=== PATIENT | male | born 1945 | race Caucasian/White ===

== ENCOUNTER → 2018-08-09 12:14 | Outpatient (CLI) | payer MEDICARE, OTHER, SELFPAY ==
[2018-08-09 12:57] LABS: Add Manual Diff / Slide Review NO; Basophils Percent Auto 1.4 % (0-2); Eosinophils Percent Auto 2.7 % (2-4); Hematocrit 42.5 % (41-53); Hemoglobin 14.3 g/dL (13.5-17.5); Lymphocytes Percent Auto 22.8 % (25-40); Mean Corpuscular HGB Conc 33.6 % (30-36); Mean Corpuscular Hemoglobin 31.8 PG (26-34); Mean Corpuscular Volume 94.5 fL (80-100); Monocytes Percent Auto 13.7 % (3-14); Neutrophils Absolute Auto 3100 /uL (3000-5900); Neutrophils Percent Auto 59.4 % (50-75); Platelet Count 237 X10^3/uL (150-400); Red Cell Distribution Width 13.6 % (11.6-14.8); White Blood Cell Count 5.2 X10^3/uL (4.5-11.0)
[2018-08-09 13:08] LABS: BUN Creatinine Ratio 21.3 (6-22); Blood Urea Nitrogen 17 mg/dL (9-20); Calcium 9.2 mg/dL (8.4-10.2); Carbon Dioxide 24 mmol/L (22-32); Chloride 101 mmol/L (98-107); Estimated Glomerular Filt Rate > 60.0 mL/min (>60); Glucose 86 mg/dL (80-110); HEMOLYSIS < 15 (0-50); Potassium 4.2 mmol/L (3.4-5.1); Sodium 141 mmol/L (137-145)
== END ==
DX: K40.90 Unilateral inguinal hernia, without obstruction or gangrene, not specified as recurrent (principal)
CPT/HCPCS: 36415; 80048; 85025

== ENCOUNTER 2019-09-24 15:45 | Emergency (ER) | payer MEDICARE, OTHER, SELFPAY ==
[2019-09-24 15:59] VITALS: BP 130/83; PULSE 84; RESP 20; TEMP 36.4; O2SAT 97
--- NOTE | 2019-09-24 16:01 | DI.RAD.S_ITS ---
PROCEDURE: XR CHEST 2V INDICATIONS: cough x2 wks TECHNIQUE: 2 views of the chest were acquired. COMPARISON: [facility], , CHEST 1 VIEW, 11/09/2016, 11:23. FINDINGS: Surgical changes and devices: None. Lungs and pleura: Mild elevation of the left diaphragm is evident, which may be exaggerated by air within the bowel. No focal consolidation is appreciated. No effusion or definite pneumothorax is identified. Mediastinum: Mediastinal contours are normal. Heart size is normal. Bones and chest wall: No suspicious bony abnormalities. Soft tissues appear unremarkable. IMPRESSION: No acute cardiopulmonary process is evident. Dictated by: Joseph Calixto M.D. on 09/24/2019 at 15:29 Approved by: Joseph Calixto M.D. on 09/24/2019 at 15:29
--- NOTE | 2019-09-24 17:23 | ED.URI ---
HPI - URI/Sore Throat <MINERVA Mejia - Last Filed: 09/25/19 01:44> General Chief Complaint: Upper Respiratory Symptoms Stated Complaint: cough couple of weeks/cant get rid of it Time Seen by Provider: 09/24/19 17:23 Source: patient Mode of arrival: Ambulatory Limitations: no limitations History of Present Illness HPI Narrative: This is a 73-year-old gentleman, former smoker, who presents to ED with cough for last 10 days. Patient reports clear productive cough without short of breath, chest pain, fever or chills, nausea or vomiting. Patient does not have previous history of respiratory disease illnesses. Patient has not tried any self treatment at home. Patient states he is taking aspirin 500 mg t.i.d. for osteoarthritis. Related Data Home Medications Medication Instructions Recorded Confirmed LEUPROLIDE ACETATE (#LUPRON) 5 mg SC Q 4 MONTHS #0 09/17/11 [bladder control] #0 11/28/17 [blood thinner] #0 11/28/17 aspirin [Chen Advanced] #0 11/28/17 clopidogrel #0 11/28/17 triamcinolone acetonide #0 11/28/17 Previous Rx's Medication Instructions Recorded ibuprofen 600 mg PO Q6HP PRN #30 tab 11/09/16 indomethacin 50 mg PO TID #42 cap 11/28/17 benzonatate 200 mg PO TID PRN #14 cap 09/24/19 dextromethorphan-guaifenesin 1 tab PO BID PRN #20 tab 09/24/19 [Mucinex DM] Review of Systems <MINERVA Mejia - Last Filed: 09/25/19 01:44> Review of Systems Narrative: General: Denies fever, chills, fatigue, malaise, sweats. HEENT: Denies sinus pain, ear pain, sore throat, difficulty swallowing, dizziness. Respiratory: See HPI Cardiovascular: Denies chest pain, palpitations, orthopnea, edema. Gastrointestinal: Denies nausea, vomiting, abdominal pain, diarrhea, constipation, melena. : Denies dysuria, frequency, incontinence, hematuria, urinary retention. Musculoskeletal: Denies weakness, joint pain or bony pain. Skin: Denies rash, skin lesions, or other. Neurologic: Denies weakness, headache, numbness, change in speech, confusion, seizures, incoordination. Psychiatric: No concerning psychosocial issues. 12-point review of systems is negative except for those stated above. Patient History <MINERVA Mejia - Last Filed: 09/25/19 01:44> Medical History Popliteal aneurysm (Acute) Prostate cancer (Acute) Surgical History H/O hernia repair (Acute) Social History (Updated 09/24/19 @ 17:37 by MINERVA Mejia) Smoking Status: Former smoker Exam <MINERVA Mejia - Last Filed: 09/25/19 01:44> Narrative Exam Narrative: GEN: Alert, oriented x 3, well appearing and nourished, and in no acute distress. Head: Normal cephalic, atraumatic. No scalp or temporal tenderness, palpable mass or rash. EYES: Pupils are equal, round, and reactive to light and accommodation. Extraocular muscles are intact bilaterally. There is no subconjunctival hemorrhage, exudate and sclera non-icteric. ENT: Bilateral auditory canals and tympanic membranes clear. Hearing grossly intact. Nose without bleeding, purulent discharge or deviation. Facial sinuses nontender to palpate. Mucous membrane moist, no mucosal lesion. Throat without erythema, tonsillar hypertrophy or exudate. Uvula in midline, airway patent. Neck: Trachea in midline. No JVD, non-tender without lymphadenopathy. No masses or thyroid megaly. Supple, non-tender and no meningeal signs. CARDIAC: Normal regular rate and rhythm without murmurs, gallops, or rubs. No chest wall tenderness. No peripheral edema, cyanosis or pallor. Capillary refill is less than 2 seconds. RESPIRATORY: Lungs are clear to auscultate bilaterally. No cough, wheezes, rales, or rhonchi. No stridor, respiratory distress, increase work of breathing, or accessary muscle used. ABD: Abdomen soft, nontender and non-distended. No guarding or rebound tenderness to palpate. Bowel sounds are normal in all 4 quadrants. There is no palpable masses or organomegaly. EXT: Full painless ROM of all extremities with no loss of sensation, strength, effusion or edema. SKIN: Warm, dry, normal color for patient. No erythema, lesions or rash over visible areas. BACK: Nontender without deformity or crepitance. No flank tenderness. NEUROLOGICAL: Alert and oriented to place, time and person. Sensation and motor function intact bilaterally. No facial droops, dysphasia. PSYCHIATRIC: Good judgement and reason, without hallucinations, abnormal affect or abnormal behaviors during the examination. Patient is not suicidal. Initial Vital Signs Initial Vital Signs: Vital Signs Temperature 97.6 F 09/24/19 15:59 Pulse Rate 84 09/24/19 15:59 Respiratory Rate 20 09/24/19 15:59 Blood Pressure 130/83 09/24/19 15:59 Pulse Oximetry 97 09/24/19 15:59 <Mayra Echeverria MD - Last Filed: 09/25/19 18:42> Initial Vital Signs Initial Vital Signs: Vital Signs Temperature 97.6 F 09/24/19 15:59 Pulse Rate 84 09/24/19 15:59 Respiratory Rate 20 09/24/19 15:59 Blood Pressure 130/83 09/24/19 15:59 Pulse Oximetry 97 09/24/19 15:59 Course <MINERVA Mejia - Last Filed: 09/25/19 01:44> Orders Ordered: ED Orders 09/24/19 16:01 Chest [XR chest 2V] Stat Vital Signs Vital signs: Vital Signs - 8 hr 09/24/19 15:59 Temperature 97.6 F Pulse Rate 84 Respiratory Rate 20 Blood Pressure 130/83 Pulse Oximetry 97 <Mayra Echeverria MD - Last Filed: 09/25/19 18:42> Orders Ordered: ED Orders 09/24/19 16:01 Chest [XR chest 2V] Stat Vital Signs Vital signs: Vital Signs - 8 hr 09/24/19 15:59 Temperature 97.6 F Pulse Rate 84 Respiratory Rate 20 Blood Pressure 130/83 Pulse Oximetry 97 MDM - URI/Sore Throat <MINERVA Mejia - Last Filed: 09/25/19 01:44> Differential Diagnosis Differential diagnosis: Likely upper respiratory infection and other (Bronchitis, pneumonia) Medical Records Attestation: I reviewed the patient's medical records. Imaging Data Chest x-ray: Radiologist's impression: [address] [address] XRay Report Signed Patient: Gregory Colvin EMR#: [id number] : 4Acct:[id number] Age/Sex: 73 / MDate of Service: 09/24/19 Loc: ED Accession Number: [id number] Procedure: XR chest 2V Ordering Provider: Mayra Echeverria MD PROCEDURE: XR CHEST 2V INDICATIONS: cough x2 wks TECHNIQUE: 2 views of the chest were acquired. COMPARISON: [facility], , CHEST 1 VIEW, 11/09/2016, 11:23. FINDINGS: Surgical changes and devices: None. Lungs and pleura: Mild elevation of the left diaphragm is evident, which may be exaggerated by air within the bowel. No focal consolidation is appreciated. No effusion or definite pneumothorax is identified. Mediastinum: Mediastinal contours are normal. Heart size is normal. Bones and chest wall: No suspicious bony abnormalities. Soft tissues appear unremarkable. IMPRESSION: No acute cardiopulmonary process is evident. Dictated by: Joseph Calixto M.D. on 09/24/2019 at 15:29 Approved by: Jospeh Calixto M.D. on 09/24/2019 at 15:29 [facility] Narrative Medical decision making narrative: This is a 73 year male who presents to ED with nearly 10 day duration of clear mucus productive cough. Patient denies chest pain, dyspnea, fever, nausea or vomiting. Lung sounds are clear to auscultate without respiratory distress. Chest x-ray shows no acute findings such as focal consolidation or effusion. I discussed in detail with patient to treat symptoms with supportive care and cough may last up to 2-3 weeks. Patient discharged to home with tests alone cough per his and Mucinex DM. Patient advised to hydrate well and rest. Strict return precautions were discussed with patient and patient verbalized understanding. [facility] health Resource contact phone number has been provided for patient to arrange primary care physician. Patient agrees with the treatment plan. Discharge Plan Departure Patient Disposition: Home Clinical Impression: Upper respiratory infection Qualifiers: URI type: unspecified URI Qualified Code(s): J06.9 - Acute upper respiratory infection, unspecified Discharge Date/Time: 09/24/19 18:24 Instructions: DI for Viral Upper Respiratory Infection -- Adult Activity Restrictions/Additional Instructions: The You have been diagnosed with [upper respiratory infection. X-ray test today does not show acute findings such as pneumonia. Her lung sounds are clear in all lobes. He did not have fever.]. What to do: *Take your medications as directed. Please take Mucinex DM with congestion. Tessalon Perles as needed 3 times a day for cough. Please hydrate well and rest. *Follow up with your primary care provider in 2-3 days, call for an appointment. Let them know you were seen in the ED and that we asked you to be seen in follow up. *Return to ED if you have any new, worsening, or concerning symptoms, such as [chest pain, breathing difficulty, high fever, unable to tolerate fluids, feeling like fainting, or any acute concerns]. Prescriptions: New benzonatate 200 mg capsule 200 mg PO TID PRN (Reason: cough) Qty: 14 RF: 0 dextromethorphan-guaifenesin [Mucinex DM] 60-1,200 mg tablet extended release 12 hr 1 tab PO BID PRN (Reason: cold symptoms) Qty: 20 RF: 0 No Action LEUPROLIDE ACETATE (#LUPRON) 5 mg SC Q 4 MONTHS Qty: 0 RF: 0 ibuprofen 600 MG tablet 600 mg PO Q6HP PRNQty: 30 RF: 0 [bladder control] Qty: 0 RF: 0 [blood thinner] Qty: 0 RF: 0 clopidogrel 75 mg tablet Qty: 0 RF: 0 triamcinolone acetonide 0.025 % cream Qty: 0 RF: 0 aspirin [Chen Advanced] 500 MG tablet Qty: 0 RF: 0 indomethacin 50 MG capsule 50 mg PO TID Qty: 42 RF: 0 Referrals: [facility] [Outside]
== END 2019-09-24 18:24 | disposition home or self-care (01) ==
PROVIDERS: Emergency Provider Nurse Practitioner Family
DX: J06.9 Acute upper respiratory infection, unspecified (principal)
CPT/HCPCS: 71046; 99283

== ENCOUNTER 2019-10-01 07:45 | Emergency (ER) | payer MEDICARE, OTHER, SELFPAY ==
[2019-10-01 07:50] VITALS: BP 148/85; PULSE 65; RESP 20; TEMP 36.8; O2SAT 97; BMI 27.7
--- NOTE | 2019-10-01 08:04 | ED_ITS ---
HPI - URI/Sore Throat General Chief Complaint: Upper Respiratory Symptoms Stated Complaint: coughing,hard rattling Time Seen by Provider: 10/01/19 07:49 Source: patient Mode of arrival: Family Vehicle Limitations: no limitations History of Present Illness HPI Narrative: Patient is 73-year-old male who's had ongoing cough and upper respiratory symptoms for 2 weeks. He was seen evaluated here on 09/24/2019 he had an x-ray which was negative. Told was a viral syndrome. Given Mucinex and sent home. He thought it was maybe getting little bit better over last night he had quite a coughing spell. He denies any chest pain or shortness of breath he denies any productive cough. He has not had any body aches sore throat. He is able to walk and ambulate as he normally does without any difficulty. He says now has symptoms as well. He is worried with the [place] holiday coming up mode that he might be contagious till. MD Complaint: cough Duration: intermittent Related Data Home Medications Medication Instructions Recorded Confirmed LEUPROLIDE ACETATE (#LUPRON) 5 mg SC Q 4 MONTHS #0 09/17/11 [bladder control] #0 11/28/17 [blood thinner] #0 11/28/17 aspirin [Chen Advanced] #0 11/28/17 clopidogrel #0 11/28/17 triamcinolone acetonide #0 11/28/17 Previous Rx's Medication Instructions Recorded ibuprofen 600 mg PO Q6HP PRN #30 tab 11/09/16 indomethacin 50 mg PO TID #42 cap 11/28/17 benzonatate 200 mg PO TID PRN #14 cap 09/24/19 dextromethorphan-guaifenesin 1 tab PO BID PRN #20 tab 09/24/19 [Mucinex DM] albuterol sulfate 2 puff INHALATION Q4-6H PRN #8.5 10/01/19 gram Allergies Allergy/AdvReac Type Severity Reaction Status Date / Time No Known Drug Allergies Allergy Verified 10/01/19 08:07 Review of Systems Review of Systems Narrative: GENERAL: Denies chills, fatigue, malaise, fever, sweats, travel HEENT: Denies sinus pain, ear pain, sore throat, difficulty swallowing, neck pain RESPIRATORY: See HPI CARDIOVASCULAR: Denies chest pain, palpitations, orthopnea, edema GASTROINTESTINAL: Denies nausea, vomiting, abdominal pain, diarrhea, constipation, melena. : Denies dysuria, frequency, incontinence, hematuria, urinary retention, flank pain. MUSCULOSKELETAL: Denies weakness, joint pain, or bony pain SKIN: No rash, no erythema, no pruritus NEUROLOGIC: Denies weakness, dizziness, headache, numbness, change in speech, confusion PSYCHIATRIC: No concerning psychosocial issues. 12 point review of systems is negative except for those stated above and HPI Patient History Medical History Popliteal aneurysm (Acute) Prostate cancer (Acute) Surgical History H/O hernia repair (Acute) Social History Smoking Status: Former smoker Smoking Status: Former smoker Exam Initial Vital Signs Initial Vital Signs: Vital Signs Temperature 98.2 F 10/01/19 07:50 Pulse Rate 65 10/01/19 07:50 Respiratory Rate 20 10/01/19 07:50 Blood Pressure 148/85 H 10/01/19 07:50 Pulse Oximetry 97 10/01/19 07:50 GENERAL: Well-appearing, well-nourished and in no acute distress. HEENT: Head atraumatic,EOMI, pupils reactive, face symmetric, moist mucous membranes CARDIOVASCULAR: Regular rate and rhythm without murmurs, rubs or gallops. RESPIRATORY: Coarse breath sounds clear with coughing but no tachypnea, no wheezes speaks in full sentences no sign of respiratory distress ABDOMEN: Soft, nontender. Normoactive bowel sounds all 4 quadrants. No guarding or rebound. : No CVA tenderness EXTREMITIES: Normal range of motion, no clubbing or edema. Neurovascularly intact NEUROLOGICAL: Alert and oriented x4. SKIN: Warm, dry, no laceration, no petechiae, no rashes or lesions. Course Orders Ordered: ED Orders 10/01/19 08:05 XR chest 2V Stat Discontinued Medications Albuterol (Ventolin) 2.5 mg INH NOW ONE Stop: 10/01/19 08:06 Last Admin: 10/01/19 08:21 Dose: 2.5 mg Documented by: JESSICA Vital Signs Vital signs: Vital Signs - 8 hr 10/01/19 07:50 10/01/19 08:22 Temperature 98.2 F Pulse Rate 65 64 Respiratory Rate 20 Blood Pressure 148/85 H Pulse Oximetry 97 98 [facility] - URI/Sore Throat Imaging Data Chest x-ray: Radiologist's impression: PROCEDURE: XR CHEST 2V INDICATIONS: cough TECHNIQUE: 2 views of the chest were acquired. COMPARISON: [facility], CR, XR CHEST 2V, 09/24/2019, 15:57. FINDINGS: Surgical changes and devices: None. Lungs and pleura: Lungs are clear. No pleural effusions or pneumothorax. Mediastinum: Mediastinal contours are normal. Heart size is normal. Bones and chest wall: No suspicious bony abnormalities. Soft tissues appear unremarkable. IMPRESSION: No evidence acute pulmonary process. Dictated by: Milo Menjivar M.D. on 10/01/2019 at 8:40 MDM Narrative Medical decision making narrative: PATIENT IS FEELING BETTER AFTER NEBULIZER TREATMENT. He overall appears well he has no signs or symptoms of shortness of breath fever or any other concerning symptoms. This is likely an upper respiratory infection viral in nature. X-ray does show any pneumonia no for antibiotics. Discharge Plan Departure Patient Disposition: Home Clinical Impression: Upper respiratory infection Qualifiers: URI type: unspecified viral URI Qualified Code(s): J06.9 - Acute upper respiratory infection, unspecified Instructions: DI for Viral Upper Respiratory Infection -- Adult Activity Restrictions/Additional Instructions: *You have been diagnosed with upper respiratory infection *What to do: At this time still no indication for antibiotics. Unfortunately her symptoms can linger for a couple of weeks. Continue to rest and hydrate. Consider wearing a mask when seeing people *Continue to take medications as directed Albuterol 1-2 puffs with spacer every 4 hours if needed for coughing spells--> SENT TO [facility] [place] *Follow up with your primary care provider in 2-3 days *Return to ER if you should have increasing shortness of breath body aches fever weakness confusion chest pain or any new, worsening or concerning symptoms Prescriptions: New albuterol sulfate 90 mcg/actuation HFA aerosol inhaler 2 puff INHALATION Q4-6H PRN (Reason: shortness of breath or wheezing) Qty: 8.5 RF: 0 No Action LEUPROLIDE ACETATE (#LUPRON) 5 mg SC Q 4 MONTHS Qty: 0 RF: 0 ibuprofen 600 MG tablet 600 mg PO Q6HP PRNQty: 30 RF: 0 [bladder control] Qty: 0 RF: 0 [blood thinner] Qty: 0 RF: 0 clopidogrel 75 mg tablet Qty: 0 RF: 0 triamcinolone acetonide 0.025 % cream Qty: 0 RF: 0 aspirin [Chen Advanced] 500 MG tablet Qty: 0 RF: 0 indomethacin 50 MG capsule 50 mg PO TID Qty: 42 RF: 0 benzonatate 200 mg capsule 200 mg PO TID PRN (Reason: cough) Qty: 14 RF: 0 dextromethorphan-guaifenesin [Mucinex DM] 60-1,200 mg tablet extended release 12 hr 1 tab PO BID PRN (Reason: cold symptoms) Qty: 20 RF: 0
[2019-10-01] MEDS: ALBUTEROL 2.5 MG/3 ML NEB (ADULT) INH (08:21)
[2019-10-01 08:22] VITALS: PULSE 64; O2SAT 98
[2019-10-01 09:29] VITALS: BP 133/72; PULSE 64; RESP 18; O2SAT 98
== END 2019-10-01 09:31 | disposition home or self-care (01) ==
PROVIDERS: Emergency Provider Emergency Medicine
DX: J06.9 Acute upper respiratory infection, unspecified (principal)
CPT/HCPCS: 71046; 94640; 99282; 99283; J7613

== ENCOUNTER → 2019-12-12 15:00 | Outpatient (CLI) | payer MEDICARE, OTHER, SELFPAY ==
[2019-12-12 16:48] LABS: Add Manual Diff / Slide Review NO; Basophils Absolute Auto 100 /uL (0-100); Eosinophils Absolute Auto 100 /uL (0-450); Eosinophils Percent Auto 1.9 % (2-4); Hematocrit 39.5 % (41-53); Hemoglobin 13.2 g/dL (13.5-17.5); Lymphocytes Absolute Auto 1400 /uL (1100-4500); Lymphocytes Percent Auto 22.5 % (25-40); Mean Corpuscular HGB Conc 33.3 % (30-36); Mean Corpuscular Hemoglobin 31.5 PG (26-34); Mean Corpuscular Volume 94.5 fL (80-100); Monocytes Absolute Auto 700 /uL (0-900); Monocytes Percent Auto 10.4 % (3-14); Neutrophils Absolute Auto 4000 /uL (1500-7000); Neutrophils Percent Auto 64.2 % (50-75); Platelet Count 218 X10^3/uL (150-400); Red Blood Cell Count 4.18 X10^6/uL (4.5-5.9); Red Cell Distribution Width 14.4 % (11.6-14.8); White Blood Cell Count 6.3 X10^3/uL (4.5-11.0)
[2019-12-12 17:29] LABS: Alanine Aminotransferase 18 IU/L (<50); Albumin 4.2 g/dL (3.5-5.0); Albumin Globulin Ratio 1.3 (1.0-2.8); Alkaline Phosphatase 78 U/L (38-126); Aspartate Aminotransferase 26 IU/L (17-59); BUN Creatinine Ratio 15.3 (6-22); Bilirubin Total 0.5 mg/dL (0.2-1.3); Blood Urea Nitrogen 23 mg/dL (9-20); Calcium 9.7 mg/dL (8.4-10.2); Carbon Dioxide 24 mmol/L (22-32); Chloride 107 mmol/L (98-107); Estimated Glomerular Filt Rate 45.6 mL/min (>60); Globulin 3.2 g/dL (1.7-4.1); Glucose 79 mg/dL (80-110); HEMOLYSIS < 15 (0-50); Potassium 4.2 mmol/L (3.4-5.1); Sodium 141 mmol/L (137-145); Total Protein 7.4 g/dL (6.3-8.2)
[2019-12-12 18:00] LABS: Prostate Specific Antigen 1.81 ng/mL (0.10-4.00)
== END ==
PROVIDERS: Pediatrics; Referring Provider Physician Assistant Medical; Visit Provider Physician Assistant Medical
DX: C61 Malignant neoplasm of prostate (principal)
CPT/HCPCS: 36415; 80053; 84153; 85025

== ENCOUNTER → 2019-12-13 16:13 | Outpatient (CLI) | payer MEDICARE, OTHER, SELFPAY ==
[2019-12-13 17:24] LABS: Cholesterol 233 mg/dL (140-199); HDL Cholesterol 64 mg/dL (40-60); LDL Cholesterol Calculated 151 mg/dL (<100); Triglycerides 91 mg/dL (35-150)
== END ==
PROVIDERS: Referring Provider Nuclear Medicine Nuclear Cardiology; Visit Provider Nuclear Medicine Nuclear Cardiology
DX: E78.5 Hyperlipidemia, unspecified (principal)
CPT/HCPCS: 36415; 80061

== ENCOUNTER → 2020-02-01 11:12 | Outpatient (CLI) | payer MEDICARE, OTHER, SELFPAY ==
[2020-02-01 12:45] LABS: Cholesterol 223 mg/dL (140-199); HDL Cholesterol 56 mg/dL (40-60); LDL Cholesterol Calculated 148 mg/dL (<100); Triglycerides 95 mg/dL (35-150)
== END ==
PROVIDERS: Referring Provider Nuclear Medicine Nuclear Cardiology; Visit Provider Physician Assistant Medical
DX: E78.5 Hyperlipidemia, unspecified (principal); C61 Malignant neoplasm of prostate
CPT/HCPCS: 36415; 80061; 84153

== ENCOUNTER 2020-08-05 10:50 | Observation (INO) | payer MEDICARE, OTHER, SELFPAY ==
[2020-08-05] VITALS (21 sets, daily range): BP systolic 121–168; BP diastolic 59–90; PULSE 55–82; RESP 11–23; TEMP 36.2–36.6; O2SAT 95–100; BMI 28.9
--- NOTE | 2020-08-05 11:21 | DI.CT.S_ITS ---
PROCEDURE: CT STROKE INDICATIONS: vision change with balance problem TECHNIQUE: Noncontrast 4.5 mm thick angled axial sections acquired from the foramen magnum to the vertex, with coronal reformats. For radiation dose reduction, the following was used: automated exposure control, adjustment of mA and/or kV according to patient size. COMPARISON: None. FINDINGS: Image quality: Excellent. CSF spaces: Basal cisterns are patent. No extra-axial fluid collections. The ventricles are symmetric in size and shape. Brain: No intracranial bleeds or masses. There is cerebral volume loss for age, with resultant ventricular and sulcal prominence. There are periventricular and deep white matter chronic small vessel ischemic changes. There is intracranial internal carotid artery atherosclerosis. Skull and face: Calvarium and visualized facial bones appear intact, without suspicious lesions. Sinuses: Visualized sinuses and mastoids are clear. IMPRESSION: No contraindication to tPA administration. No sign of acute or subacute stroke found. Findings immediately called to the emergency room physician caring for the patient at 11:35 a.m. This study fulfills neurological imaging criteria for inclusion or exclusion of acute stroke therapies based on available published neurological guidelines. Dictated by: Oseas Sellers M.D. on 08/05/2020 at 11:35 Approved by: Oseas Sellers M.D. on 08/05/2020 at 11:37
--- NOTE | 2020-08-05 11:29 | ED_ITS ---
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 His complaints include flashers and visual disturbance in both eyes and instability while walking. His symptoms started while driving to the [place] and his visual change has completely resolved. However, when walking in he was still having trouble g etting around. He states he went to bed in his normal state of health, but maybe felt a bit tired. He awoke at 0500 and was fine and (as stated) symptoms started at about 0900. He takes a large amount of aspirin daily for his arthritis. He denies fever or chills. He's had no recent traumatic injury. He was activated as a code stroke and taken to . Onset (ago): minute(s) Last Observed Normal: 09:00 Location: ataxia History of same: No Severity: moderate Quality: weak Relieving factors: none Exacerbating factors: none Context: sudden onset On Anticoagulants: Yes (Aspirin (states 500 mg 4 x daily)) Associated symptoms: denies other symptoms Treatments Prior to Arrival: Aspirin Related Data Home Medications Medication Instructions Recorded Confirmed LEUPROLIDE ACETATE (#LUPRON) 5 mg SC Q 4 MONTHS #0 09/17/11 Chen Advanced 1,000 mg PO BID #0 11/28/17 08/05/20 tamsulosin 0.4 mg PO BID 08/05/20 08/05/20 Allergies Allergy/AdvReac Type Severity Reaction Status Date / Time No Known Drug Allergies Allergy Verified 10/01/19 08:07 Review of Systems Constitutional Constitutional: Denies chills, Denies fatigue, Denies fever(s), Denies frequent falls, Denies lethargy and Denies weakness Eyes Eyes: Reports change in vision, Denies eye discharge, Denies irritation and Denies loss of vision ENT Ears, Nose, Mouth, and Throat: Denies change in voice, Denies dizziness, Denies neck pain, Reports disequilibrium, Denies sore throat and Denies throat swelling Cardiovascular Cardiovascular: Denies chest pain, Denies irregular heart rhythm, Denies lightheadedness, Denies palpitations, Denies dyspnea, Denies dyspnea on exertion and Denies orthopnea Respiratory Respiratory: Denies cough, Denies dyspnea, Denies dyspnea on exertion and Denies wheezing Gastrointestinal Gastrointestinal: Denies abdominal pain, Denies change in bowel habits, Denies diarrhea, Denies nausea and Denies vomiting Musculoskeletal Musculoskeletal: Denies neck pain and Denies numbness Integumentary/Breasts Skin/Breast: Denies pruritus, Denies erythema, Denies rash and Denies wounds Neurologic Neurologic: Denies behavioral changes, Denies confusion, Denies dizziness, Denies frequent falls, Denies loss of vision, Denies numbness, Reports disequilibrium and Denies weakness Psychiatric Psychiatric: Denies anxiety, Denies behavioral changes, Denies confusion, Denies depression, Denies homicidal ideation and Denies suicidal ideation Endocrine Endocrine: Denies fatigue, Denies flushing and Denies palpitations Hematologic/Lymphatic Hematologic/Lymphatic: Denies easy bruising Allergic/Immunologic Allergic/Immunologic: Denies urticaria, Denies throat swelling and Denies wheezing Patient History Medical History Popliteal aneurysm (Acute) Prostate cancer (Acute) Surgical History H/O hernia repair (Acute) Social History Smoking Status: Former smoker Smoking Status: Former smoker alcohol intake frequency: 0-2 drinks per day Substance Use Type: does not use Exam Narrative Exam Narrative: GENERAL: [74] year old patient appears stated age. Well- nourished, well-developed patient, in mild distress. HEAD: Atraumatic. Normocephalic. EYES: Pupils equal round and reactive. Extraocular motions intact. No scleral icterus. No injection or drainage. ENT: Nose without bleeding, purulent drainage. Throat without erythema, tonsillar hypertrophy or exudate. Airway patent. NECK: Trachea midline. Non tender CARDIOVASCULAR: Regular rate and rhythm without murmurs, gallops, or rubs. RESPIRATORY: Clear to auscultation. Breath sounds equal bilaterally. No wheezes, rales, or rhonchi. GASTROINTESTINAL: Abdomen soft, non-tender, nondistended. EXTREMITIES: No edema or joint tenderness. BACK: Nontender without deformity or crepitance. No flank tenderness. NEURO: AOx3. SKIN: No rash or erythema of visible areas Initial Vital Signs Initial Vital Signs: Vital Signs Temperature 97.9 F 08/05/20 10:50 Pulse Rate 78 08/05/20 10:50 Respiratory Rate 14 08/05/20 10:50 Blood Pressure 121/71 08/05/20 10:50 Pulse Oximetry 98 08/05/20 10:50 Scores NIH Stroke Scale Level of Conciousness: Alert, keenly responsive Ask month/age: Answers both questions correctly. Open/close eyes, close hand: Performs both tasks correctly Best gaze horizontal: Normal Visual cerrato: No visual loss Facial palsy: Normal symetrical movement Left arm drift: No drift for full 10 sec Right arm drift: No drift for full 10 sec Left leg drift: No drift for full 5 sec Right leg drift: No drift for full 5 sec Limb ataxia: Absent Sensory on face/arms/legs: Normal, no sensory loss Best language: No aphasia, normal Dysarthria: Normal Extinction or inattention: No abnormality Total NIH Stroke scale score: 0 Course Orders Ordered: ED Orders 08/05/20 11:07 Basic Metabolic Panel Stat Complete Blood Count AUTO DIFF Stat Partial Thromboplastin Time Stat Prothrombin Time INR Stat Salicylate Stat Troponin & CK Cardiac Panel Stat Urine Drug Screen, Rapid Stat EKG-12 Lead Stat 08/05/20 11:21 CT Stroke Stat 08/05/20 11:24 Venous Blood Gas Stat 08/05/20 11:55 CT angio head and neck Stat 08/05/20 12:10 COVID19 -ED/INPAT/OR/L&D Stat Sodium Chloride (Normal Saline 0.9%) 1,000 mls @ 150 mls/hr IV CONT MICHELLE Last Admin: 08/05/20 11:41 Dose: 150 mls/hr Documented by: AUGUSTINA Reevaluation(s) Reevaluation #1: symptoms largely resolved at this point. Able to ambulate through the department. Resolution of symptoms without intervention raises the likelihood of TIA. Patient will require hospitalization for further evaluation including echocardiogram and a likely MRI Vital Signs Vital signs: Vital Signs - 8 hr 08/05/20 10:50 08/05/20 10:59 08/05/20 11:00 Temperature 97.9 F Pulse Rate 78 79 82 Respiratory Rate 14 16 22 Blood Pressure 121/71 142/59 H Pulse Oximetry 98 98 97 08/05/20 11:15 08/05/20 11:35 08/05/20 11:45 Temperature Pulse Rate 73 63 58 L Respiratory Rate 23 16 Blood Pressure Pulse Oximetry 99 98 99 08/05/20 12:00 08/05/20 12:15 08/05/20 12:16 Temperature Pulse Rate 59 L 81 64 Respiratory Rate 19 20 Blood Pressure 137/75 Pulse Oximetry 99 95 98 08/05/20 12:30 Temperature Pulse Rate 63 Respiratory Rate 20 Blood Pressure 135/74 Pulse Oximetry 97 MDM - Neuro Symptoms/Deficit Lab Data Result diagrams: 08/05/20 11:07 08/05/20 11:07 Labs: Lab Results 08/05/20 08/05/20 08/05/20 Range/Units 11:07 11:07 11:07 WBC 5.1 (4.5-11.0) X10^3/uL RBC 4.06 L (4.5-5.9) X10^6/uL Hgb 12.7 L (13.5-17.5) g/dL Hct 38.5 L (41-53) % MCV 94.9 (80-100) fL MCH 31.2 (26-34) PG MCHC 32.9 (30-36) % RDW 13.9 (11.6-14.8) % Plt Count 242 (150-400) X10^3/uL Neut % (Auto) 67.3 (50-75) % Lymph % (Auto) 18.7 L (25-40) % Wheeler % (Auto) 11.6 (3-14) % Eos % (Auto) 1.7 L (2-4) % Baso % (Auto) 0.7 (0-2) % Neut # (Auto) 3400 (6739-1108) /uL Lymph # (Auto) 1000 L (4252-5049) /uL Wheeler # (Auto) 600 (0-900) /uL Eos # (Auto) 100 (0-450) /uL Baso # (Auto) 0 (0-100) /uL PT 11.2 (10.1-12.7) SECONDS INR 1.0 (0.9-1.3) APTT 30 (26.4-36.2) SECONDS VBG pH (7.33-7.43) VBG pCO2 (45-50) mmHg VBG pO2 (35-45) mmHg VBG HCO3 (23-28) mmol/L VBG Total CO2 (24-29) mmol/L VBG O2 Saturation (70-75) % VBG Base Excess (0-4) mmol/L Sodium 137 (137-145) mmol/L Potassium 4.0 (3.4-5.1) mmol/L Chloride 106 (98-107) mmol/L Carbon Dioxide 26 (22-32) mmol/L BUN 22 H (9-20) mg/dL Creatinine 0.80 (0.66-1.25) mg/dL Estimated GFR > 60.0 (>60) mL/min BUN/Creatinine Ratio 27.5 H (6-22) Glucose 87 (80-110) mg/dL Calcium 8.8 (8.4-10.2) mg/dL Total Creatine Kinase 53 L (55-170) U/L CK-MB (CK-2) TNP CK-MB (CK-2) Rel Index TNP Troponin I < 0.012 (0.01-0.034) ng/mL Salicylates 1.0 (<20) mg/dL COVID-19 PCR (Negative) 08/05/20 08/05/20 Range/Units 11:24 12:10 WBC (4.5-11.0) X10^3/uL RBC (4.5-5.9) X10^6/uL Hgb (13.5-17.5) g/dL Hct (41-53) % MCV (80-100) fL MCH (26-34) PG MCHC (30-36) % RDW (11.6-14.8) % Plt Count (150-400) X10^3/uL Neut % (Auto) (50-75) % Lymph % (Auto) (25-40) % Wheeler % (Auto) (3-14) % Eos % (Auto) (2-4) % Baso % (Auto) (0-2) % Neut # (Auto) (9082-7364) /uL Lymph # (Auto) (3346-1345) /uL Wheeler # (Auto) (0-900) /uL Eos # (Auto) (0-450) /uL Baso # (Auto) (0-100) /uL PT (10.1-12.7) SECONDS INR (0.9-1.3) APTT (26.4-36.2) SECONDS VBG pH 7.48 H (7.33-7.43) VBG pCO2 32.7 L (45-50) mmHg VBG pO2 30 L (35-45) mmHg VBG HCO3 24 (23-28) mmol/L VBG Total CO2 25 (24-29) mmol/L VBG O2 Saturation 64 L (70-75) % VBG Base Excess 1.0 (0-4) mmol/L Sodium (137-145) mmol/L Potassium (3.4-5.1) mmol/L Chloride (98-107) mmol/L Carbon Dioxide (22-32) mmol/L BUN (9-20) mg/dL Creatinine (0.66-1.25) mg/dL Estimated GFR (>60) mL/min BUN/Creatinine Ratio (6-22) Glucose (80-110) mg/dL Calcium (8.4-10.2) mg/dL Total Creatine Kinase (55-170) U/L CK-MB (CK-2) CK-MB (CK-2) Rel Index Troponin I (0.01-0.034) ng/mL Salicylates (<20) mg/dL COVID-19 PCR Negative (Negative) Point of Care Testing Glucose POC 101 Urine Dip Bedside Urine Glucose Negative Bedside Urine Bilirubin - Negative Bedside Urine Ketone - Negative Urine Specific [place] 1.010 Bedside Urine Occult Blood - Negative Bedside Urine pH 6.0 Bedside Urine Protein - Negative Bedside Urine Urobilinogen - Negative Bedside Urine Nitrite - Negative Bedside Urine Leukocytes - Negative Esterase Imaging Data CT scan - head: Radiologist's Impression: [address] [address] [address] Scan Report Signed Patient: Gregory Colvin EMR#: [id number] : 4Acct:[id number] Age/Sex: 74 / MDate of Service: 08/05/20 Loc: ED Accession Number: [id number] Procedure: CT Stroke Ordering Provider: Deacon Tolentino D.O. PROCEDURE: CT STROKE INDICATIONS: vision change with balance problem TECHNIQUE: Noncontrast 4.5 mm thick angled axial sections acquired from the foramen magnum to the vertex, with coronal reformats. For radiation dose reduction, the following was used: automated exposure control, adjustment of mA and/or kV according to patient size. COMPARISON: None. FINDINGS: Image quality: Excellent. CSF spaces: Basal cisterns are patent. No extra-axial fluid collections. The ventricles are symmetric in size and shape. Brain: No intracranial bleeds or masses. There is cerebral volume loss for age, with resultant ventricular and sulcal prominence. There are periventricular and deep white matter chronic small vessel ischemic changes. There is intracranial internal carotid artery atherosclerosis. Skull and face: Calvarium and visualized facial bones appear intact, without suspicious lesions. Sinuses: Visualized sinuses and mastoids are clear. IMPRESSION: No contraindication to tPA administration. No sign of acute or subacute stroke found. Findings immediately called to the emergency room physician caring for the patient at 11:35 a.m. This study fulfills neurological imaging criteria for inclusion or exclusion of acute stroke therapies based on available published neurological guidelines. Dictated by: Oseas Sellers M.D. on 08/05/2020 at 11:35 Approved by: Oseas Sellers M.D. on 08/05/2020 at 11:37 [facility] [employer] DATE TYPE STATUS REF RANGE/AUTHOR Hx 08/05/20 11:55 Jassi Saleem 08/05/20 11:21 Oseas Sellers 10/01/19 08:05 Milo Menjivar 09/24/19 16:01 MarilyMoizJosephdavid ColvinGregory Henriquez 74, M1945 ADM [facility], [facility] ED R10 88.9kg Search Chart No Data to Display NF - Not included in interaction checking ONSET Today 12:30 Colvin,Gregory Henriquez 74 M [address] [address] [address] Scan Report Signed Patient: Gregory Colvin EMR#: [id number] : 4Acct:[id number] Age/Sex: 74 / MDate of Service: 08/05/20 Loc: ED Accession Number: [id number] Procedure: CT angio head and neck Ordering Provider: Deacon Tolentino D.O. PROCEDURE: CT ANGIO HEAD AND NECK INDICATIONS: stroke symptoms TECHNIQUE: Noncontrast images were performed earlier in the day and not repeated. After the administration of intravenous contrast, 1 mm thick sections acquired from the aortic arch through the [place] of [place]. Post-contrast 4.5 mm thick sections then re- acquired from the foramen magnum to the vertex. 3-dimensional snvkcka-jsvgvsicb-exdtreiezs (MIP) and/or volume rendering reformats were acquired of the central intracranial vasculature and neck separately. COMPARISON: [facility], CT, HEAD WITHOUT CONTRAST, 09/17/2011, 14:22. [facility], CT, CT STROKE, 08/05/2020, 11:20. FINDINGS: Image quality: Excellent. BRAIN: CSF spaces: Ventricles are normal in size and shape. Basal cisterns are patent. No extra-axial fluid collections. Brain: No midline shift. No intracranial bleeds or masses. Rodriguez-white matter interface appears intact. Skull and face: Calvarium and facial bones appear intact, without suspicious lesions. Orbits appear normal. Sinuses: Sinuses and mastoids are clear. HEAD CT ANGIOGRAPHY: Anterior circulation: Intracranial internal carotid arteries are normal in size and flow. The flow within the paired anterior cerebral arteries is normal and symmetric. The flow within the middle cerebral arteries is normal and symmetric. The anterior communicating artery is seen. No aneurysms are seen. Posterior circulation: Visualized portions of the vertebral arteries demonstrate normal caliber, and join to form a normal appearing basilar artery. Flow within the posterior cerebral arteries is normal and symmetric. No aneurysms are seen. NECK CT ANGIOGRAPHY: Carotid system: The great vessels demonstrate a conventional anatomy as they arise from the aortic arch. The origins of the common carotid arteries appear patent. The common carotid arteries demonstrate normal caliber and courses. The bifurcation regions are both widely patent. The internal carotid arteries demonstrate normal calibers and courses. Posterior circulation: The origins of the vertebral arteries both appear widely patent. The more superior extracranial portions of both vertebral arteries also demonstrate normal courses and calibers. They join to form a normal appearing basilar artery. Soft tissues: Visualized neck soft tissues demonstrate no suspicious abnormalities. Bones: No suspicious bony lesions. Visualized cervical spine appears normally aligned. Relatively prominent lower cervical spine degenerative changes are seen, including moderate disc space narrowing at C4-C5, with moderate to severe disc space narrowing at C5-C6 and C6-C7. IMPRESSION: No significant intracranial arterial abnormality is seen. Within the arteries of the neck, no hemodynamically significant stenosis can be seen. Cervical spine degenerative changes are seen, which are most prominent inferio rly. Any quantitative measurements of stenosis were performed using NASCET criteria. Dictated by: Jassi Saleem M.D. on 08/05/2020 at 10:57 Approved by: Jassi Saleem M.D. on 08/05/2020 at 11:06 ECG Data Attestation: I personally reviewed and interpreted this ECG as follows: Interpretation: NSR with rate of 73. AL 200. QRS 76. QT 396. No ectopy. Q wave in inferior leads. MDM Narrative Medical decision making narrative: patient requires hospitalization for further evaluation. He arrived in time frame which would allow for TPA but given complete resolution of symptoms he is not a candidate. Discharge Plan Departure Patient Disposition: Admitted as Observation Clinical Impression: Transient cerebral ischemia Qualifiers: Transient cerebral ischemia type: unspecified Qualified Code(s): G45.9 - Transient cerebral ischemic attack, unspecified Admit Date/Time: 08/05/20 13:07 Admit Provider: Jayashree Adames
[2020-08-05] MEDS: SODIUM CHLORIDE 0.9% 1,000 ML 150 ML IV (11:41)
--- NOTE | 2020-08-05 11:55 | DI.CT.S_ITS ---
PROCEDURE: CT ANGIO HEAD AND NECK INDICATIONS: stroke symptoms TECHNIQUE: Noncontrast images were performed earlier in the day and not repeated. After the administration of intravenous contrast, 1 mm thick sections acquired from the aortic arch through the [place] of [place]. Post-contrast 4.5 mm thick sections then re-acquired from the foramen magnum to the vertex. 3-dimensional ylktzwb-qtqkqsmyv-lgrxkotciu (MIP) and/or volume rendering reformats were acquired of the central intracranial vasculature and neck separately. COMPARISON: [facility], CT, HEAD WITHOUT CONTRAST, 09/17/2011, 14:22. [facility], CT, CT STROKE, 08/05/2020, 11:20. FINDINGS: Image quality: Excellent. BRAIN: CSF spaces: Ventricles are normal in size and shape. Basal cisterns are patent. No extra-axial fluid collections. Brain: No midline shift. No intracranial bleeds or masses. Rodriguez-white matter interface appears intact. Skull and face: Calvarium and facial bones appear intact, without suspicious lesions. Orbits appear normal. Sinuses: Sinuses and mastoids are clear. HEAD CT ANGIOGRAPHY: Anterior circulation: Intracranial internal carotid arteries are normal in size and flow. The flow within the paired anterior cerebral arteries is normal and symmetric. The flow within the middle cerebral arteries is normal and symmetric. The anterior communicating artery is seen. No aneurysms are seen. Posterior circulation: Visualized portions of the vertebral arteries demonstrate normal caliber, and join to form a normal appearing basilar artery. Flow within the posterior cerebral arteries is normal and symmetric. No aneurysms are seen. NECK CT ANGIOGRAPHY: Carotid system: The great vessels demonstrate a conventional anatomy as they arise from the aortic arch. The origins of the common carotid arteries appear patent. The common carotid arteries demonstrate normal caliber and courses. The bifurcation regions are both widely patent. The internal carotid arteries demonstrate normal calibers and courses. Posterior circulation: The origins of the vertebral arteries both appear widely patent. The more superior extracranial portions of both vertebral arteries also demonstrate normal courses and calibers. They join to form a normal appearing basilar artery. Soft tissues: Visualized neck soft tissues demonstrate no suspicious abnormalities. Bones: No suspicious bony lesions. Visualized cervical spine appears normally aligned. Relatively prominent lower cervical spine degenerative changes are seen, including moderate disc space narrowing at C4-C5, with moderate to severe disc space narrowing at C5-C6 and C6-C7. IMPRESSION: No significant intracranial arterial abnormality is seen. Within the arteries of the neck, no hemodynamically significant stenosis can be seen. Cervical spine degenerative changes are seen, which are most prominent inferiorly. Any quantitative measurements of stenosis were performed using NASCET criteria. Dictated by: Jassi Saleem M.D. on 08/05/2020 at 10:57 Approved by: Jassi Saleem M.D. on 08/05/2020 at 11:06
[2020-08-05 12:10] LABS: HCO3 VBG 24 mmol/L (23-28); Oxygen Saturation VBG 64 % (70-75); PCO2 VBG 32.7 mmHg (45-50); PO2 VBG 30 mmHg (35-45); Total CO2 VBG 25 mmol/L (24-29); pH VBG 7.48 (7.33-7.43)
[2020-08-05 12:11] LABS: Add Manual Diff / Slide Review NO; Basophils Absolute Auto 0 /uL (0-100); Basophils Percent Auto 0.7 % (0-2); Eosinophils Absolute Auto 100 /uL (0-450); Eosinophils Percent Auto 1.7 % (2-4); Hematocrit 38.5 % (41-53); Hemoglobin 12.7 g/dL (13.5-17.5); Lymphocytes Absolute Auto 1000 /uL (1100-4500); Lymphocytes Percent Auto 18.7 % (25-40); Mean Corpuscular HGB Conc 32.9 % (30-36); Mean Corpuscular Hemoglobin 31.2 PG (26-34); Mean Corpuscular Volume 94.9 fL (80-100); Monocytes Absolute Auto 600 /uL (0-900); Monocytes Percent Auto 11.6 % (3-14); Neutrophils Absolute Auto 3400 /uL (1500-7000); Neutrophils Percent Auto 67.3 % (50-75); Platelet Count 242 X10^3/uL (150-400); Red Blood Cell Count 4.06 X10^6/uL (4.5-5.9); Red Cell Distribution Width 13.9 % (11.6-14.8); White Blood Cell Count 5.1 X10^3/uL (4.5-11.0)
[2020-08-05 12:17] LABS: Prothrombin Time 11.2 SECONDS (10.1-12.7)
[2020-08-05 12:20] LABS: PTT Partial Thromboplastin Tim 30 SECONDS (26.4-36.2)
[2020-08-05 12:21] LABS: BUN Creatinine Ratio 27.5 (6-22); Blood Urea Nitrogen 22 mg/dL (9-20); Calcium 8.8 mg/dL (8.4-10.2); Carbon Dioxide 26 mmol/L (22-32); Chloride 106 mmol/L (98-107); Creatine Kinase 53 U/L (55-170); Estimated Glomerular Filt Rate > 60.0 mL/min (>60); Glucose 87 mg/dL (80-110); HEMOLYSIS < 15 (0-50); Sodium 137 mmol/L (137-145)
[2020-08-05 12:33] LABS: Troponin I < 0.012 ng/mL (0.01-0.034)
--- NOTE | 2020-08-05 12:54 | PC.NURSE ---
patient tolerated well. Denies dizziness. States he feels normal
[2020-08-05 12:59] LABS: COVID19 -Nasal RAPID Negative (Negative)
--- NOTE | 2020-08-05 14:25 | PC.NURSE ---
States that he is supposed to be on another blood thinner and a medication for high cholesterol but I don't take them
[2020-08-05 14:34] LABS: UR Morphine/Opiate cutoff 300 Negative (Negative); Ur Creatinine Normal (Normal); Ur Specific Gravity Normal (Normal); Urine Amphetamines Negative (Negative); Urine Barbiturates Negative (Negative); Urine Benzodiazepines Negative (Negative); Urine Cocaine Negative (Negative); Urine MDMA Negative (Negative); Urine Methadone Negative (Negative); Urine Methamphetamines Negative (Negative); Urine Oxycodone Negative (Negative); Urine Phencyclidine Negative (Negative); Urine Tetrahydrocannabinol Negative (Negative); Urine Tricyclic Antidepressant Negative (Negative); Urine pH Normal (Normal)
--- NOTE | 2020-08-05 14:53 | PC.NURSE ---
Day shift note: 1450: Received patient from ED to room 221. Awake, alert, and pleasantly cooperative. Ambulated from chair to bed with steady gait independently. No c/o visual disturbance, headache, or off balance. VSS and afebrile on arrival. Oriented to room, environment, and plan of care. Call light within reach.
--- NOTE | 2020-08-05 16:02 | DI.MRI.S_ITS ---
PROCEDURE: MR STROKE Pre- and post-contrast brain MRI, non-contrast brain MR angiogram, pre- and postcontrast neck MR angiogram INDICATIONS: TIA TECHNIQUE: Brain: Noncontrast axial T1 spin echo, axial T2 fast spin echo, sagittal and axial FLAIR, coronal T2 fast spin echo, axial gradient echo, axial diffusion and ADC through the brain. After the administration of contrast, axial 3D VIBE of the cranial vasculature and brain. Brain MRA: Non-contrast 3-D time of flight MR angiogram, with multiple ditdupw-slotqlxrd-bfliqwdxra (MIP) reformats performed. Neck MRA: Axial and sagittal TruFISP through the neck. Coronal dynamic MR angiogram during administration of contrast in the arterial and venous phases, with 3-dimenstional zcrvloc-hdgpjqhwc-xadievxkoj (MIP) reformats constructed from subtraction images. COMPARISON: [facility], CT, CT STROKE, 08/05/2020, 11:20. [facility], CT, CT ANGIO HEAD AND NECK, 08/05/2020, 11:23. [facility], MR, STROKE PROTOCOL, 09/17/2011, 16:22. FINDINGS: Image quality: Excellent. BRAIN: CSF spaces: Ventricles are normal in size and shape. Basal cisterns are patent. No extra-axial fluid collections. Brain: No intracranial bleeds or mass effects. Rodriguez-white matter interface is normal. Diffusion weighted images show no acute ischemic insults. Age-appropriate volume loss and minimal small vessel ischemic change. Brainstem appears normal. Normal intravascular flow voids are present. No abnormal intracranial enhancement. Skull and face: Calvarial marrow signal is normal. Orbits appear normal. Sinuses: Sinuses and mastoids are clear. BRAIN MR ANGIOGRAM: Anterior circulation: Intracranial internal carotid arteries are normal in size and enhancement. The flow within the paired anterior cerebral arteries is normal and symmetric. The flow within the middle cerebral arteries is normal and symmetric. The anterior communicating artery is seen. No stenoses, occlusions, or aneurysms. Posterior circulation: The visualized portions of the vertebral arteries demonstrate normal caliber, and join to form a normal appearing basilar artery. The flow within the posterior cerebral arteries is normal and symmetric. No stenoses, occlusions, or aneurysms. NECK MR ANGIOGRAM: Carotids: Great vessels demonstrate a conventional anatomy as they arise from the aortic arch. The origins of the common carotid arteries appear patent. The calibers and courses of both common carotid arteries are normal. The bifurcation regions appear normal bilaterally. The internal carotid arteries demonstrate normal course and caliber. Posterior circulation: The origins of the vertebral arteries appear patent. More superior portions of both vertebral arteries demonstrate normal course and caliber, and join to form a normal appearing basilar artery. Miscellaneous: Subclavian arteries appear patent. Pre-contrast images through the neck show no soft tissue abnormalities. IMPRESSION: BRAIN MRI: 1. Age-appropriate volume loss and minimal small vessel ischemic change. 2. No evidence of acute stroke, hemorrhage, or mass. BRAIN MR ANGIOGRAM: No evidence of stenosis, occlusion, or aneurysm. Unremarkable. NECK MR ANGIOGRAM: Unremarkable. Widely patent internal carotid arteries. Dictated by: Milo Menjivar M.D. on 08/05/2020 at 18:33 Approved by: Milo Menjivar M.D. on 08/05/2020 at 18:40
[2020-08-05 16:26] LABS: Cholesterol 218 mg/dL (140-199); HDL Cholesterol 58 mg/dL (40-60); LDL Cholesterol Calculated 125 mg/dL (<100); Triglycerides 175 mg/dL (35-150)
[2020-08-05 16:28] LABS: Hemoglobin A1C% w Est Avg Glu 5.3 % (4.0-6.0)
[2020-08-05] MEDS: SODIUM CHLORIDE 0.9% 1,000 ML 100 ML IV (16:54)
--- NOTE | 2020-08-05 17:24 | PT-IP ANOTE ---
Checked on pt but he was mid dinner and asked to wait until later. Check back in AM with pt.
[2020-08-05] MEDS: LORazepam 2 MG/ML INJ 1 MG IV (17:40)
--- NOTE | 2020-08-05 18:00 | PM.HP.1 ---
History of Present Illness History of Present Illness Date Patient Seen: 08/05/20 Chief complaint: Vision problems Narrative: Gregory Colvin is a 74-year-old male with a past medical history significant for BPH, prostate cancer status post proton therapy, and popliteal aneurysm status post venous grafting who presented to the ED for vision changes. The patient reports he was driving to work and when he reached the security post who went to enter the security code on the newman pad was moving. He reports his head felt heavy in the front and back. He also reports dizziness and feeling off balance when he transferred from his vehicle to his medical office secretary is vehicle to be taken to the ED. He reports the symptoms lasted approximately 30 minutes. He has no previous history of CVA. He does reports a chemically induced UT due to ?asphyxiation? from inhaling diesel stove oil in a closed cabin overnight while in a remote area in [place] which was likely carbon monoxide poisoning. He was then later evaluated for coronary artery disease including cardiac stress test and echocardiogram which were reportedly normal by a knife blade polisher named Dr. Gaviria at [facility]. The patient currently has no complaints and denies headache, vision changes, lightheadedness or dizziness, chest pain, shortness of breath, cough, abdominal pain, nausea, vomiting, fever, chills, dysuria, diarrhea or constipation. The patient is admitted observation for CVA rule out. ED course: Vital signs: Temperature 97.9? F, BP 121/71, HR 78, RR 14, SpO2 98% on room air. CT brain without contrast did not demonstrate any acute intracranial abnormalities and CTA head and neck did not demonstrate any acute intracranial process or hemodynamically significant stenosis. NIH score 0. Electrolytes within normal limits. EKG demonstrated sinus rhythm without acute ischemic changes such as ST elevation or depression. Troponin negative. Patient takes high doses of aspirin 1000 mg twice daily therefore VBG was done to assess for salicylate toxicity which was normal and salicylate level was 1.0. COVID-19 negative. Patient History Medical History BPH (benign prostatic hyperplasia) (Acute) Popliteal aneurysm (Acute) Prostate cancer (Acute) Surgical History H/O cataract removal with insertion of prosthetic lens (Acute) H/O hernia repair (Acute) History of appendectomy (Acute) S/P aneurysm repair (Acute) Family & Social History Family History Mother Uterine cancer Father CVA (cerebral vascular accident) Brother Heart attack Social History: household members spouse Prior Living Arrangements RV Safety & Behavioral: Feels Safe in Current Yes Environment Been Physically Hurt or No Threatened By a Person Suicidal Ideation Description None Tobacco & Substance use: Smoking Status Former smoker, 0.5 ppd x 1 years alcohol intake frequency 1-2 drinks per day Substance Use Type Does not use Meds Home Medications and Allergies Home Medications Medication Instructions Recorded Confirmed Type LEUPROLIDE ACETATE (#LUPRON) 5 mg SC USEASDIRECTD #0 09/17/11 08/05/20 History Chen Advanced 1,000 mg PO BID #0 11/28/17 08/05/20 History tamsulosin 0.4 mg PO BID 08/05/20 08/05/20 History Allergies Allergy/AdvReac Type Severity Reaction Status Date / Time No Known Drug Allergies Allergy Verified 10/01/19 08:07 Review of Systems Review of Systems Narrative: A 10 system comprehensive review of systems was conducted with the patient and found to be negative except as above in the History of Present Illness. Exam Vital Signs (past 8 hours): - 08/05/20 10:50 08/05/20 10:59 08/05/20 11:00 Temperature 97.9 F Pulse Rate 78 79 82 Respiratory Rate 14 16 22 Blood Pressure 121/71 142/59 H Pulse Oximetry 98 98 97 08/05/20 11:15 08/05/20 11:35 08/05/20 11:45 Temperature Pulse Rate 73 63 58 L Respiratory Rate 23 16 Blood Pressure Pulse Oximetry 99 98 99 08/05/20 12:00 08/05/20 12:15 08/05/20 12:16 Temperature Pulse Rate 59 L 81 64 Respiratory Rate 19 20 Blood Pressure 137/75 Pulse Oximetry 99 95 98 08/05/20 12:30 08/05/20 12:45 08/05/20 12:52 Temperature Pulse Rate 63 63 60 Respiratory Rate 20 16 11 L Blood Pressure 135/74 168/83 H Pulse Oximetry 97 99 99 08/05/20 13:00 08/05/20 13:01 08/05/20 13:15 Temperature Pulse Rate 60 59 L 57 L Respiratory Rate 16 13 21 Blood Pressure 156/80 H Pulse Oximetry 99 100 98 08/05/20 13:30 08/05/20 13:45 08/05/20 14:50 Temperature 97.2 F L Pulse Rate 61 68 60 Respiratory Rate 23 23 16 Blood Pressure 148/90 H 156/87 H Pulse Oximetry 99 99 99 08/05/20 15:36 Temperature 97.7 F Pulse Rate 55 L Respiratory Rate 16 Blood Pressure 141/84 H Pulse Oximetry 100 Oxygen Delivery Method Room Air Narrative Exam Narrative: General: Older male sitting in bed and in no acute distress, well-developed, well-nourished, appropriately interactive. HEENT: Normocephalic, atraumatic. External ears without defect. Pupils equal, round, and reactive to light and accommodation. Anicteric sclerae, moist conjunctivae, and no lid lag. Oropharynx free of erythema and cobble stoning with moist mucosa. Neck: Supple with full range of motion. No jugular venous distension. No bruits. No lymphadenopathy or thyromegaly. Cardiovascular: Regular rate and rhythm without murmurs, rubs, or gallops appreciated. Pulmonary: Clear to auscultation bilaterally without crackles, wheezes, or rhonchi. Normal respiratory effort with no use of accessory muscles. Abdomen: Soft, bowel sounds present, nontender, nondistended. No hepatosplenomegaly or masses appreciated. Extremities: No clubbing, cyanosis, or edema. Skin: Normal temperature, turgor, and texture; no rash, ulcers, or subcutaneous nodules appreciated. Neurological: Cranial nerves grossly intact. No slurred speech or facial droop. Normal muscle strength, tone, and bulk. Reflexes, coordination, and sensory function within normal limits. No known gait impairment. Psychiatric: Normal mood and affect. Alert and oriented to person, place, and time. Objective Labs Result Diagrams: 08/05/20 11:07 08/05/20 11:07 Labs: Laboratory Results - last 24 hr 08/05/20 08/05/20 08/05/20 11:07 11:07 11:07 WBC 5.1 RBC 4.06 L Hgb 12.7 L Hct 38.5 L MCV 94.9 MCH 31.2 MCHC 32.9 RDW 13.9 Plt Count 242 Neut % (Auto) 67.3 Lymph % (Auto) 18.7 L [place] % (Auto) 11.6 Eos % (Auto) 1.7 L Baso % (Auto) 0.7 Neut # (Auto) 3400 Lymph # (Auto) 1000 L [place] # (Auto) 600 Eos # (Auto) 100 Baso # (Auto) 0 PT 11.2 INR 1.0 APTT 30 VBG pH VBG pCO2 VBG pO2 VBG HCO3 VBG Total CO2 VBG O2 Saturation VBG Base Excess Sodium 137 Potassium 4.0 Chloride 106 Carbon Dioxide 26 BUN 22 H Creatinine 0.80 Estimated GFR > 60.0 BUN/Creatinine Ratio 27.5 H Glucose 87 Hemoglobin A1c Calcium 8.8 Total Creatine Kinase 53 L CK-MB (CK-2) TNP CK-MB (CK-2) Rel Index TNP Troponin I < 0.012 Triglycerides Cholesterol LDL Cholesterol, Calc HDL Cholesterol Salicylates 1.0 U Opiates 300ng/mL cut Ur Oxycodone Screen Urine Methadone Screen Ur Barbiturates Screen U Tricyclic Antidepress Ur Phencyclidine Scrn Ur Amphetamines Screen U Methamphetamines Scrn Ur MDMA Scrn (Ecstasy) U Benzodiazepines Scrn Urine Cocaine Screen U Marijuana (THC) Screen COVID-19 PCR 08/05/20 08/05/20 08/05/20 11:07 11:07 11:24 WBC RBC Hgb Hct MCV MCH MCHC RDW Plt Count Neut % (Auto) Lymph % (Auto) [place] % (Auto) Eos % (Auto) Baso % (Auto) Neut # (Auto) Lymph # (Auto) [place] # (Auto) Eos # (Auto) Baso # (Auto) PT INR APTT VBG pH 7.48 H VBG pCO2 32.7 L VBG pO2 30 L VBG HCO3 24 VBG Total CO2 25 VBG O2 Saturation 64 L VBG Base Excess 1.0 Sodium Potassium Chloride Carbon Dioxide BUN Creatinine Estimated GFR BUN/Creatinine Ratio Glucose Hemoglobin A1c 5.3 Calcium Total Creatine Kinase CK-MB (CK-2) CK-MB (CK-2) Rel Index Troponin I Triglycerides 175 H Cholesterol 218 H LDL Cholesterol, Calc 125 H HDL Cholesterol 58 Salicylates U Opiates 300ng/mL cut Ur Oxycodone Screen Urine Methadone Screen Ur Barbiturates Screen U Tricyclic Antidepress Ur Phencyclidine Scrn Ur Amphetamines Screen U Methamphetamines Scrn Ur MDMA Scrn (Ecstasy) U Benzodiazepines Scrn Urine Cocaine Screen U Marijuana (THC) Screen COVID-19 PCR 08/05/20 08/05/20 12:10 12:34 WBC RBC Hgb Hct MCV MCH MCHC RDW Plt Count Neut % (Auto) Lymph % (Auto) [place] % (Auto) Eos % (Auto) Baso % (Auto) Neut # (Auto) Lymph # (Auto) [place] # (Auto) Eos # (Auto) Baso # (Auto) PT INR APTT VBG pH VBG pCO2 VBG pO2 VBG HCO3 VBG Total CO2 VBG O2 Saturation VBG Base Excess Sodium Potassium Chloride Carbon Dioxide BUN Creatinine Estimated GFR BUN/Creatinine Ratio Glucose Hemoglobin A1c Calcium Total Creatine Kinase CK-MB (CK-2) CK-MB (CK-2) Rel Index Troponin I Triglycerides Cholesterol LDL Cholesterol, Calc HDL Cholesterol Salicylates U Opiates 300ng/mL cut Negative Ur Oxycodone Screen Negative Urine Methadone Screen Negative Ur Barbiturates Screen Negative U Tricyclic Antidepress Negative Ur Phencyclidine Scrn Negative Ur Amphetamines Screen Negative U Methamphetamines Scrn Negative Ur MDMA Scrn (Ecstasy) Negative U Benzodiazepines Scrn Negative Urine Cocaine Screen Negative U Marijuana (THC) Screen Negative COVID-19 PCR Negative Assessment & Plan Assessment & Plan narrative: Gregory Colvin is a 74-year-old male with a past medical history significant for BPH, prostate cancer status post proton therapy, and popliteal aneurysm status post venous grafting who presented to the ED for vision changes. 1. Acute TIA, present on admission. Resolved. -Patient presented with vision changes with associated heaviness and front and back of head, imbalance, and dizziness. -Cardiovascular risk factors include: Former smoker and family history. -Initial NIH 0. Continue to monitor neurological status frequently. -CT brain without contrast did not demonstrate any acute intracranial abnormalities. -CTA head and neck did not demonstrate any acute intracranial abnormalities or significant hemodynamic stenosis in head and neck arteries. -Ordered MR stroke protocol, pending. -EKG demonstrated normal sinus rhythm with first-degree AV block. Continue to monitor closely on telemetry. -Allow for permissive hypertension x 24 hours. Ordered labetalol 10 mg IV every 4 hours as needed for SBP > 220 mmHg or DBP >110 mmHg and HR > 60 bpm or Hydralazine 10 mg every 6 hours for SBP > 220 mmHg or DBP >110 mmHg. -Risk stratify with fasting lipid panel and hemoglobin A1c, pending. -Continue aspirin 81 mg daily (counseled patient on excessive aspirin intake and discouraged use due to risk of aspirin overdose) and added atorvastatin 40 mg daily at bedtime for stroke prophylaxis. -Ordered physical and occupational therapy evaluation and treatment, pending. 2. BPH with history of prostate cancer status post proton therapy, chronic, present on admission. Stable. -Patient is status post proton therapy and receives yearly Lupron injection if PSA is elevated. -Continue home tamsulosin 0.4 mg twice daily. Code status: Full code, surrogate decision maker is designated as patient's spouse Domenica Colvin VTE prophylaxis: Enoxaparin, SCDs Patient is admitted under observation status with expected length of stay less than 2 midnights due to severity of presenting symptoms, risk of adverse event, and complexity of treatment plan. Quality VTE Deep Vein Thrombosis/Pulmonary Embolism Present on Admission: No
[2020-08-05 19:35] LABS: Thyroid Stimulating Hormone 1.83 uIU/mL (0.47-4.68)
[2020-08-05] MEDS: ATORVASTATIN 20 MG TABLET 40 MG PO (20:14)
[2020-08-05] MEDS: TAMSULOSIN 0.4 MG CAPSULE PO (20:14)
--- NOTE | 2020-08-05 20:57 | PC.NURSE ---
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 Tele placed, patient bradycardic high 40's-50's at times, now SR, rate 60's. VS stable. Dr Adames in to see patient earlier, java tech here to pickle cutter patient as they had an opening, Dr Adames ordered me to give him Lorazepam 1 mg IV prior to MRI. Patient back from MRI, has been mostly sleeping since then. Wakes easily to voice, speech slightly slurred but it appears to be residual from the lorazepam, pupils equal & reactive, speaking in full sentences, reports his vision is clear. Took his HS meds with sip of water. SBA to BR, voided 200 ml clear ana maria urine. Back to bed. Gait steady, instructed to call if he has needs/concerns or needs to get OOB. Fall precautions in place, alarm active for safety.
[2020-08-06 01:44] VITALS: O2SAT 98
[2020-08-06 04:28] VITALS: BP 158/92; PULSE 59; RESP 16; TEMP 36.2; O2SAT 98
[2020-08-06] MEDS: SODIUM CHLORIDE 0.9% 1,000 ML 100 ML IV (04:42)
[2020-08-06 07:00] VITALS: O2SAT 98
[2020-08-06 08:00] VITALS: BP 151/101; PULSE 72; RESP 15; TEMP 36.4; O2SAT 100
[2020-08-06 08:42] LABS: Salicylate < 1.0 mg/dL (<20)
--- NOTE | 2020-08-06 09:42 | OT.IP.EVAL ---
Past Medical History (Last Reviewed 08/05/20 @ 18:20 by Jayashree Adames DO) BPH (benign prostatic hyperplasia) (Acute) Popliteal aneurysm (Acute) Prostate cancer (Acute) Surgical History (Last Reviewed 08/05/20 @ 18:20 by Jayashree Adames DO) H/O cataract removal with insertion of prosthetic lens (Acute) H/O hernia repair (Acute) History of appendectomy (Acute) S/P aneurysm repair (Acute) Occupational Therapy Inpatient Evaluation/Re-Eval M1 PT/OT-IP Prior Functional Status Start: 08/06/20 16:34 Freq: NEEDED Status: Active Protocol: Document 08/06/20 08:50 [facility] (Rec: 08/06/20 16:57 [facility] [id number]) Medical Review Prior Functional Status Medical History Reviewed Yes Communication Independent Mobility and Gait Independent with no device. Activities of Daily Living and IADL's Completely independent for all Adl , IADl and works for [employer]. Social History Household Members spouse Living Arrangements RV Number of Floors (Floors) One Floor Number of Stairs To Enter/Railing? 3 steps with right hand rail going up. Home Environment Standard Height Toilet,Walk in Shower Home Equipment Hand Held Shower,Grab Bars In Shower M2 OT-IP Current Condition Start: 08/06/20 16:34 Freq: Status: Active Protocol: Document 08/06/20 08:50 [facility] (Rec: 08/06/20 16:39 [facility] [id number]) Occupational Therapy Current Condition Current Condition Evaluation Date 08/06/20 Treatment Diagnosis Acute TIA Diagnosis Onset Date 08/05/20 M3 OT- IP Subjective and Pain Start: 08/06/20 16:34 Freq: Status: Active Protocol: Document 08/06/20 08:50 [facility] (Rec: 08/06/20 16:39 [facility] [id number]) OT- Subjective Occupational Therapy Visit Type Type Initial Evaluation Visit Start Time 08:50 Visit Stop Time 09:42 Total Visit Minutes 52 Occupational Therapy Visit Comments Patient Comments Pt agreeable to do OT eval. Patient/Caregiver Goals TO go home. OT Pain Assessment Pain When Pain Assessed At Rest Pain Present Pain Present Denied Pain M4 OT- IP ADL's Start: 08/06/20 16:34 Freq: Status: Active Protocol: Document 08/06/20 08:50 [facility] (Rec: 08/06/20 16:39 [facility] [id number]) OT [id number] Comments OT Self-Feeding Comments Not at meal time. OT ADL-Grooming General Evaluation Grooming Ability Independent OT ADL-Oral Care General Eval Oral Care Ability Independent OT ADL-Dressing General Eval Lower Body Dressing Ability Standby Assistance OT ADL-Toileting General Evaluation Toileting Ability Standby Assistance OT ADL-Bathing Comments OT Bathing Comments not performed M5 OT- IP IADL's Start: 08/06/20 16:34 Freq: Status: Active Protocol: Document 08/06/20 08:50 [facility] (Rec: 08/06/20 16:39 [facility] [id number]) OT-Instrumental Activities of Daily Living Home Safety Awareness Awareness of Need for Assistance at Home Good Awareness Ability to Problem Solve Emergency Able to Problem Solve Situations Medication Management Medication Management Comments Pt having decreased STM, suggested for pt to have his provide supervision. Money Management Money Management Comments Pt having decreased STM, suggested for pt to have his provide supervision. M6 OT- IP Functional Cognition Start: 08/06/20 16:34 Freq: Status: Active Protocol: Document 08/06/20 08:50 [facility] (Rec: 08/06/20 16:57 [facility] [id number]) Cognitive Factors Limiting Selfcare Function Cognitive Ability Level of Alertness Alert Patient Orientation Name,Age,Birthday,Month,Date, Year,Day of Week,Place, Situation Attention Span Ability Capable of Focused Attention, Capable of Sustained Attention Ability to Follow Commands Able to Follow Multi-Step Commands Memory Description Short Term Impaired Safety Awareness No Deficits Noted Problem Solving Ability No deficits Noted Cognitive Tests SLUMS Pt scored 25/30 which implies mild cognitive deficits. Pt able to recall 3/5 words after time passed and able to answer 3/4 questions after paragraph read. Cognitive Comments Cognitive Assessment Comments Pt scored 111seconds on [employer] Part [employer] which implies mild to moderate deficits for visual attention, task switching, speed of processing , mental flexibility, and for executive thinking. Pt scored 50% for his age group. Pt needing increased time for math calculations and not able to figure out reading a chart to determine how he did for 9 hole peg test- Pt needing CORNELIUS to help figure it out. Suggested maybe best to hold off in going to work until thinking more clearly. OT- Vision and Hearing OT- Hearing Assessment OT- Hearing Assessment WFL OT- Vision Assessment Visual Acuity Glasses For Reading Vision Assessment Comments Decreased peripheral vision on the left. Pt's left eyelid tends to droop lower down which may also be affecting his vision. 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 M7 OT- IP Mobility and Balance Start: 08/06/20 16:34 Freq: Status: Active Protocol: Document 08/06/20 08:50 [facility] (Rec: 08/06/20 16:57 [id number] OT-Transfer Assessment Sit to and From Stand Sit to and from Stand Independent Transfers Transfer Ability Independent Technique Transfer Destination Bed,Chair,Toilet Transfer Technique Stand Step Pivot Devices Transfer Assistive Devices None Comments Mobility Comments Pt able to climb up onto the bench in front of the window and up to the window still to help simulate uneven surfaces. Pt needing to hold to the wall for his balance. OT- Gait Assessment Comments Gait Ability Comments Pt independent in the room. OT- Balance Assessment Sitting Balance and Reactions Static Sitting Balance Ability Normal Dynamic Sitting Balance Ability Normal Standing Balance and Reactions Static Standing Balance Ability Normal Dynamic Standing Balance Ability Good M8 OT- IP Objective Assessments Start: 08/06/20 16:34 Freq: Status: Active Protocol: Document 08/06/20 08:50 [facility] (Rec: 08/06/20 16:57 [facility] [id number]) OT Gross Range of Motion Upper Extremity Range of Motion Assessment Within Functional Limits OT Strength Upper Extremity Strength Assessment Within Functional Limits OT- Coordination Assessment Upper Extremity Finger to Nose Test Within Functional Limits Comments Coordination Comments Mild decreased coordination for left hand for in hand manipulation. Pt states has noticed that he tends to drop objects at work once in awhile . 9 hole peg right hand 23 seconds and left hand 25.5 seconds. OT-Muscle Tone Assessment Muscle Tone WNL Yes OT Sensation Assessment Comments Summary Comments Intact for sensation. Edema Edema Absent M9 OT- IP Assessment and Plan Start: 08/06/20 16:34 Freq: Status: Active Protocol: Document 08/06/20 08:50 [facility] (Rec: 08/06/20 16:57 [id number] OT Summary Assessment and Plan Potential Rehabilitation Potential Excellent Analytic Complexity at Evaluation Low Summary OT Impairments Balance,Coordination, Functional Cognition, Functional Mobility Assessment Summary Pt low complexity and here due to TIA and present with decreased FMS with left hand, left peripheral vision- however may be affected by his droopy left eye lid, pt having difficulty with higher level executive function. Pt looking to go home when medically stable. Suggested to pt to have his supervise him to make sure thinking better before returning to work and driving . Goals Bathing Goal Independent Shower Transfer Goal Independent Patient/Caregiver Education Goal Caregiver Independent Assisting Patient Days to Meet Goals 1 Frequency of Treatment Frequency Of Treatment Once a Day Treatment Plan OT Treatment Plan ADL Training,Functional Cognition Training,Functional Mobility,Patient/Family Education,Discharge Planning Other Treatment Recommendations and Next Shower if still here. FMS Treatment Focus activities. Discharge Recommendations OT Discharge Recommendations Home with Assistance Home Equipment Needs may benefit from a shower chair Transportation Needs at Discharge Private Vehicle
[2020-08-06] MEDS: ASPIRIN EC 81 MG TABLET PO (09:55)
[2020-08-06 09:56] VITALS: BP 151/101; PULSE 72
[2020-08-06] MEDS: ENOXAPARIN 40 MG/0.4 ML SYRINGE SUBCUT (09:56)
[2020-08-06] MEDS: LOSARTAN 50 MG TABLET PO (09:56)
[2020-08-06] MEDS: TAMSULOSIN 0.4 MG CAPSULE PO (09:56)
--- NOTE | 2020-08-06 10:35 | CM.DANOTE ---
DCP: Case received, EMR reviewed and met with patient. Introduced self and role. Was able to obtain information from patient regarding his baseline activity status prior to hospitalization. DCP assessment completed with information currently available. Patient is a 74 year old male who admitted yesterday afternoon to the care of the hospitalist team. PCP: Dr. Gutierrez. P[facility] Patient came to the [facility] via private vehicle secondary to some visual disturbances. Patient holds diagnosis of TIA. Met with patient, and also, during team rounds. Plan is for discharge home today. Dr. Adames will be going over his medications today before discharge. Patient is alert and oriented, independent at baseline. He has already worked with P.T. Patient's primary MD is in the [place]. Proved patient with phone number of [facility], for they are accepting new patients at this time. P: Patient is to be discharged home today. Cira Lira RN/Circulation Tender
--- NOTE | 2020-08-06 11:55 | PT-IP ANOTE ---
PT order received. Saw pt at 1120am and pt was coming out of his bathroom and completing self care in front of self care. Discussed with pt regarding his current mobility level. Pt reports he has no concern at this point d/t no weakness/ balance deficits/ sensation loss/ motor control loss. Agreed to d/c PT order.
[2020-08-06 12:00] VITALS: BP 150/98; PULSE 73; RESP 15; TEMP 36.6; O2SAT 100
--- NOTE | 2020-08-06 12:36 | PM.DS.1 ---
History of Present Illness History of Present Illness Date Patient Seen: 08/05/20 Chief complaint: Vision problems Narrative: Written by myself Dr. Adames: Gregory Colvin is a 74-year-old male with a past medical history significant for BPH, prostate cancer status post proton therapy, and popliteal aneurysm status post venous grafting who presented to the ED for vision changes. The patient reports he was driving to work and when he reached the security post who went to enter the security code on the newman pad was moving. He reports his head felt heavy in the front and back. He also reports dizziness and feeling off balance when he transferred from his vehicle to his company secretary is vehicle to be taken to the ED. He reports the symptoms lasted approximately 30 minutes. He has no previous history of CVA. He does reports a chemically induced IN due to ?asphyxiation? from inhaling diesel stove oil in a closed cabin overnight while in a remote area in [place] which was likely carbon monoxide poisoning. He was then later evaluated for coronary artery disease including cardiac stress test and echocardiogram which were reportedly normal by a dietary services director named Dr. Gvairia at [facility]. The patient currently has no complaints and denies headache, vision changes, lightheadedness or dizziness, chest pain, shortness of breath, cough, abdominal pain, nausea, vomiting, fever, chills, dysuria, diarrhea or constipation. The patient is admitted observation for CVA rule out. ED course: Vital signs: Temperature 97.9? F, BP 121/71, HR 78, RR 14, SpO2 98% on room air. CT brain without contrast did not demonstrate any acute intracranial abnormalities and CTA head and neck did not demonstrate any acute intracranial process or hemodynamically significant stenosis. NIH score 0. Electrolytes within normal limits. EKG demonstrated sinus rhythm without acute ischemic changes such as ST elevation or depression. Troponin negative. Patient takes high doses of aspirin 1000 mg twice daily therefore VBG was done to assess for salicylate toxicity which was normal and salicylate level was 1.0. COVID-19 negative. Discharge Providers Provider Date of admission: 08/05/20 13:07 Discharge Date: 08/06/20 Consults: 08/05/20 16:02 Consult to Discharge Planning Routine Comment: Consult to Occupational Therapy Evaluate & Treat Comment: Physician Instructions: Evaluate and treat Consult to Physical Therapy Evaluate & Treat Comment: Physician Instructions: Evaluate and Treat Discharge provider: Jayashree Adames DO Summary Hospital Course Discharge Diagnosis: 1. Acute TIA, present on admission. Resolved. 2. Elevated blood pressure without previous diagnosis of hypertension, present on admission. Stable. 3. Hyperlipidemia, chronic, present on admission. Stable. 4. History of obstructive sleep apnea not on CPAP, chronic, present on admission. Stable. 5. BPH with LUTS and history of prostate cancer status post proton therapy, chronic, present on admission. Presumed stable. Hospital Course: Gregory Colvin is a 74-year-old male with a past medical history significant for BPH, prostate cancer status post proton therapy, and popliteal aneurysm status post venous grafting who presented to the ED for vision changes. 1. Acute TIA, present on admission. Resolved. -Patient presented with vision changes with associated heaviness and front and back of head, imbalance, and dizziness with symptoms resolving in the ED. -Cardiovascular risk factors include: Former smoker, family history, and hyperlipidemia. -Initial NIH 0. Continued to monitor neurological status frequently. -CT brain without contrast did not demonstrate any acute intracranial abnormalities. -CTA head and neck did not demonstrate any acute intracranial abnormalities or significant hemodynamic stenosis in head and neck arteries. -MR stroke protocol demonstrated age-appropriate volume loss and minimal small vessel ischemic change. No evidence of acute stroke, hemorrhage, or mass. No evidence of stenosis, occlusion, or aneurysm in head or neck arteries. -EKG demonstrated normal sinus rhythm with first-degree AV block. Continued to monitor closely on telemetry. Patient remained in sinus rhythm sinus bradycardia throughout entire hospitalization without significant ectopy. -Allowed for permissive hypertension x 24 hours. Started losartan 50 mg daily for mildly elevated high blood pressure with average SBP 140-150s mmHg. Ordered labetalol 10 mg IV every 4 hours as needed for SBP > 220 mmHg or DBP >110 mmHg and HR > 60 bpm or Hydralazine 10 mg every 6 hours for SBP > 220 mmHg or DBP >110 mmHg. -Risk stratified with hemoglobin A1c which was normal at 5.3% and fasting lipid panel which demonstrated poor lipid control with: Total cholesterol 218, triglycerides 175, LDL 125 (goal < 100) and HDL 58. -Continued aspirin 81 mg daily (counseled patient on excessive aspirin intake and discouraged use due to risk of aspirin overdose, kidney disease and GI complications) and added atorvastatin 40 mg daily at bedtime for stroke prophylaxis. -Recommended referral to Ophthalmology to assess vision per PCP. 2. Elevated blood pressure without previous diagnosis of hypertension, present on admission. Stable. -Allowed for permissive hypertension x 24 hours. Ordered labetalol 10 mg IV every 4 hours as needed for SBP > 220 mmHg or DBP >110 mmHg and HR > 60 bpm or Hydralazine 10 mg every 6 hours for SBP > 220 mmHg or DBP >110 mmHg. -Started losartan 50 mg daily for mildly elevated high blood pressure with average SBP 140-150s mmHg after 24 hours. Recommended heart healthy low sodium diet and lifestyle modification including diet and exercise. 3. Hyperlipidemia, chronic, present on admission. Stable. -Patient reports intolerance to statin in the past but does not remember side effect. -Started and continued atorvastatin 40 mg daily at bedtime to treat hyperlipidemia and prevent stroke, as well as, aspirin 81 mg daily. -Discussed side effect of myopathy due to statin therapy. Instructed patient to monitor closely for widespread myalgias, discontinue statin use if this occurs and have a CPK level checked per PCP. 4. History of obstructive sleep apnea not on CPAP, chronic, present on admission. Stable. -Patient reports history of sleep apnea and trial of CPAP which he did not tolerate. -Recommended repeat sleep study and repeat trial of CPAP now that new appliances are available as this may be more tolerable per PCP. 5. BPH with LUTS and history of prostate cancer status post proton therapy, chronic, present on admission. Presumed stable. -Patient is status post proton therapy and receives yearly Lupron injection if PSA is elevated. Patient complains of frequent urination that has been affecting his quality of life. -Continue home tamsulosin 0.4 mg twice daily. -Continue outpatient follow-up with Urology. Patient would like to obtain a local urologist and referred him to Dr. Barbosa at [facility]. Exam Vital Signs (past 8 hours): - 08/06/20 07:00 08/06/20 08:00 08/06/20 09:56 Temperature 97.6 F Pulse Rate 72 72 Respiratory Rate 15 Blood Pressure 151/101 H 151/101 H Pulse Oximetry 98 100 08/06/20 12:00 Temperature 98 F Pulse Rate 73 Respiratory Rate 15 Blood Pressure 150/98 H Pulse Oximetry 100 Oxygen Delivery Method Room Air Oxygen Flow Rate 0 Narrative Exam Narrative: General: Older male sitting in bed and in no acute distress, well-developed, well-nourished, appropriately interactive. HEENT: Normocephalic, atraumatic. External ears without defect. Pupils equal, round, and reactive to light and accommodation. Anicteric sclerae, moist conjunctivae, and no lid lag. Oropharynx free of erythema and cobble stoning with moist mucosa. Neck: Supple with full range of motion. No jugular venous distension. No bruits. No lymphadenopathy or thyromegaly. Cardiovascular: Regular rate and rhythm without murmurs, rubs, or gallops appreciated. Pulmonary: Clear to auscultation bilaterally without crackles, wheezes, or rhonchi. Normal respiratory effort with no use of accessory muscles. Abdomen: Soft, bowel sounds present, nontender, nondistended. No hepatosplenomegaly or masses appreciated. Extremities: No clubbing, cyanosis, or edema. Skin: Normal temperature, turgor, and texture; no rash, ulcers, or subcutaneous nodules appreciated. Neurological: Cranial nerves grossly intact. No slurred speech or facial droop. Normal muscle strength, tone, and bulk. Reflexes, coordination, and sensory function within normal limits. No known gait impairment. Psychiatric: Normal mood and affect. Alert and oriented to person, place, and time. Objective Labs Result Diagrams: 08/05/20 11:07 08/05/20 11:07 Labs: Laboratory Results - last 24 hr 08/05/20 08/05/20 08/05/20 11:07 11:07 11:07 Hemoglobin A1c 5.3 Triglycerides 175 H Cholesterol 218 H LDL Cholesterol, Calc 125 H HDL Cholesterol 58 TSH 1.83 Salicylates U Opiates 300ng/mL cut Ur Oxycodone Screen Urine Methadone Screen Ur Barbiturates Screen U Tricyclic Antidepress Ur Phencyclidine Scrn Ur Amphetamines Screen U Methamphetamines Scrn Ur MDMA Scrn (Ecstasy) U Benzodiazepines Scrn Urine Cocaine Screen U Marijuana (THC) Screen COVID-19 PCR 08/05/20 08/05/20 08/06/20 12:10 12:34 08:21 Hemoglobin A1c Triglycerides Cholesterol LDL Cholesterol, Calc HDL Cholesterol TSH Salicylates < 1.0 U Opiates 300ng/mL cut Negative Ur Oxycodone Screen Negative Urine Methadone Screen Negative Ur Barbiturates Screen Negative U Tricyclic Antidepress Negative Ur Phencyclidine Scrn Negative Ur Amphetamines Screen Negative U Methamphetamines Scrn Negative Ur MDMA Scrn (Ecstasy) Negative U Benzodiazepines Scrn Negative Urine Cocaine Screen Negative U Marijuana (THC) Screen Negative COVID-19 PCR Negative Discharge Plan Discharge Plan Patient Disposition: Home Nursing Discharge Comment: You are being discharged home. You did not have a stroke. You possibly had a TIA (transient ischemic attack or mini-stroke) versus a vision issue. Highly recommend you have your eyes examined by an opthamologist to assure that this is not an eye issue. Your cholesterol was elevated and you have been prescribed atorvastatin 40 mg daily at bedtime. Please stop this medication if you begin having full body muscle aches (called myopathy) and have a blood test to make sure that your muscles are not being damaged. Continue taking aspirin ONLY 81 mg daily in addition to atorvastatin to prevent heart attack and stroke. Higher doses of aspirin or other NSAIDs such as ibuprofen, naproxen, etc. are likely to cause complications such is GI bleeding, GI ulcerations, perforation of your GI tract, kidney injury or disease, and aspirin toxicity. You have been prescribed losartan 50 mg daily to treat high blood pressure. Please monitor your blood pressure in the log (2 measurements in the morning and 2 measurements in the evening by 10 minutes apart) using correct blood pressure measurement technique (sitting in a chair with your back supported, feet planted flat on the floor, blood pressure cuff at the level of your heart, with your arm resting on a hard surface) and take this log to all your doctor's appointments. Highly recommend repeat sleep study to assess for obstructive sleep apnea and treatment if present (many of the new appliances are more comfortable and better tolerated). Please continue to follow-up with urologist or you may consider establishing care with a local urologist Dr. Barbosa at [facility]. Please establish care with a primary care physician in the community to continue your medical treatment and preventative care. Discharge orders & Medications Prescriptions: New losartan 50 mg Tablet 50 mg PO DAILY Qty: 30 RF: 0 atorvastatin [Lipitor] 20 mg Tablet 40 mg PO BEDTIME Qty: 30 RF: 0 aspirin 81 mg Tablet,Delayed Release (Dr/Ec) 81 mg PO DAILY Qty: 30 RF: 0 Continued LEUPROLIDE ACETATE (#LUPRON) 5 mg SC USEASDIRECTD Qty: 0 RF: 0 tamsulosin 0.4 mg capsule 0.4 mg PO BID RF: 0 Discontinued Chen Advanced 500 MG tablet 1,000 mg PO BID Qty: 0 RF: 0 Diet/Activity/Treatments Diet: Low-fat, Low-sodium and Low-cholesterol Activity: Activity as tolerated Visit Report/Discharge Packet Instructions: The Mediterranean Diet and Good Health, The DASH Diet, DI for Transient Ischemic Attack, Atorvastatin, DI for Visual Field Disturbances, Mediterranean Diet May Reduce the Risk of Stroke in People with High Risk o Visit Report Forms: Patient Portal/API, Stroke Signs & Symptoms Discharge Data Attending Provider: Jayashree Adames Admit Date/Time: 08/05/20 13:07 Discharges patient from system. Discharge Date/Time: 08/06/20 13:59 Quality VTE Deep Vein Thrombosis/Pulmonary Embolism Present on Admission: No
--- NOTE | 2020-08-06 13:52 | PC.NURSE ---
Patient educated about Mediterranean and DASH diet, new medications, TIA, falls, s/s of stroke. Patient verbalized understanding of discharge teaching. Patient left facility w/ family via private vehicle, and wheeled to car via [employer]. Patient to follow up and find primary care doctor in town.
== END 2020-08-06 13:59 | disposition home or self-care (01) ==
LOC: ED 11:06 → AC 13:08
PROVIDERS: Admitting Provider Internal Medicine; Emergency Provider Emergency Medicine; Referring Provider Emergency Medicine; Visit Provider Internal Medicine
DX: G45.9 Transient cerebral ischemic attack, unspecified (principal); R29.818 Other symptoms and signs involving the nervous system; Z85.46 Personal history of malignant neoplasm of prostate; R03.0 Elevated blood-pressure reading, without diagnosis of hypertension; E78.5 Hyperlipidemia, unspecified; G47.33 Obstructive sleep apnea (adult) (pediatric); N40.1 Benign prostatic hyperplasia with lower urinary tract symptoms; Z11.59 Encounter for screening for other viral diseases
CPT/HCPCS: 36415; 70450; 70496; 70498; 70548; 70553; 80048; 80061; 80305; 80329; 81003; 82550; 82805; 82962; 83036; 84443; 84484; 85025; 85610; 85730; 87635; 93005; 93010; 96361; 96372; 96374; 97165; 97530; 99285; G0378; A9579; G0480; J1650; J2060; Q9967

== ENCOUNTER → 2020-10-16 14:37 | Outpatient (CLI) | payer MEDICARE, OTHER, SELFPAY ==
[2020-08-05 16:11] VITALS: BMI 28.9
[2020-10-16 16:42] LABS: Prostate Specific Antigen 2.56 ng/mL (0.10-4.00)
== END ==
PROVIDERS: Referring Provider Physician Assistant Medical; Visit Provider Physician Assistant Medical
DX: Z85.46 Personal history of malignant neoplasm of prostate (principal)
CPT/HCPCS: 36415; 84153

== ENCOUNTER → 2021-02-27 07:41 | Outpatient (CLI) | payer MEDICARE, OTHER, SELFPAY ==
[2020-12-18 09:38] VITALS: BMI 28.9
[2021-02-27 08:34] LABS: Cholesterol 171 mg/dL (140-199); HDL Cholesterol 63 mg/dL (40-60); LDL Cholesterol Calculated 94 mg/dL (<100); Triglycerides 70 mg/dL (35-150)
[2021-03-05 12:42] LABS: Percent Free Testosterone 1.64 % (1.50-4.20); Testosterone Free 0.11 ng/dL (5.00-21.00); Testosterone Total 6.8 ng/dL (264.0-916.0)
== END ==
PROVIDERS: Specialist; Referring Provider Nuclear Medicine Nuclear Cardiology; Visit Provider Nuclear Medicine Nuclear Cardiology
DX: C61 Malignant neoplasm of prostate (principal); E78.49 Other hyperlipidemia; Z86.73 Personal history of transient ischemic attack (TIA), and cerebral infarction without residual deficits; N40.0 Benign prostatic hyperplasia without lower urinary tract symptoms
CPT/HCPCS: 36415; 80061; 84153; 84402; 84403

== ENCOUNTER 2021-03-16 15:56 | Emergency (ER) | payer MEDICARE, OTHER, SELFPAY ==
[2020-12-18 09:38] VITALS: BMI 28.9
[2021-03-16 16:02] VITALS: BP 209/120; PULSE 99; RESP 18; TEMP 36.1; O2SAT 98; BMI 28.0
--- NOTE | 2021-03-16 17:26 | PC.NURSE ---
returned 960ml clear yellow urine. Patient verbalized relief within seconds of placing catheter. achored to left thigh.
[2021-03-16 17:38] LABS: Bacteria Urine None Seen; RBC Urine None Seen (0-5/HPF); WBC Urine None Seen (0-5/HPF)
[2021-03-16 18:03] LABS: Appearance Urine UA CLEAR; Bilirubin Urine UA NEGATIVE (NEGATIVE); Color Urine UA YELLOW; Glucose Urine UA NEGATIVE (Negative); Ketones Urine UA NEGATIVE (NEGATIVE); Leukocyte Esterase Urine UA NEGATIVE (NEGATIVE); Nitrite Urine UA NEGATIVE (Negative); Occult Blood Urine UA TRACE-LYSED (Negative); Protein Urine UA NEGATIVE (Negative); Urobilinogen Urine UA 0.2 E.U./dL (0.2)
--- NOTE | 2021-03-16 18:07 | ED_ITS ---
HPI - Male Genitourinary <JENELLE Goode - Last Filed: 03/16/21 18:50> General Chief complaint: Urogenital-Male Stated complaint: Can't Urinate Time Seen by Provider: 03/16/21 16:12 Source: patient Mode of arrival: Family Vehicle Limitations: no limitations History of Present Illness HPI Narrative: The patient is a 75-year-old male former smoker with history of prostate CA who presents with his for chief complaint of inability to urinate. This started for 5 hours ago. They were driving on the way from [facility] and had to stop many times so he could attempt to urinate, but was always on successful. He complains of bladder pressure. He states he has not had this issue in a while, but things have been getting worse so he has an appointment with Dr. Barbosa in a few days. Denies any fevers muscle aches or chills. Does complain of some pain upon urination, but he is not sure if it is because it is so hard to try to urinate. Does not have a primary care provider in the area. Related Data Home Medications Medication Instructions Recorded Confirmed LEUPROLIDE ACETATE (#LUPRON) 5 mg SC USEASDIRECTD #0 09/17/11 03/17/21 tamsulosin 0.4 mg PO BID 08/05/20 03/17/21 Previous Rx's Medication Instructions Recorded aspirin 81 mg PO DAILY #30 tab 08/06/20 atorvastatin [Lipitor] 40 mg PO BEDTIME #30 tab 08/06/20 losartan 50 mg PO DAILY #30 tab 08/06/20 benzonatate 100 mg capsule 100 mg PO TID PRN 7 Days #21 cap 03/17/21 Allergies Allergy/AdvReac Type Severity Reaction Status Date / Time No Known Drug Allergies Allergy Verified 03/17/21 09:53 Review of Systems <JENELLE Goode - Last Filed: 03/16/21 18:50> Review of Systems Narrative: GENERAL: Denies chills, fatigue, malaise, fever, sweats. HEENT: Denies sinus pain, ear pain, sore throat, difficulty swallowing, dizziness. RESPIRATORY: Denies dyspnea, cough, wheezing, hemoptysis, sputum. CARDIOVASCULAR: Denies chest pain, palpitations, orthopnea, edema, GASTROINTESTINAL: Denies nausea, vomiting, abdominal pain, diarrhea, constipation, melena. : See HPI MUSCULOSKELETAL: denies weakness, joint pain, or bony pain SKIN: Denies rash, skin lesions, or other NEUROLOGIC: Denies weakness, headache, numbness, change in speech, confusion, seizures, incoordination. PSYCHIATRIC: No concerning psychosocial issues. 12 point review of systems is negative except for those stated above Patient History <JENELLE Goode - Last Filed: 03/16/21 18:50> Medical History BPH (benign prostatic hyperplasia) Lower urinary tract symptoms (LUTS) Popliteal aneurysm Prostate cancer Prostate cancer Surgical History H/O cataract removal with insertion of prosthetic lens H/O hernia repair History of appendectomy S/P aneurysm repair Family History Mother Uterine cancer Father CVA (cerebral vascular accident) Brother Heart attack Social History marital status: number of children: 1 household members: spouse Smoking Status: Former smoker Tobacco: How many years used: 6 alcohol intake: current caffeine: Yes Smoking Status: Former smoker alcohol intake frequency: 0-2 drinks per day Substance Use Type: does not use Exam <JENELLE Goode - Last Filed: 03/16/21 18:50> Narrative Exam Narrative: GENERAL: This is a well-nourished, well-developed patient, in appears uncomfortable HEAD: Atraumatic. Normocephalic. No temporal or scalp tenderness. EYES: Pupils equal round and reactive. Extraocular motions intact. No scleral icterus. No injection or drainage. ENT: Nose without bleeding, purulent drainage or septal hematoma. Wearing a mask. Airway patent. NECK: Trachea midline. No JVD or lymphadenopathy. Supple, nontender, no meningeal signs. CARDIOVASCULAR: Regular rate and rhythm RESPIRATORY: Clear to auscultation. Breath sounds equal bilaterally. No wheezes, rales, or rhonchi. No cough. No increased respiratory effort. No accessory muscle use. GASTROINTESTINAL: Abdomen soft, non-tender, nondistended. No hepato- splenomegaly, or palpable masses. No guarding. Tam catheter draining clear yellow urine. NEURO: AOx3. SKIN: No rash or erythema on visible skin Initial Vital Signs Initial Vital Signs: Vital Signs Temperature 96.9 F L 03/16/21 16:02 Pulse Rate 99 H 03/16/21 16:02 Respiratory Rate 18 03/16/21 16:02 Blood Pressure 209/120 H 03/16/21 16:02 Pulse Oximetry 98 03/16/21 16:02 <Maryuri Dutta DO - Last Filed: 03/20/21 07:45> Initial Vital Signs Initial Vital Signs: Vital Signs Temperature 96.9 F L 03/16/21 16:02 Pulse Rate 99 H 03/16/21 16:02 Respiratory Rate 18 03/16/21 16:02 Blood Pressure 209/120 H 03/16/21 16:02 Pulse Oximetry 98 03/16/21 16:02 Scores <JENELLE Goode - Last Filed: 03/16/21 18:50> GCS Sarah coma scale eye opening: Spontaneous Duarte coma scale verbal response: Orientated Sarah coma scale motor response: Obey commands Duarte coma scale total score: 15 Course <JENELLE Goode - Last Filed: 03/16/21 18:50> Orders Ordered: ED Orders 03/16/21 17:10 Urinalysis and Microscopic Stat Vital Signs Vital signs: Vital Signs - 8 hr 03/16/21 16:02 Temperature 96.9 F L Pulse Rate 99 H Respiratory Rate 18 Blood Pressure 209/120 H Pulse Oximetry 98 <Maryuri Dutta DO - Last Filed: 03/20/21 07:45> Orders Ordered: ED Orders 03/16/21 17:10 Urinalysis and Microscopic Stat Vital Signs Vital signs: Vital Signs - 8 hr 03/16/21 16:02 Temperature 96.9 F L Pulse Rate 99 H Respiratory Rate 18 Blood Pressure 209/120 H Pulse Oximetry 98 MDM - Male Genitourinary <JENELLE Goode - Last Filed: 03/16/21 18:50> Lab Data Attestation: I reviewed the patient's lab results. Labs: Lab Results 03/16/21 Range/Units 17:10 Urine Color Yellow Urine Appearance Clear Urine pH 6.0 (4.5-8.0) Ur Specific Polaris 1.010 (1.000-1.035) Urine Protein Negative (Negative) Urine Glucose (UA) Negative (Negative) g/dL Urine Ketones Negative (NEGATIVE) Urine Occult Blood Trace-lysed (Negative) Urine Nitrate Negative (Negative) Urine Bilirubin Negative (NEGATIVE) Urine Urobilinogen 0.2 (0.2) E.U./dL Ur Leukocyte Esterase Negative (NEGATIVE) Urine RBC None seen (0-5/HPF) Urine WBC None seen (0-5/HPF) Urine Bacteria None seen (None) Ur Culture Indicated? Cult not indicated MDM Narrative Medical decision making narrative: The patient is a 75-year-old Male presents with a chief complaint of urinary retention. His initial bladder scan showed about 700 cc, so Tam catheter was inserted and the patient felt much improved. Urine shows no signs of infection. Discussed at length keeping the Tam catheter clean, keeping it in place until he follows up with either a primary care provider or Dr. Barbosa in a few days. Discussed coming back to the ER for acute concerns. Patient have no questions or concerns upon discharge states understanding return precautions as well as follow-up care. <Maryuri Dutta, DO - Last Filed: 03/20/21 07:45> Lab Data Labs: Lab Results 03/16/21 Range/Units 17:10 Urine Color Yellow Urine Appearance Clear Urine pH 6.0 (4.5-8.0) Ur Specific Polaris 1.010 (1.000-1.035) Urine Protein Negative (Negative) Urine Glucose (UA) Negative (Negative) g/dL Urine Ketones Negative (NEGATIVE) Urine Occult Blood Trace-lysed (Negative) Urine Nitrate Negative (Negative) Urine Bilirubin Negative (NEGATIVE) Urine Urobilinogen 0.2 (0.2) E.U./dL Ur Leukocyte Esterase Negative (NEGATIVE) Urine RBC None seen (0-5/HPF) Urine WBC None seen (0-5/HPF) Urine Bacteria None seen (None) Ur Culture Indicated? Cult not indicated Discharge Plan Departure Patient Disposition: Home Clinical Impression: Acute retention of urine Instructions: How to Care for Your Tam Catheter -- Male, DI for High Blood Pressure, DI for Urinary Retention in Men Activity Restrictions/Additional Instructions: Thank you for trusting us with your care today. We inserted a Tam catheter to help drain your bladder. Please keep this clean. I have included a packet on how to take care of it. Please come back to the emergency department for any acute concerns such as Tam catheter not working, pain with fever etcetera Please follow-up with primary care provider. I have given you contact information the [facility] special education resource room teacher, who can help you identify a PCP accepting new patients. Please follow-up with your urologist as planned. We also noticed that your blood pressure is elevated. Please follow-up with primary care provider regarding this for a recheck. Please come back to the emergency department for any acute concerns such as concern of heart attack stroke Prescriptions: No Action benzonatate [Tessalon Perles] 100 mg capsule 100 mg PO TID PRN (Reason: cough) 7 Days Qty: 21 RF: 0 LEUPROLIDE ACETATE (#LUPRON) 5 mg SC USEASDIRECTD Qty: 0 RF: 0 tamsulosin 0.4 mg capsule 0.4 mg PO BID RF: 0 losartan 50 mg Tablet 50 mg PO DAILY Qty: 30 RF: 0 atorvastatin [Lipitor] 20 mg Tablet 40 mg PO BEDTIME Qty: 30 RF: 0 aspirin 81 mg Tablet,Delayed Release (Dr/Ec) 81 mg PO DAILY Qty: 30 RF: 0 Referrals: [facility] [Outside] Consuelo Barbosa MD [Physician] - Miscellaneous,MD Lissette [Primary Care Provider] - <Maryuri Dutta DO - Last Filed: 03/20/21 07:45> [facility] Attestation: I was immediately available in the department for consultation. Documentation has been reviewed. I agree with assessment and plan.
[2021-03-16 18:15] LABS: Culture Indicated Urine Cult Not Indicated
[2021-03-16 18:49] VITALS: BP 202/95; PULSE 72; RESP 16; O2SAT 97
--- NOTE | 2021-03-16 18:53 | PC.NURSE ---
Patient verbalized understanding of catheter care teaching. Switched to a leg bag. 900ml total output from catheter.
== END 2021-03-16 18:56 | disposition home or self-care (01) ==
PROVIDERS: Emergency Provider Nurse Practitioner Family
DX: R33.8 Other retention of urine (principal)
CPT/HCPCS: 51798; 81001; 99283

== ENCOUNTER → 2021-03-17 09:55 | Outpatient (CLI) | payer MEDICARE, OTHER, SELFPAY ==
[2020-12-18 09:38] VITALS: BMI 28.9
[2021-03-17 10:27] LABS: COVID19 -Nasal RAPID Negative (Negative)
== END ==
PROVIDERS: Visit Provider Student in an Organized Health Care Education/Training Program
DX: Z20.822 Contact with and (suspected) exposure to COVID-19 (principal)
CPT/HCPCS: 87635

== ENCOUNTER → 2021-03-20 12:20 | Outpatient (CLI) | payer MEDICARE, OTHER, SELFPAY ==
[2020-12-18 09:38] VITALS: BMI 28.9
== END ==
PROVIDERS: Referring Provider Specialist; Visit Provider Specialist
DX: C61 Malignant neoplasm of prostate; M85.851 Other specified disorders of bone density and structure, right thigh
CPT/HCPCS: 77080

== ENCOUNTER 2021-03-20 15:13 | Emergency (ER) | payer MEDICARE, OTHER, SELFPAY ==
[2020-12-18 09:38] VITALS: BMI 28.9
[2021-03-20 15:20] VITALS: BP 153/76; PULSE 78; RESP 12; TEMP 36.8; O2SAT 99
--- NOTE | 2021-03-20 15:20 | ED.MALEGU ---
HPI - Male Genitourinary General Stated complaint: TORE OUT CATH BLEEDING Time Seen by Provider: 03/20/21 15:18 Source: patient Mode of arrival: Ambulatory Limitations: no limitations History of Present Illness HPI Narrative: 75-year-old male former smoker with history of hyperlipidemia, hypertension, enlarged prostate and urinary retention presents with a chief complaint of a Arita catheter problem. He states he bumped his leg and broke the plastic clip on the attachment device for his Arita and it talked a bit on the catheter and he has got a small amount of dried blood around the catheter. There is very minimal pink tinge to the urine. He is having no pain is not dizzy, weak or lightheaded and only wants to replace the plastic clip. He does not take a blood thinner has no fever chills and is otherwise well MD Complaint: other Onset (ago): minute(s) Duration: constant Location: penis Severity: mild Quality: aching Relieving factors: none Associated symptoms: Reports denies other symptoms Related Data Home Medications Medication Instructions Recorded Confirmed LEUPROLIDE ACETATE (#LUPRON) 5 mg SC USEASDIRECTD #0 09/17/11 03/17/21 tamsulosin 0.4 mg PO BID 08/05/20 03/17/21 Previous Rx's Medication Instructions Recorded aspirin 81 mg PO DAILY #30 tab 08/06/20 atorvastatin [Lipitor] 40 mg PO BEDTIME #30 tab 08/06/20 losartan 50 mg PO DAILY #30 tab 08/06/20 benzonatate 100 mg capsule 100 mg PO TID PRN 7 Days #21 cap 03/17/21 Allergies Allergy/AdvReac Type Severity Reaction Status Date / Time No Known Drug Allergies Allergy Verified 03/17/21 09:53 Review of Systems Constitutional Constitutional: Denies body ache(s), Denies chills and Denies fever(s) Cardiovascular Cardiovascular: Denies chest pain, Denies syncope, Denies dyspnea and Denies dyspnea on exertion Respiratory Respiratory: Denies dyspnea and Denies dyspnea on exertion Gastrointestinal Gastrointestinal: Denies abdominal pain and Denies vomiting Genitourinary Comments: see HPI Neurologic Neurologic: Denies syncope and Denies sensory deficit Patient History Medical History BPH (benign prostatic hyperplasia) Lower urinary tract symptoms (LUTS) Popliteal aneurysm Prostate cancer Prostate cancer Surgical History H/O cataract removal with insertion of prosthetic lens H/O hernia repair History of appendectomy S/P aneurysm repair Family History Mother Uterine cancer Father CVA (cerebral vascular accident) Brother Heart attack Social History marital status: number of children: 1 household members: spouse Smoking Status: Former smoker Tobacco: How many years used: 6 alcohol intake: current caffeine: Yes Smoking Status: Former smoker alcohol intake frequency: 0-2 drinks per day Substance Use Type: does not use Exam Narrative Exam Narrative: GEN: AOx3 and in mild distress EYES: Pupils are equal, round, and reactive to light and accommodation. Extraoccular muscles are intact bilaterally. There is no subconjunctival hemorrhage or exudate. CHEST: Lungs are clear to auscultation bilaterally and free of wheezes, rales, or rhonchi. Heart rate is regular rhythm, there are no murmurs, clicks, rubs, or gallops. There is no chest wall tenderness. ABD: Abdomen is soft and nontender. There is no guarding or rebound. Bowel sounds are normal in all 4 quadrants. There is no mass or organomegaly. : small amount of dried blood at external meatus, no pain, pinkish tinge to urine in bag, no gross blood. Plastic clip for attachment device on thigh has cracked, easily replaced by nursing EXT: Full painless ROM of all extremities with no loss of sensation or strength. SKIN: Warm, pink, and dry. No erythema or rash Discharge Plan Departure Patient Disposition: Home Clinical Impression: Problem with Arita catheter Qualifiers: Encounter type: initial encounter Qualified Code(s): T83.9XXA - Unspecified complication of genitourinary prosthetic device, implant and graft, initial encounter Instructions: How to Care for Your Arita Catheter -- Male Activity Restrictions/Additional Instructions: *You have been diagnosed with [arita catheter problem ] *What to do: *Please continue to take your regular medications as directed. [ ] New medication prescriptions sent to your pharmacy: [ ] [ ] New medication written as a paper prescription [x ] No new medications given *Please follow up with your primary care provider in 2-3 days, call for an appointment. Let them know you were seen in the Emergency Department and that we ask that you be seen in follow up. We will electronically transmit a record of today's note if your PCP is in our system *If you do not have a primary care provider please contact the [facility] Resource line at [phone]. They will ask some questions about your medical history and help get you set up with a doctor in the community. *Return to Emergency Department if you should have any new, worsening or concerning symptoms, such as [fever greater than 101 F, shaking chills, worsening pain, persistent vomiting, increased bleeding around the tube or in the bag or other bothersome symptoms] Prescriptions: No Action benzonatate [Tessalon Perles] 100 mg capsule 100 mg PO TID PRN (Reason: cough) 7 Days Qty: 21 RF: 0 LEUPROLIDE ACETATE (#LUPRON) 5 mg SC USEASDIRECTD Qty: 0 RF: 0 tamsulosin 0.4 mg capsule 0.4 mg PO BID RF: 0 losartan 50 mg Tablet 50 mg PO DAILY Qty: 30 RF: 0 atorvastatin [Lipitor] 20 mg Tablet 40 mg PO BEDTIME Qty: 30 RF: 0 aspirin 81 mg Tablet,Delayed Release (Dr/Ec) 81 mg PO DAILY Qty: 30 RF: 0 Referrals: Miscellaneous,Doctor, [Non-Staff] -
--- NOTE | 2021-03-20 15:23 | PC.NURSE ---
New device to secure arita to leg applied to patient.
== END 2021-03-20 15:24 | disposition home or self-care (01) ==
LOC: ED 15:21
PROVIDERS: Emergency Provider Emergency Medicine
DX: T83.028A Displacement of other urinary catheter, initial encounter (principal); C61 Malignant neoplasm of prostate; M85.851 Other specified disorders of bone density and structure, right thigh
CPT/HCPCS: 77080; 99281

== ENCOUNTER 2021-03-22 09:51 | Emergency (ER) | payer MEDICARE, OTHER, SELFPAY ==
[2020-12-18 09:38] VITALS: BMI 28.9
[2021-03-22 09:52] VITALS: BP 151/77; PULSE 89; RESP 14; TEMP 36.6; O2SAT 99
--- NOTE | 2021-03-22 10:16 | ED.MALEGU ---
HPI - Male Genitourinary General Chief complaint: Urogenital-Male Stated complaint: Catheter issues Time Seen by Provider: 03/22/21 09:52 Source: patient Mode of arrival: Ambulatory Limitations: no limitations History of Present Illness HPI Narrative: 75-year-old male former smoker with history of hyperlipidemia, hypertension, enlarged prostate and urinary retention returns with a chief complaint of a Arita catheter problem. He was seen a few days ago after he had bumped his catheter and disrupted some of the external hardware and developed a small amount of bleeding at the external meatus. He is not dizzy nor weak or lightheaded. He denies any chest pain or shortness of breath. He denies any abdominal pain, fever or chills. He states that his leg bag a sliding down his leg, the catheter is frequently kinking often he occasionally has a small amount of blood in with his urine but no passage of clots. MD Complaint: other Onset (ago): day(s) Duration: constant Location: penis Severity: mild Relieving factors: none Exacerbating factors: none Associated symptoms: Reports denies other symptoms Related Data Home Medications Medication Instructions Recorded Confirmed tamsulosin 0.4 mg PO BID 08/05/20 03/22/21 aspirin 500 mg PO BID 03/22/21 03/22/21 leuprolide (3 month) [Lupron Depot 11.25 mg IM [id number] 03/22/21 03/22/21 (3 month)] Previous Rx's Medication Instructions Recorded atorvastatin [Lipitor] 40 mg PO BEDTIME #30 tab 08/06/20 losartan 50 mg PO DAILY #30 tab 08/06/20 benzonatate 100 mg capsule 100 mg PO TID PRN 7 Days #21 cap 03/17/21 Allergies Allergy/AdvReac Type Severity Reaction Status Date / Time No Known Drug Allergies Allergy Verified 03/17/21 09:53 Review of Systems Constitutional Constitutional: Denies chills, Denies fatigue, Denies fever(s), Denies frequent falls, Denies lethargy and Denies weakness Eyes Eyes: Denies change in vision, Denies eye discharge, Denies irritation and Denies loss of vision ENT Ears, Nose, Mouth, and Throat: Denies change in voice, Denies dizziness, Denies neck pain, Denies sore throat and Denies throat swelling Cardiovascular Cardiovascular: Denies chest pain, Denies irregular heart rhythm, Denies lightheadedness, Denies palpitations, Denies dyspnea, Denies dyspnea on exertion and Denies orthopnea Respiratory Respiratory: Denies cough, Denies dyspnea, Denies dyspnea on exertion and Denies wheezing Gastrointestinal Gastrointestinal: Denies abdominal pain, Denies change in bowel habits, Denies diarrhea, Denies nausea and Denies vomiting Musculoskeletal Musculoskeletal: Denies neck pain and Denies numbness Integumentary/Breasts Skin/Breast: Denies pruritus, Denies erythema, Denies rash and Denies wounds Neurologic Neurologic: Denies behavioral changes, Denies confusion, Denies dizziness, Denies frequent falls, Denies loss of vision, Denies numbness and Denies weakness Psychiatric Psychiatric: Denies anxiety, Denies behavioral changes, Denies confusion, Denies depression, Denies homicidal ideation and Denies suicidal ideation Endocrine Endocrine: Denies fatigue, Denies flushing and Denies palpitations Hematologic/Lymphatic Hematologic/Lymphatic: Denies easy bruising Allergic/Immunologic Allergic/Immunologic: Denies urticaria, Denies throat swelling and Denies wheezing Patient History Medical History BPH (benign prostatic hyperplasia) Lower urinary tract symptoms (LUTS) Popliteal aneurysm Prostate cancer Prostate cancer Surgical History H/O cataract removal with insertion of prosthetic lens H/O hernia repair History of appendectomy S/P aneurysm repair Family History Mother Uterine cancer Father CVA (cerebral vascular accident) Brother Heart attack Social History marital status: number of children: 1 household members: spouse Smoking Status: Former smoker Tobacco: How many years used: 6 alcohol intake: current caffeine: Yes Smoking Status: Former smoker alcohol intake frequency: 0-2 drinks per day Substance Use Type: does not use Exam Narrative Exam Narrative: GEN: AOx3 and in mild distress EYES: Pupils are equal, round, and reactive to light and accommodation. Extraoccular muscles are intact bilaterally. There is no subconjunctival hemorrhage or exudate. CHEST: Lungs are clear to auscultation bilaterally and free of wheezes, rales, or rhonchi. Heart rate is regular rhythm, there are no murmurs, clicks, rubs, or gallops. There is no chest wall tenderness. ABD: Abdomen is soft and nontender. There is no guarding or rebound. Bowel sounds are normal in all 4 quadrants. There is no mass or organomegaly. : No active bleeding noted. No external trauma EXT: Full painless ROM of all extremities with no loss of sensation or strength. SKIN: Warm, pink, and dry. No erythema or rash Initial Vital Signs Initial Vital Signs: Vital Signs Temperature 97.8 F 03/22/21 09:52 Pulse Rate 89 03/22/21 09:52 Respiratory Rate 14 03/22/21 09:52 Blood Pressure 151/77 H 03/22/21 09:52 Pulse Oximetry 99 03/22/21 09:52 Course Course Course Narrative: Nursing has replaced the catheter without difficulty, urine sent to the lab. Orders Ordered: ED Orders 03/22/21 10:10 Urinalysis and Microscopic Stat Urine Culture Stat Vital Signs Vital signs: Vital Signs - 8 hr 03/22/21 09:52 03/22/21 10:46 Temperature 97.8 F Pulse Rate 89 70 Respiratory Rate 14 14 Blood Pressure 151/77 H 131/78 Pulse Oximetry 99 99 MDM - Male Genitourinary Lab Data Labs: Lab Results 03/22/21 Range/Units 10:10 Urine Color Red Urine Appearance Cloudy Urine pH 5.0 (4.5-8.0) Ur Specific [place] 1.025 (1.000-1.035) Urine Protein 2+ H (Negative) Urine Glucose (UA) Negative (Negative) g/dL Urine Ketones Trace H (NEGATIVE) Urine Occult Blood 3+ H (Negative) Urine Nitrate Negative (Negative) Urine Bilirubin Negative (NEGATIVE) Urine Urobilinogen 0.2 (0.2) E.U./dL Ur Leukocyte Esterase 1+ H (NEGATIVE) Urine RBC >100/hpf H (0-5/HPF) Urine WBC 5-10/hpf H (0-5/HPF) Urine Bacteria None seen (None) Ur Culture Indicated? Specimen cultured MDM Narrative Medical decision making narrative: Quick arita swap. Patient otherwise well and free of complaint. No suprapubic pain, fever, chills nor nausea or vomiting. 5-10 wbc's noted in the presence of 100 RBCs on urinalysis and this will be cultured. We will hold off on antibiotics until the results of the culture. This information has been relayed to the patient and he understands and agrees with the plan. Discharge Plan Departure Patient Disposition: Home Clinical Impression: Problem with Arita catheter Qualifiers: Encounter type: initial encounter Qualified Code(s): T83.9XXA - Unspecified complication of genitourinary prosthetic device, implant and graft, initial encounter Instructions: How to Care for Your Arita Catheter -- Male Activity Restrictions/Additional Instructions: *You have been diagnosed with [Arita catheter problem. There is no obvious urine infection and you do not have symptoms of urinary infection. The urine will be cultured and if it shows bacteria and antibiotic is indicated we will call you in a few days.] *What to do: *Please continue to take your regular medications as directed. [ ] New medication prescriptions sent to your pharmacy: [ ] [ ] New medication written as a paper prescription [ x] No new medications given *Please follow up with your primary care provider in 2-3 days, call for an appointment. Let them know you were seen in the Emergency Department and that we ask that you be seen in follow up. We will electronically transmit a record of today's note if your PCP is in our system *If you do not have a primary care provider please contact the [facility] Resource line at [phone]. They will ask some questions about your medical history and help get you set up with a doctor in the community. *Return to Emergency Department if you should have any new, worsening or concerning symptoms, such as [fever greater than 101 F, shaking chills, worsening pain, persistent vomiting or other bothersome symptoms] Prescriptions: No Action benzonatate [Tessalon Perles] 100 mg capsule 100 mg PO TID PRN (Reason: cough) 7 Days Qty: 21 RF: 0 tamsulosin 0.4 mg capsule 0.4 mg PO BID RF: 0 losartan 50 mg Tablet 50 mg PO DAILY Qty: 30 RF: 0 atorvastatin [Lipitor] 20 mg Tablet 40 mg PO BEDTIME Qty: 30 RF: 0 Lupron Depot (3 month) 11.25 mg Syringe Kit 11.25 mg IM [id number] RF: 0 aspirin 500 mg Tablet 500 mg PO BID RF: 0
[2021-03-22 10:18] LABS: Bacteria Urine None Seen
[2021-03-22 10:20] LABS: Appearance Urine UA CLOUDY; Bilirubin Urine UA NEGATIVE (NEGATIVE); Color Urine UA RED; Glucose Urine UA NEGATIVE (Negative); Ketones Urine UA TRACE (NEGATIVE); Leukocyte Esterase Urine UA 1+ (NEGATIVE); Nitrite Urine UA NEGATIVE (Negative); Occult Blood Urine UA 3+ (Negative); Protein Urine UA 2+ (Negative); Specific Gravity Urine UA 1.025 (1.000-1.035); Urobilinogen Urine UA 0.2 E.U./dL (0.2)
[2021-03-22 10:26] LABS: Culture Indicated Urine Specimen Cultured; RBC Urine >100/HPF (0-5/HPF); WBC Urine 5-10/HPF (0-5/HPF)
--- NOTE | 2021-03-22 10:45 | PC.NURSE ---
extensive education regarding catheter care w/ return demonstration and verbalization of education. Denies questions / concerns.
[2021-03-22 10:46] VITALS: BP 131/78; PULSE 70; RESP 14; O2SAT 99
== END 2021-03-22 11:02 | disposition home or self-care (01) ==
PROVIDERS: Emergency Provider Emergency Medicine
DX: T83.9XXA Unspecified complication of genitourinary prosthetic device, implant and graft, initial encounter (principal)
CPT/HCPCS: 51702; 81001; 87086; 99283

== ENCOUNTER → 2021-03-24 13:26 | Outpatient (CLI) | payer MEDICARE, OTHER, SELFPAY ==
[2020-12-18 09:38] VITALS: BMI 28.9
[2021-03-24 15:32] LABS: Calcium 9.6 mg/dL (8.4-10.2)
[2021-03-24 16:03] LABS: Prostate Specific Antigen 3.61 ng/mL (0.10-4.00)
[2021-03-24 16:06] LABS: Testosterone 13.3 ng/dL (71.8-623)
[2021-03-24 16:43] LABS: Vitamin D 25 Hydroxy (D3) 27.5 ng/mL (30.0-100.0)
== END ==
PROVIDERS: Referring Provider Specialist; Visit Provider Specialist
DX: C61 Malignant neoplasm of prostate (principal); R33.8 Other retention of urine; R39.9 Unspecified symptoms and signs involving the genitourinary system; M85.80 Other specified disorders of bone density and structure, unspecified site
CPT/HCPCS: 36415; 51701; 52000; 82306; 82310; 84153; 84403; 87086; 99215

== ENCOUNTER 2021-03-28 13:07 | Emergency (ER) | payer MEDICARE, OTHER, SELFPAY ==
[2020-12-18 09:38] VITALS: BMI 28.9
[2021-03-28 13:15] VITALS: BP 121/66; PULSE 65; RESP 18; TEMP 36.9; O2SAT 98
[2021-03-28 13:16] VITALS: BP 121/66; PULSE 71; TEMP 36.9; O2SAT 98
[2021-03-28 13:42] VITALS: PULSE 65; O2SAT 97
--- NOTE | 2021-03-28 13:47 | ED.MALEGU ---
HPI - Male Genitourinary General Chief complaint: Urogenital-Male Stated complaint: Catheter coming out Time Seen by Provider: 03/28/21 13:19 Source: patient Mode of arrival: Family Vehicle Limitations: no limitations History of Present Illness HPI Narrative: 75-year-old gentleman with a history of BPH. He is scheduled for TUR on the . He had acute urinary retention and Tam catheter placed approximately 3 days ago. This morning he noticed some intermittent blocking, sensation of bladder distention and urine leaking around the catheter and occasional blood clot. He he reports no fevers, abdominal pain, constipation or other acute issues. He comes in for help with Tam catheter. Related Data Home Medications Medication Instructions Recorded Confirmed tamsulosin 0.4 mg PO BID 08/05/20 03/26/21 aspirin 500 mg PO BID 03/22/21 03/26/21 leuprolide (3 month) [Lupron Depot 11.25 mg IM [id number] 03/22/21 03/26/21 (3 month)] Previous Rx's Medication Instructions Recorded atorvastatin [Lipitor] 40 mg PO BEDTIME #30 tab 08/06/20 losartan 50 mg PO DAILY #30 tab 08/06/20 Allergies Allergy/AdvReac Type Severity Reaction Status Date / Time No Known Drug Allergies Allergy Verified 03/28/21 13:28 Review of Systems Review of Systems Narrative: Pertinent positive and negative findings as per HPI Remainder of review of systems is otherwise unremarkable for Constitutional: Fevers, chills, weakness ENT: No sore throat, neck pain, ear pain CV: Chest pain, palpitations, Respiratory: Cough, wheeze, dyspnea GI: Nausea, vomiting, diarrhea, Patient History Medical History BPH (benign prostatic hyperplasia) HLD (hyperlipidemia) HTN (hypertension) Osteopenia Popliteal aneurysm Prostate cancer Surgical History H/O cataract removal with insertion of prosthetic lens H/O hernia repair History of appendectomy Hx of cystoscopy (03/24/21) S/P aneurysm repair Family History Mother Uterine cancer Father CVA (cerebral vascular accident) Brother Heart attack Social History marital status: number of children: 1 household members: spouse Smoking Status: Former smoker Tobacco: How many years used: 6 alcohol intake: current caffeine: Yes Smoking Status: Former smoker alcohol intake frequency: 0-2 drinks per day Substance Use Type: does not use Exam Narrative Exam Narrative: General: Alert appropriate in no acute distress Respiratory: Able to speak in full sentences, no obvious respiratory distress Skin: No obvious rashes, warm and dry Neurologic: Grossly intact no obvious asymmetries or abnormalities Psych: appropriate insight and affect, cooperative Initial Vital Signs Initial Vital Signs: Vital Signs Temperature 98.5 F 03/28/21 13:15 Pulse Rate 65 03/28/21 13:15 Respiratory Rate 18 03/28/21 13:15 Blood Pressure 121/66 03/28/21 13:15 Pulse Oximetry 98 03/28/21 13:15 Course Vital Signs Vital signs: Vital Signs - 8 hr 03/28/21 13:15 03/28/21 13:16 03/28/21 13:42 Temperature 98.5 F 98.5 F Pulse Rate 65 71 65 Respiratory Rate 18 Blood Pressure 121/66 121/66 Pulse Oximetry 98 98 97 03/28/21 14:00 03/28/21 14:12 Temperature Pulse Rate 66 63 Respiratory Rate Blood Pressure 135/74 Pulse Oximetry 97 99 MDM - Male Genitourinary MDM Narrative Medical decision making narrative: 75-year-old gentleman presents with catheter problem. I was not draining his bladder was feeling he was leaking around the catheter. With irrigation the initial catheter remained blocked. This was removed 2nd catheter was placed without difficulty. With aggressive irrigation through that catheter some small clots were appreciated with essentially clear urine. Second catheter is draining nicely. No evidence of other complications at this time. Patient is safe for home discharge Discharge Plan Departure Patient Disposition: Home Clinical Impression: Problem with Tam catheter Qualifiers: Encounter type: initial encounter Qualified Code(s): T83.9XXA - Unspecified complication of genitourinary prosthetic device, implant and graft, initial encounter Instructions: How to Care for Your Tam Catheter -- Male Activity Restrictions/Additional Instructions: Thank you for coming in today I suspect that you had a small blood clot or to that was blocking your catheter. Initial irrigation was not helpful in ensuring good catheter flow. Her catheter was replaced. With bedside ultrasound the Tam balloon was obviously in your bladder. With additional irrigation there some small clots that returned and the catheter at this point is flowing nicely Good luck with your surgery on Tuesday Prescriptions: No Action tamsulosin 0.4 mg capsule 0.4 mg PO BID RF: 0 losartan 50 mg Tablet 50 mg PO DAILY Qty: 30 RF: 0 atorvastatin [Lipitor] 20 mg Tablet 40 mg PO BEDTIME Qty: 30 RF: 0 Lupron Depot (3 month) 11.25 mg Syringe Kit 11.25 mg IM [id number] RF: 0 aspirin 500 mg Tablet 500 mg PO BID RF: 0
[2021-03-28 14:00] VITALS: PULSE 66; O2SAT 97
[2021-03-28 14:12] VITALS: BP 135/74; PULSE 63; O2SAT 99
== END 2021-03-28 14:41 | disposition home or self-care (01) ==
PROVIDERS: Emergency Provider Emergency Medicine
DX: T83.9XXA Unspecified complication of genitourinary prosthetic device, implant and graft, initial encounter (principal)
CPT/HCPCS: 51702; 99283

== ENCOUNTER 2021-03-30 10:12 | Day surgery (SDC) | payer MEDICARE, OTHER, SELFPAY ==
[2020-12-18 09:38] VITALS: BMI 28.9
[2021-03-26 10:26] VITALS: BMI 26.6
[2021-03-30] VITALS (12 sets, daily range): BP systolic 118–186; BP diastolic 67–90; PULSE 50–76; RESP 12–18; TEMP 36.1–37.1; O2SAT 97–100; BMI 26.6
--- NOTE | 2021-03-30 | PATH_ITS ---
[facility] Accession Number: [id number] . 01 Material submitted: . prostate - PROSTATE CHIPS . 01 Clinical history: . PT HISTORY OF PROSTATE CANCER AND ANDROGEN DEPRIVATION THERAPY . 02 Diagnosis: Prostate Chips, Transuretheral Resection of the Prostate (Weight 4 grams): Prostatic adenocarcinoma. Please see Surgical Pathology Cancer Case Summary. . SURGICAL PATHOLOGY CANCER CASE SUMMARY . Procedure: Transurethral resection of the prostate. Histologic type: Acinar adenocarcinoma. Histologic grade: Grade group 5 (Ed Score 4 + 5 = 9). Percentage of pattern 4 in Hamlin score: Approximately 95%. Percentage of pattern 5 in Ed score: Approximately 5%. . 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 . Tumor quantitation: Estimated percentage of prostate tissue involved by tumor: Approximately 50%. Number of positive chips: 42. Total number of chips: 88. Periprostatic fat invasion: Not identified. Seminal vesicle invasion: Not identified. Lymphovascular invasion: Not identified. Perineural invasion: Present. Additional pathologic findings: None identified. Treatment effect: Not identified. V 04/03/2021 1346 Local . 02 Comment: As part of routine supplier quality, this case was also reviewed by Dr. Dan, who agrees with the interpretation. . Results discussed with Dr. Barbosa's faculty administrator, Aparna, on 04-03-21 at approximately 1:50 p.m. . 02 Electronically signed: . Elizabeth Jaime MD, Pathologist NPI- [id number] . 01 Gross description: . The specimen is received in formalin labeled prostate chips and consists of multiple irvin-pink, partially cauterized fragments of soft tissue weighing 4 grams and measuring 6.0 x 3.5 x 2.0 cm in aggregate. The specimen is entirely submitted in cassettes A1-A5. Please note that a 0.8 cm in length x 0.2 cm in diameter prostate seed is identified within the container. ([id number]) /[facility] 03/31/2021 1745 Local . 02 Microscopic: . Immunohistochemical stains were performed to further evaluate the cells of interest. The control stain showed appropriate reactivity. . RESULTS: Block A1, A2, A3, A4 and A5: P63/HMCK: Both negative in regions of interest (grade 5) and positive in regions of interest (intraductal carcinoma, included in grade 4 estimate). . The absence of high molecular weight cytokeratin + p63 at the foci of interest supports the presence of Hamlin pattern 5 at these foci. . The presence of high molecular weight cytokeratin + p63 in foci of interest support the presence of intraductal carcinoma in these regions. . * This test was developed and its performance characteristics determined by [facility]. It has not been cleared or approved by the U.S. Food and Drug Administration. The FDA has determined that such clearance or approval is not necessary. This test is used for clinical purposes. It should not be regarded as investigational or for research. . 02 Pathologist provided ICD-10: R33.9, Z85.46, C61 . 02 CPT . 276229, [id number] Performed at: 01 [facility] [address] [place] [address], [place], [place] [id number] MD Harsha Rubio MD Phone: [phone] Performed at: 02 [facility] [address] [place] [id number] MD Aliyah Dan MD Phone: [phone]
[2021-03-30 10:43] LABS: COVID19 -Nasal RAPID Negative (Negative)
--- NOTE | 2021-03-30 11:20 | PM.PREOP ---
Pre-operative Note Interval Note History & Physical reviewed/Exam performed by Physician: Yes Changes to H&P: No
[2021-03-30] MEDS: LACTATED RINGERS 1,000 ML 84 ML IV (11:22)
[2021-03-30] MEDS: GENTAMICIN 160 MG in SODIUM CHLORIDE 0.9% 100 ML 104 ML IV (11:28)
[2021-03-30] MEDS: AMPICILLIN/SULBACTAM 3 GM 3 GM in SODIUM CHLORIDE 0.9% 100 ML IV (12:39)
--- NOTE | 2021-03-30 13:04 | SUR.OPER ---
Lithotomy on padded OR bed, head on pillow, arms secured on padded arm boards at <90 degrees abduction. Legs secured in padded yellow fins stirrups.
--- NOTE | 2021-03-30 13:04 | SUR.OPER ---
Pt arrived to the OR with an indwelling catheter. It was removed after he was asleep and before the prep. The urine was clear and yellow and there was approximately 250mL in the bag.
[2021-03-30] MEDS: BELLADONNA/OPIUM SUPPOSITORIES 1 EACH PR (13:11)
--- NOTE | 2021-03-30 13:44 | P.OP_ITS ---
Operative Date/Time/Diagnoses Date of procedure: 03/30/21 Time of procedure: 13:44 Pre-op diagnosis: 1. Urinary retention 2. History of prostate cancer Post-op diagnosis: same Procedure & Clinicians Procedure: 1. Transurethral resection of prostate 2. Clot evacuation Same procedure as scheduled: Yes Indications: 1. Urinary retention. 2. History of prostate cancer. 3. Organizing clot at base of bladder. Surgeon: Consuelo Barbosa Anesthesia Type: General Operative Notes Findings: 1. Urethra-normal caliber without annular stricture lesion. 2. External sphincter-coapted with minimal radiation effect. 3. Prostate-3.5 cm length with moderate lateral lobe hyperplasia and high median bar. 4. Bladder-2+ trabeculation. Normal ureteral orifices bilaterally. A moderate amount of organized clot line dependently in the bladder floor. Moderate catheter tip cystitis at the superior posterior bladder wall at the midline. Closure Type: not applicable Specimen(s): other (Prostate chips) Applied: catheter (# [address] [place] [address] hematuria catheter.) Estimated Blood Loss (mL): 5 Blood products transfused: none Procedure in detail: The patient was positioned supine and was administered general anesthesia. He was then repositioned semilithotomy and the lower abdomen, groin, genitalia prepped and draped in sterile fashion. The 25 [place] resectoscope was then passed lower urinary tract under direct visualization with the findings as described above. Resectoscope was then fitted with the working element and resection loop. Several pieces of organizing clot mine dependently in the floor the bladder within engaged with the loop in removed manually. Next, resection the prostate was undertaken by 1st making incisions at the 1 and 11:00 a.m. positions anteriorly to the capsule. The intervening tissue was then resected. Next, the left lateral, followed by the right lateral lobes were resected from the bladder neck to verumontanum. Finally the elevated median bar and median lobe were then taken down, again from the bladder neck to the willis umontanum. At no point was resection taken more distal the verumontanum and nor deeper than the surgical capsule. Hemostasis was attained with electrocautery. All chips and clots were then evacuated either manually or with the Ellick evacuator. The bladder was left partially filled and the resectoscope was then removed. A [address] [place] hematuria Tam catheter was then inserted, the balloon was inflated to 30 cc, and was then irrigated to check for patency. It was then attached to normal saline inflow and gravity outflow. The patient was then repositioned in supine, was awakened, transferred to a gurney for transport to recovery. Complications: none Post-operative Condition: stable Disposition: PACU Plan for aftercare: Admit acute care as outpatient with a bed.
[2021-03-30] MEDS: LACTATED RINGERS 1,000 ML 125 ML IV ×2 (14:46→21:38)
--- NOTE | 2021-03-30 14:53 | PC.NURSE ---
Rec'd pt to rm 225 from PACU at 1423. Pt is AO x4. Oriented to room/routine/fall risk, use of call light. Instructed pt to wait for assistance before getting OOB. Cont bladder irrigation functioning appropriately, 3 way arita draining to gravity. Bed alarm on. Call light in reach. Admission assessment complete.
--- NOTE | 2021-03-30 17:52 | PC.NURSE ---
Addendum entered by Sarah Walker R.N. 03/30/21 21:53: Pt resting @ intervals, denies any discomfort when asked. IVF continue as per orders. CBI & arita intact/patent. Stable post op course. Call light w/in reach, bed alarm on for pt safety. Continue w/plan of care. Original Note: Pt awake, denies any discomfort. Lungs clear, SpO2 98% RA IS to 3000 CBI infusing as per orders, Arita cath patent clear, yellow urine. IVF of LR @ 125cc/hr infusing into the left hand via pump w/o incidence. Call light w/in reach, pt calls appropriately for need.
[2021-03-30] MEDS: guaiFENesin ER 600 MG TAB PO (21:38)
[2021-03-31] VITALS: BP 111/64; PULSE 49; RESP 16; TEMP 36.6; O2SAT 97
[2021-03-31 06:00] VITALS: BP 126/70; PULSE 43; RESP 16; TEMP 36.3; O2SAT 100
--- NOTE | 2021-03-31 06:55 | PC.NURSE ---
0635 Arita discontinued, per MD ordered. Tolerated procedure, but noted small amount of blood after arita catheter was DC'd. After 10 mins. when arita was out pt. was dribbling some small amount of clear urine x2. Denies any pain, Dr. Barbosa also notified earlier that pt. HR was sb 49 & 44. Pt. denies any dizziness & CP. Will continue POC & monitor.
--- NOTE | 2021-03-31 08:56 | PC.NURSE ---
Addendum entered by Kevin Vincent R.N. 03/31/21 14:06: Spoke with MD at 1030. Reported UOP. Reported second PVR of 52. MD states he will d/c pt to home and recommend f/u and activity restrictions as written. Provided pt with dc packet and provided verbal education as well as the written material. Pt verbalizes understanding. Pt dressed himself and gathered all belongings. Pt escorted to POV by RN and was ambulatory with steady gait. Original Note: Pt had indwelling catheter removed on NOC shift. ~0800 pt able to void per urinal 175 ML plus small amount unmeasured due to dribbling. PVR shows 132 ML. Pt c/o intermittent urgency and slight burning at onset of urination. Encouraged PO fluids and education provided regarding urinary pattern/sensation post catheter removal. Pt verbalizes understanding. Denies overt pain and reports sensation as brief/tolerable. Pt is up walking around in the room tending to ADLs independently. Gait is steady. Denies any dizziness/lightheadedness or symptoms r/t bradycardia which is noted on assessment.
[2021-03-31 09:13] VITALS: BP 128/69; PULSE 38; RESP 17; TEMP 36.1; O2SAT 98
[2021-03-31 09:15] VITALS: PULSE 83; RESP 16; O2SAT 95
--- NOTE | 2021-03-31 10:22 | PM.DS.1 ---
History of Present Illness History of Present Illness Date Patient Seen: 03/31/21 Time Patient Seen: 10:22 Chief complaint: OPB Narrative: The patient is postop day 1. Status post uncomplicated TURP under general anesthetic 03/30/2021 for urinary retention. Three-way Tam catheter was discontinued earlier this morning and since then the patient is voided over 300 cc without difficulty. PVR was approximately 50 cc. He is experiencing no significant postoperative pain. He is able to ambulate without difficulty. He is tolerating general diet. Discharge Providers Provider Discharge Date: 03/31/21 Discharge provider: Consuelo Barbosa MD Summary Hospital Course Discharge Diagnosis: Urinary retention Hospital Course: Patient was admitted on the morning of 03/30/2021 and underwent uncomplicated transurethral resection of the prostate. Postoperative course was then unremarkable. On the morning of 03/31/2021, the Tam catheter was removed and he subsequently had successful voiding trial. He is discharged with no new prescriptions. He is instructed to avoid use of aspirin other than 81 mg aspirin for 4 weeks. He is instructed to and no longer need tamsulosin. Post TURP activity, hygiene, and lifting restrictions/instructions explained. Pathology report is pending at discharge. Status at Discharge Cognitive/behavioral status at discharge: oriented Functional status at discharge: independent ambulation Overall status at discharge: patient is back to baseline Exam Vital Signs (past 8 hours): - 03/31/21 06:00 03/31/21 09:13 03/31/21 09:15 Temperature 97.3 F L 97.0 F L Pulse Rate 43 L 38 L 83 Respiratory Rate 16 17 16 Blood Pressure 126/70 128/69 Pulse Oximetry 100 98 95 Oxygen Delivery Method Room Air Oxygen Flow Rate 0 Objective Labs Labs: Laboratory Results - last 24 hr 03/30/21 10:22 SARS-CoV-2 (PCR) Negative PFSH Medical History BPH (benign prostatic hyperplasia) HLD (hyperlipidemia) HTN (hypertension) Osteopenia Popliteal aneurysm Prostate cancer Surgical History H/O cataract removal with insertion of prosthetic lens H/O hernia repair History of appendectomy Hx of cystoscopy (03/24/21) S/P aneurysm repair Family History Mother Uterine cancer Father CVA (cerebral vascular accident) Brother Heart attack Social History marital status: number of children: 1 household members: spouse Smoking Status: Former smoker Tobacco: How many years used: 6 alcohol intake: current caffeine: Yes Discharge Plan Discharge Plan Patient Disposition: Home Provider Discharge Comment: Contact the urology clinic to schedule follow-up appointment in 6-8 weeks with PSA and PVR. Discharge orders & Medications Discharge Orders: Discharge (Order); Ordered 03/31/21 Ordered By: Consuelo Barbosa Prescriptions: Continued losartan 50 mg Tablet 50 mg PO DAILY Qty: 30 RF: 0 atorvastatin [Lipitor] 20 mg Tablet 40 mg PO BEDTIME Qty: 30 RF: 0 Lupron Depot (3 month) 11.25 mg Syringe Kit 11.25 mg IM [id number] RF: 0 Discontinued tamsulosin 0.4 mg capsule 0.4 mg PO BID RF: 0 aspirin 500 mg Tablet 500 mg PO BID RF: 0 Diet/Activity/Treatments Diet: Diet as Tolerated Activity: No strenuous activity or lifting greater than 15 lb x 4 weeks. Other treatments: No use of aspirin for 4 weeks. Skin/Wound/Dressing Care Report to your healthcare provider any signs of infection, such as:: chills, fever and increased pain Visit Report/Discharge Packet Instructions: DI for Transurethral Resection of the Prostate Stand Alone Forms: Surgery Discharge Discharge Data Attending Provider: Consuelo Barbosa
--- NOTE | 2021-03-31 11:16 | CM.DANOTE ---
Discharge Planning/Care Management DCP: assessment: case received, EMR reviewed, d/c order noted. Met with pt and introduced self and role. Pt confirms he is feeling good and ready for d/c home today. He is arranging for his to pick him up shortly. Home today CM Discharge Assessment Start: 03/31/21 11:15 Freq: Status: Active Protocol: Document 03/31/21 11:16 ITV (Rec: 03/31/21 11:16 ITV [id number]) Discharge Planning Assessment Advance Directives? Yes Advance Directives on File No History Provided By Patient,Medical Record Household Members spouse Discharge Plan Home Transportation Arrangement Spouse Referrals Initiated None needed Document 03/31/21 11:16 ITV (Rec: 03/31/21 11:16 ITV [id number]) Discharge Planning Assessment Advance Directives? Yes Advance Directives on File No History Provided By Patient,Medical Record Household Members spouse Discharge Plan Home Transportation Arrangement Spouse Referrals Initiated None needed Document 03/31/21 11:16 ITV (Rec: 03/31/21 11:16 ITV [id number]) Discharge Planning Assessment Advance Directives? Yes Advance Directives on File No History Provided By Patient,Medical Record Household Members spouse Discharge Plan Home Transportation Arrangement Spouse Referrals Initiated None needed Pre-Anesthesia Assessment Start: 03/26/21 10:26 Freq: Status: Active Protocol: Document 03/26/21 10:26 CAB (Rec: 03/26/21 10:35 CAB [id number]) Pre-Anesthesia Assessment Patient Information Reviewed Via Chart Review Comment COVID screen not identified Primary Care Provider Unknown Seen Specialist in Last 12 Months Yes Specialist Seen Emergency,Urologist Primary Language [place] Preferred Language [place] Network Analyst Required No Height 175.26 cm Weight 81.647 kg Body Mass Index (BMI) 26.6 Barriers to Learning None Anesthesia Review Requested No Artist'S Representative No alcohol intake current alcohol intake frequency 0-2 drinks per day Smoking Status Former smoker how long ago did patient quit smoking 1977 Substance Use Type does not use History of Falling (Recent or History of No ) Patient is completely paralyzed or No completely immobile Mental Status Oriented to own ability Hx Sleep Apnea No Currently Taking a Beta Vania No Anti-Coagulant Therapy Pt taking ASA 500mg BID Hx Pacemaker/ICD No Pacemaker Rep Required? No Bladder Pattern Retention Urinary Catheter Present Yes Hx Urinary Self Catheterization No Diabetes No Marital Status Lives With spouse Patient Discharge Plan Description Return Home Do You Have Any Spiritual Beliefs That No May Affect Your HC Choices? Do You Have Any Cultural Practices That No May Affect Your HC Choices? Emergency Contact Name Domenica Colvin Emergency Contact Advance Directives? Yes Advance Directives on File No Power of Powerhouse Mechanic Supervisor Yes Power of Powerhouse Mechanic Supervisor Name Kali Colvin Power of Powerhouse Mechanic Supervisor
== END 2021-03-31 11:30 | disposition home or self-care (01) ==
LOC: OR 12:38 → AC 12:39
PROVIDERS: Referring Provider Specialist; Visit Provider Specialist
PROC: 0VT08ZZ Resection of Prostate, Via Natural or Artificial Opening Endoscopic (ICD-10-PCS; CPT 52601; principal; 2021-03-30 12:45)
DX: C61 Malignant neoplasm of prostate (principal); R33.9 Retention of urine, unspecified; N40.0 Benign prostatic hyperplasia without lower urinary tract symptoms; Z85.46 Personal history of malignant neoplasm of prostate; I10 Essential (primary) hypertension; Z20.822 Contact with and (suspected) exposure to COVID-19; R33.8 Other retention of urine
CPT/HCPCS: 52601; 51798; 82962; 87635; 94762; 99283; J0295; J1100; J2405; J2704; J3010

== ENCOUNTER 2021-03-31 23:43 | Emergency (ER) | payer MEDICARE, OTHER, SELFPAY ==
[2021-03-31 15:24] VITALS: BMI 26.6
[2021-03-31 23:48] VITALS: BP 190/99; PULSE 82; RESP 22; TEMP 36.4; O2SAT 95
--- NOTE | 2021-04-01 00:11 | ED_ITS ---
HPI - Male Genitourinary General Chief complaint: Urogenital-Male Stated complaint: can't urinate Time Seen by Provider: 03/31/21 23:44 Source: patient Mode of arrival: Ambulatory Limitations: no limitations History of Present Illness HPI Narrative: 75-year-old male presents with the inability to urinate over the course of the day. He states he was just in the urology office and they had removed a Tam catheter any had no difficulty earlier. He now has increasing suprapubic pain and cramping. The pain is worse with motion and improves with rest. He denies any radiation of the pain nor other symptoms such as dizziness, weakness or lightheadedness. Onset (ago): hour(s) Duration: constant Location: abdomen Severity: moderate Quality: aching and stabbing Associated symptoms: Reports denies other symptoms Related Data Home Medications Medication Instructions Recorded Confirmed Lupron Depot (3 month) 11.25 mg IM [id number] 03/22/21 03/30/21 Previous Rx's Medication Instructions Recorded atorvastatin [Lipitor] 40 mg PO BEDTIME #30 tab 08/06/20 losartan 50 mg PO DAILY #30 tab 08/06/20 Allergies Allergy/AdvReac Type Severity Reaction Status Date / Time No Known Drug Allergies Allergy Verified 03/30/21 11:04 Review of Systems Constitutional Constitutional: Denies chills, Denies fatigue, Denies fever(s), Denies frequent falls, Denies lethargy and Denies weakness Eyes Eyes: Denies change in vision, Denies eye discharge, Denies irritation and Denies loss of vision ENT Ears, Nose, Mouth, and Throat: Denies change in voice, Denies dizziness, Denies neck pain, Denies sore throat and Denies throat swelling Cardiovascular Cardiovascular: Denies chest pain, Denies irregular heart rhythm, Denies lightheadedness, Denies palpitations, Denies dyspnea, Denies dyspnea on exertion and Denies orthopnea Respiratory Respiratory: Denies cough, Denies dyspnea, Denies dyspnea on exertion and Denies wheezing Gastrointestinal Gastrointestinal: Reports abdominal pain, Denies change in bowel habits, Denies diarrhea, Denies nausea and Denies vomiting Musculoskeletal Musculoskeletal: Denies neck pain and Denies numbness Integumentary/Breasts Skin/Breast: Denies pruritus, Denies erythema, Denies rash and Denies wounds Neurologic Neurologic: Denies behavioral changes, Denies confusion, Denies dizziness, Denies frequent falls, Denies loss of vision, Denies numbness and Denies weakness Psychiatric Psychiatric: Denies anxiety, Denies behavioral changes, Denies confusion, Denies depression, Denies homicidal ideation and Denies suicidal ideation Endocrine Endocrine: Denies fatigue, Denies flushing and Denies palpitations Hematologic/Lymphatic Hematologic/Lymphatic: Denies easy bruising Allergic/Immunologic Allergic/Immunologic: Denies urticaria, Denies throat swelling and Denies wheezing Patient History Medical History BPH (benign prostatic hyperplasia) HLD (hyperlipidemia) HTN (hypertension) Osteopenia Popliteal aneurysm Prostate cancer Surgical History H/O cataract removal with insertion of prosthetic lens H/O hernia repair History of appendectomy Hx of cystoscopy (03/24/21) S/P aneurysm repair Family History Mother Uterine cancer Father CVA (cerebral vascular accident) Brother Heart attack Social History marital status: number of children: 1 household members: spouse Smoking Status: Former smoker Tobacco: How many years used: 6 alcohol intake: current caffeine: Yes Smoking Status: Former smoker alcohol intake frequency: 0-2 drinks per day Substance Use Type: does not use Exam Narrative Exam Narrative: GEN: AOx3 and in mild distress EYES: Pupils are equal, round, and reactive to light and accommodation. Extraoccular muscles are intact bilaterally. There is no subconjunctival hemorrhage or exudate. CHEST: Lungs are clear to auscultation bilaterally and free of wheezes, rales, or rhonchi. Heart rate is regular rhythm, there are no murmurs, clicks, rubs, or gallops. There is no chest wall tenderness. ABD: Abdomen is Tender in the suprapubic region and full on palpation, bowel sounds present There is no guarding or rebound. Bowel sounds are normal in all 4 quadrants. There is no mass or organomegaly. EXT: Full painless ROM of all extremities with no loss of sensation or strength. SKIN: Warm, pink, and dry. No erythema or rash Initial Vital Signs Initial Vital Signs: Vital Signs Temperature 97.5 F L 03/31/21 23:48 Pulse Rate 82 03/31/21 23:48 Respiratory Rate 22 03/31/21 23:48 Blood Pressure 190/99 H 03/31/21 23:48 Pulse Oximetry 95 03/31/21 23:48 Course Course Course Narrative: nursing has placed a Tam catheter, urine draining and patient has near complet Vital Signs Vital signs: Vital Signs - 8 hr 03/31/21 23:48 Temperature 97.5 F L Pulse Rate 82 Respiratory Rate 22 Blood Pressure 190/99 H Pulse Oximetry 95 Discharge Plan Departure Patient Disposition: Home Clinical Impression: Acute urinary retention Instructions: DI for Urinary Retention in Men Activity Restrictions/Additional Instructions: *You have been diagnosed with [acute urinary retention] *What to do: *Please continue to take your regular medications as directed. [ ] New medication prescriptions sent to your pharmacy: [ ] [ ] New medication written as a paper prescription [x ] No new medications given *Please follow up with your urologist in 2-3 days, call for an appointment. Let them know you were seen in the Emergency Department and that we ask that you be seen in follow up. We will electronically transmit a record of today's note *If you do not have a primary care provider please contact the [facility] Resource line at [phone]. They will ask some questions about your medical history and help get you set up with a doctor in the community. *Return to Emergency Department if you should have any new, worsening or concerning symptoms, such as [fever greater than 101 F, shaking chills, worsening pain, persistent vomiting or other bothersome symptoms] Prescriptions: No Action losartan 50 mg Tablet 50 mg PO DAILY Qty: 30 RF: 0 atorvastatin [Lipitor] 20 mg Tablet 40 mg PO BEDTIME Qty: 30 RF: 0 Lupron Depot (3 month) 11.25 mg Syringe Kit 11.25 mg IM [id number] RF: 0 Referrals: Consuelo Barbosa MD [Physician] -
--- NOTE | 2021-04-01 00:58 | PC.NURSE ---
0020 18g coude tip arita catheter placed per MD order, 600ml clear orange urine return
== END 2021-04-01 01:13 | disposition home or self-care (01) ==
PROVIDERS: Emergency Provider Emergency Medicine
DX: R33.8 Other retention of urine (principal)
CPT/HCPCS: 51798; 99282; 99283

== ENCOUNTER → 2021-04-15 09:52 | Outpatient (CLI) | payer MEDICARE, OTHER, SELFPAY ==
[2021-04-08 11:24] VITALS: BMI 26.6
[2021-04-15 11:41] LABS: Prostate Specific Antigen 2.65 ng/mL (0.10-4.00)
[2021-04-15 11:43] LABS: Testosterone 11.5 ng/dL (71.8-623)
== END ==
PROVIDERS: Referring Provider Specialist; Visit Provider Specialist
DX: R39.9 Unspecified symptoms and signs involving the genitourinary system (principal); C61 Malignant neoplasm of prostate
CPT/HCPCS: 36415; 84153; 84403

== ENCOUNTER → 2021-05-08 11:51 | Outpatient (CLI) | payer MEDICARE, OTHER, SELFPAY ==
[2021-04-21 10:19] VITALS: BMI 26.6
[2021-05-08 12:59] LABS: BUN Creatinine Ratio 23.2 (6-22); Blood Urea Nitrogen 19 mg/dL (9-20); Calcium 8.9 mg/dL (8.4-10.2); Carbon Dioxide 21 mmol/L (22-32); Chloride 110 mmol/L (98-107); Estimated Glomerular Filt Rate > 60.0 mL/min (>60); Glucose 101 mg/dL (80-110); HEMOLYSIS < 15 (0-50); Sodium 138 mmol/L (137-145)
== END ==
PROVIDERS: Referring Provider Specialist; Visit Provider Specialist
DX: Z01.812 Encounter for preprocedural laboratory examination (principal)
CPT/HCPCS: 36415; 80048

== ENCOUNTER → 2021-05-11 12:25 | Outpatient (CLI) | payer MEDICARE, OTHER, SELFPAY ==
[2021-04-21 10:19] VITALS: BMI 26.6
--- NOTE | 2021-05-11 12:27 | DI.NM.S_ITS ---
PROCEDURE: RI BONE SCAN WHOLE BODY RADIOPHARMACEUTICAL: 20.3 mCi Tc-99m MDP IV. INDICATIONS: Prostate CA evaluate possible mets TECHNIQUE: Delayed whole-body scintigrams were obtained approximately 3-4 hours after intravenous injection of radiotracer. Anterior and posterior views were acquired from vertex to feet. Additional left and right oblique views of the skull, cervical spine and pelvis were obtained. COMPARISON: [facility], MR, MR STROKE, 08/05/2020, 17:56. [facility], [place], BONE SCAN WHOLE BODY, 01/28/2017, 13:24. [facility], CT, CT CHEST ABD PEL W CON, 05/11/2021, 13:40. FINDINGS: There is a focal uptake in the right temporal bone, new since the last exam, suspicious for metastasis. No lesions are identified in sternum, clavicles, scapulae, ribs, bony pelvis, and visualized shafts of the long bones. There is low level increased uptake in cervical, thoracic and lumbar spine with distribution indistinguishable from degenerative disc and facet disease; early metastasis to spine could be obscured by degenerative changes. There are foci of increased periarticular activity involving shoulders, sternoclavicular joints, right elbow, wrists, hips, SI joints, knees and feet, compatible with degenerative/arthritic changes. IMPRESSION: 1. There is a focal uptake involving the right temporal bone highly suspicious for metastasis. This finding is new since the last bone scan. Dictated by: Divine Quinonez M.D. on 05/11/2021 at 17:43 Approved by: Divine Quinonez M.D. on 05/11/2021 at 18:09
--- NOTE | 2021-05-11 14:06 | DI.CT.S_ITS ---
PROCEDURE: CT CHEST ABD PEL W CON INDICATIONS: Prostate CA TECHNIQUE: After the administration of oral and intravenous contrast, axial sections acquired from the supraclavicular neck to the pubic symphysis. Coronal and sagittal reformats were performed. For radiation dose reduction, the following was used: automated exposure control, adjustment of mA and/or kV according to patient size. COMPARISON: [place], [place], [place] BONE SCAN WHOLE BODY, 05/11/2021, 16:05. FINDINGS: Image quality: Excellent. CHEST: Lungs and pleura: No acute air space opacities. No pleural effusions or pneumothorax. Central and peripheral airways are patent and normal in caliber. Mediastinum: Heart size is normal. No pericardial effusion. No mediastinal adenopathy by size criteria. The aorta has atherosclerosis with no aneurysmal dilatation. Esophagus is normal in caliber. No hiatal hernia. Chest wall: No axillary or supraclavicular adenopathy by size criteria. Thyroid gland is normal . ABDOMEN: Solid organs: Liver: The liver has no mass or intrahepatic biliary ductal dilatation. The portal vein and hepatic veins are patent. Biliary: The gallbladder has no gallstones, pericholecystic fluid, gallbladder wall thickening, or surrounding inflammatory change. Pancreas: The pancreas has no mass or ductal dilatation. There is no surrounding inflammation. Spleen: Normal size. There are no masses. Adrenals: No hypertrophy or nodules. Kidneys: No obstructive calculus or hydronephrosis. No solid mass. Both kidneys have simple cysts. Bowel: The distal esophagus and stomach are normal. The small bowel has a normal caliber and appearance. The terminal ileum is normal. The large bowel has increased stool throughout consistent with constipation.. No free fluid or air. Nodes and vessels: No retroperitoneal or mesenteric adenopathy by size criteria. The aorta has atherosclerosis with no aneurysmal dilatation. Abdominal wall: There is a fat containing left inguinal hernia. PELVIS: Genitourinary: The bladder has no wall thickening or mass. The bladder is decompressed. There are surgical clips consistent with prior prostatectomy. Several round nodular densities in the prostatectomy bed are seen which could be recurrence of disease versus residual seminal vesicle. No definite wall thickening or focal mass of the bladder, however visualization is limited due to lack of distention. Abdominal wall: Fat containing left inguinal hernia. BONES: There is degenerative disc disease at L3-4, L4-5, and L5-S1. No vertebral body compression fractures. IMPRESSION: 1. No evidence of metastatic disease to the chest, abdomen, or pelvis. 2. No evidence of osseous metastatic disease. 3. Several round nodular densities in the prostatectomy better seen which could be recurrence of disease versus residual seminal vesicles. Comparison to prior CT is suggested. No prior CT imaging is available for comparison currently. Dictated by: Tl Cade M.D. on 05/11/2021 at 16:30 Approved by: Tl Cade M.D. on 05/11/2021 at 21:58
== END ==
PROVIDERS: Referring Provider Specialist; Visit Provider Specialist
DX: C61 Malignant neoplasm of prostate (principal); R33.9 Retention of urine, unspecified; R39.9 Unspecified symptoms and signs involving the genitourinary system; M89.9 Disorder of bone, unspecified
CPT/HCPCS: 71260; 74177; 78306; A9503

== ENCOUNTER → 2021-05-27 16:42 | Outpatient (CLI) | payer MEDICARE, OTHER, SELFPAY ==
[2021-04-21 10:19] VITALS: BMI 26.6
== END ==
PROVIDERS: Visit Provider Specialist
DX: R33.9 Retention of urine, unspecified (principal); R39.9 Unspecified symptoms and signs involving the genitourinary system
CPT/HCPCS: 87077; 87086; 87186

== ENCOUNTER → 2021-06-15 10:18 | Outpatient (CLI) | payer MEDICARE, OTHER, SELFPAY ==
[2021-04-21 10:19] VITALS: BMI 26.6
[2021-06-15 11:49] LABS: COVID19 -Nasal RAPID Negative (Negative)
== END ==
PROVIDERS: Visit Provider Nurse Practitioner Family
DX: R05 Cough (principal); R09.81 Nasal congestion; R53.83 Other fatigue; Z20.822 Contact with and (suspected) exposure to COVID-19
CPT/HCPCS: 87635

== ENCOUNTER → 2021-09-01 13:39 | Outpatient (CLI) | payer MEDICARE, OTHER, SELFPAY ==
[2021-04-21 10:19] VITALS: BMI 26.6
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
== END ==
PROVIDERS: Referring Provider Internal Medicine; Visit Provider Internal Medicine
DX: M54.9 Dorsalgia, unspecified; M47.812 Spondylosis without myelopathy or radiculopathy, cervical region
CPT/HCPCS: 72040; 72072

== ENCOUNTER → 2021-09-17 10:08 | Outpatient (CLI) | payer MEDICARE, OTHER, SELFPAY ==
[2021-04-21 10:19] VITALS: BMI 26.6
[2021-09-17 10:56] LABS: Add Manual Diff / Slide Review NO; Basophils Absolute Auto 0 /uL (0-100); Eosinophils Absolute Auto 100 /uL (0-450); Eosinophils Percent Auto 3.4 % (2-4); Hemoglobin 12.5 g/dL (13.5-17.5); Lymphocytes Absolute Auto 1100 /uL (1100-4500); Lymphocytes Percent Auto 29.9 % (25-40); Mean Corpuscular HGB Conc 32.8 % (30-36); Mean Corpuscular Volume 91.5 fL (80-100); Monocytes Absolute Auto 500 /uL (0-900); Monocytes Percent Auto 12.7 % (3-14); Neutrophils Absolute Auto 2000 /uL (1500-7000); Platelet Count 316 X10^3/uL (150-400); Red Blood Cell Count 4.16 X10^6/uL (4.5-5.9); Red Cell Distribution Width 15.1 % (11.6-14.8); White Blood Cell Count 3.7 X10^3/uL (4.5-11.0)
[2021-09-17 11:06] LABS: Alanine Aminotransferase 25 IU/L (<50); Albumin 3.9 g/dL (3.5-5.0); Albumin Globulin Ratio 1.3 (1.0-2.8); Alkaline Phosphatase 78 U/L (38-126); Aspartate Aminotransferase 33 IU/L (17-59); BUN Creatinine Ratio 24.1 (6-22); Bilirubin Total 0.5 mg/dL (0.2-1.3); Blood Urea Nitrogen 19 mg/dL (9-20); Calcium 9.1 mg/dL (8.4-10.2); Carbon Dioxide 28 mmol/L (22-32); Chloride 105 mmol/L (98-107); Cholesterol 240 mg/dL (140-199); Estimated Glomerular Filt Rate > 60.0 mL/min (>60); Globulin 3.1 g/dL (1.7-4.1); Glucose 97 mg/dL (80-110); HDL Cholesterol 54 mg/dL (40-60); HEMOLYSIS < 15 (0-50); LDL Cholesterol Calculated 162 mg/dL (<100); Potassium 4.4 mmol/L (3.4-5.1); Sodium 138 mmol/L (137-145); Triglycerides 122 mg/dL (35-150)
== END ==
PROVIDERS: PCP Physician Assistant; Referring Provider Physician Assistant; Visit Provider Physician Assistant
DX: E78.5 Hyperlipidemia, unspecified (principal)
CPT/HCPCS: 36415; 80053; 80061; 85025

== ENCOUNTER → 2021-10-13 13:23 | Outpatient (CLI) | payer MEDICARE, OTHER, SELFPAY ==
[2021-04-21 10:19] VITALS: BMI 26.6
== END ==
PROVIDERS: PCP Physician Assistant; Referring Provider Specialist; Visit Provider Specialist
DX: C61 Malignant neoplasm of prostate (principal)
CPT/HCPCS: 36415; 84153

== ENCOUNTER 2021-11-05 07:30 | Outpatient (RCR) | payer MEDICARE, OTHER, SELFPAY ==
[2021-10-20 10:44] VITALS: BMI 26.6
--- NOTE | 2021-10-23 12:00 | PT.OPPOC ---
Physical, Occupational & Speech Therapy At [facility] Current Diagnoses Stress incontinence (female) (male) (10/23/21) Retention of urine, unspecified (10/23/21) Unspecified symptoms and signs involving the genitourinary system (10/23/21) Visit Care Team Role Provider Type Carina Alas PA-C Family Provider Non-Staff Primary Care Provider Specialty: Medical Address: [address] [place] [address], [id number] Email: Consuelo Barbosa MD Attending Provider Physician Referring Provider Specialty: Urology Address: [address] [place] [address], [id number] Email: Plan Of Care PT-OP-T Assessment and Plan Start: 10/23/21 10:59 Freq: Status: Active Protocol: Document 10/23/21 10:30 AMB (Rec: 10/25/21 10:57 AMB [id number]) Physical Therapy Assessment Rehab Potential Rehabilitation Potential Good Evaluation Complexity Number of Personal Factors/Comorbidities 1-2 Number of Body Systems Impaired 1-2 Clinical Presentation at Evaluation Stable Impairments Impairments Functional Activities,Strength Goals Two Impairment Continence Short Term Goal (STG) Gregory will report a decrease of nocturia to 2 or less. STG Duration 4 weeks Animal Husbandman Goal (LTG) Gregory will report being able to use 2 Depends per 24 hours or less. LTG Duration 8 weeks One Impairment Pelvic floor strength Short Term Goal (STG) Gregory will be independent with a HEP to strengthen his pelvic floor. STG Duration 4 weeks Alf Goal (LTG) Gregory will contract his pelvic floor while moving from sit to stand to help prevent further leaking. LTG Duration 8 weeks Assessment Summary Assessment Gregory attends physical therapy with stress urinary incontinence to the point of wearing 3-4 Depends a day. Leaking worst with lifting/ moving from sit to stand/ coughing. While he was previously needing to self cath for his retention, he has been able to stop doing that, but his WENCESLAO sx continue now over 6 months post op. Upon biofeedback assessment, his strength was moderate and would benefit from progression . He will also benefit from behavioral modification and discussion of his nocturia. Physical Therapy Plan Frequency and Duration Frequency of Treatment 1x/Week Duration of Treatment 10 weeks Plan of Care Start Date 10/23/21 Plan of Care End Date 01/01/22 Therapeutic Interventions Therapeutic Interventions Home Exercise Program,Manual Therapy,Neuromuscular Re- education,Self-Care/Home Management,Therapeutic Activities,Therapeutic Exercises Modalities Biofeedback,Electric Stimulation Next Visit Focus/Plan Next Note Type Treatment Note Next Visit Plan progress HEP, sEMG as necessary Plan of Care Dates Plan of Care Start Date 10/23/21 Plan of Care End Date 01/01/22 Electronically Signed by: Harriet Flowers, PT 10/25/21 [id number] Please Sign and Return: I have reviewed this Plan of Care and certify that the skilled therapy services above are required to meet the patient?s needs. Physician Signature Date Printed Name and Credentials Clinical Instructor Signature Printed Name and Credentials
--- NOTE | 2021-10-23 12:00 | PT.OPPOC ---
Physical, Occupational & Speech Therapy At [facility] Current Diagnoses Stress incontinence (female) (male) (10/23/21) Retention of urine, unspecified (10/23/21) Unspecified symptoms and signs involving the genitourinary system (10/23/21) Visit Care Team Role Provider Type Carina Alas PA-C Family Provider Non-Staff Primary Care Provider Specialty: Medical Address: [address] [place] [address], [id number] Email: Consuelo Barbosa MD Attending Provider Physician Referring Provider Specialty: Urology Address: [address] [place] [address], [id number] Email: Plan Of Care PT-OP-T Assessment and Plan Start: 10/23/21 10:59 Freq: Status: Active Protocol: Document 10/23/21 10:30 AMB (Rec: 10/25/21 10:57 AMB [id number]) Physical Therapy Assessment Rehab Potential Rehabilitation Potential Good Evaluation Complexity Number of Personal Factors/Comorbidities 1-2 Number of Body Systems Impaired 1-2 Clinical Presentation at Evaluation Stable Impairments Impairments Functional Activities,Strength Goals Two Impairment Continence Short Term Goal (STG) Gregory will report a decrease of nocturia to 2 or less. STG Duration [address]ings Inspector Goal (LTG) Gregory will report being able to use 2 Depends per 24 hours or less. LTG Duration 8 weeks One Impairment Pelvic floor strength Short Term Goal (STG) Gregory will be independent with a HEP to strengthen his pelvic floor. STG Duration 4 weeks Fci Goal (LTG) Gregory will contract his pelvic floor while moving from sit to stand to help prevent further leaking. LTG Duration 8 weeks Assessment Summary Assessment Gregory attends physical therapy with stress urinary incontinence to the point of wearing 3-4 Depends a day. Leaking worst with lifting/ moving from sit to stand/ coughing. While he was previously needing to self cath for his retention, he has been able to stop doing that, but his WENCESLAO sx continue now over 6 months post op. Upon biofeedback assessment, his strength was moderate and would benefit from progression . He will also benefit from behavioral modification and discussion of his nocturia. Physical Therapy Plan Frequency and Duration Frequency of Treatment 1x/Week Duration of Treatment 10 weeks Plan of Care Start Date 10/23/21 Plan of Care End Date 01/01/22 Therapeutic Interventions Therapeutic Interventions Home Exercise Program,Manual Therapy,Neuromuscular Re- education,Self-Care/Home Management,Therapeutic Activities,Therapeutic Exercises Modalities Biofeedback,Electric Stimulation Next Visit Focus/Plan Next Note Type Treatment Note Next Visit Plan progress HEP, sEMG as necessary Plan of Care Dates Plan of Care Start Date 10/23/21 Plan of Care End Date 01/01/22 Electronically Signed by: Harriet Flowers, PT 10/25/21 [id number] Please Sign and Return: I have reviewed this Plan of Care and certify that the skilled therapy services above are required to meet the patient?s needs. Physician Signature Date Printed Name and Credentials Clinical Instructor Signature Printed Name and Credentials
--- NOTE | 2021-10-28 08:16 | PT.OTN ---
Current Diagnoses Stress incontinence (female) (male) (10/28/21) Retention of urine, unspecified (10/28/21) Unspecified symptoms and signs involving the genitourinary system (10/28/21) Physical Therapy Treatment Note PT-OP-A Visit Information Start: 10/23/21 10:33 Freq: Status: Active Protocol: Document 10/28/21 07:30 AMB (Rec: 10/28/21 08:15 AMB [id number]) Out-Patient Physical Therapy Visit Information Visit Information Visit Type Treatment Note Visit Start Time 07:30 Visit Stop Time 08:15 Total Visit Minutes 45 Visit Number 2 PT-OP-B Current Condition Start: 10/23/21 10:33 Freq: Status: Active Protocol: Document 10/23/21 10:34 AMB (Rec: 10/23/21 10:54 AMB [id number]) Current Condition History of Current Condition Onset Date 03/30/21 Current Complaints Stress urinary incontinence History of Current Condition Was having urinary retention, had TURP done, but having incontinence since. Goes through 3-4 Depends during the day, at night doesn't leak much but does get up multiple times per night to use the bathroom. Notices leaking with moving from sit to stand or lifting. Was catheterized with a leg back for a while after surgery, then was self cathing, but has since stopped . Reports light yellow urine, constipation. Treatment Goals Patient/Caregiver Goals reduce incontinence Prior Functional Status Baseline Function- ADL's Modified Independent Baseline Function- Mobility Modified Independent Baseline Function- Other was having to self cath previously Current Functional Impairments (Reported) Functional Limitations- ADL's Wears depends all day long Personal Factors Other Personal Factors That May Effect Prostate cancer Therapy/Recovery PT-OP-C Subjective Start: 10/23/21 10:33 Freq: Status: Active Protocol: Document 10/28/21 07:30 AMB (Rec: 10/28/21 08:15 AMB [id number]) OP-PT Subjective Patient Comments Patient Comments Get out of the car and start leaking, but if I contract when I get out of the car and then not leak. A few leaks coming into the appointment. Trying to do exercises about 3x/times, doing them in seated . PT-OP-I Pelvic Floor Start: 10/23/21 10:59 Freq: Status: Active Protocol: Document 10/23/21 11:07 AMB (Rec: 10/23/21 11:10 AMB [id number]) Pelvic Floor Assessment Urine Pelvic Floor Surgery Yes Urinary Symptoms Urge Sensation,Hesitancy, Incomplete Emptying,Pain Leakage Size Large Leakage Cause Cough,Exercise,Lifting,Sneeze Leaks Per Day constant Nocturia 4+ Pads Used In 24 Hours 4 Urine Pad Type Depends Bowel Bowel Symptoms Constipation SEMG (uV) Baseline 3.5 Quick Contraction 18 10 Second Contraction 13.5 Recruitment Pattern Fair Relaxation Good Holding Good Stability of Hold Fair SEMG Stability of Rest Good Comments Pelvic Floor Comments Gregory compensates slightly with abdominals when kristofer pelvic floor, but otherwise did well. PT-OP-Q Treatments Start: 10/23/21 10:59 Freq: Status: Active Protocol: Document 10/28/21 07:30 AMB (Rec: 10/28/21 08:15 AMB [id number]) Therapeutic Exercises Sitting Exercises 2 Sitting Exercise Name roll in roll out Resistance #3 band Reps/Minutes 2x10 1 Sitting Exercise Name quick flicks, long holds, kristofer when moving from sit to stand Reps/Minutes 10 min Self-Care/Home Management Treatment Education Other Education Feels like if he doesn't get up at night he will leak at night. Educated in training bladder, discussed PVR result is good, trying to use kegels to decrease urge at night. PT-OP-T Assessment and Plan Start: 10/23/21 10:59 Freq: Status: Active Protocol: Document 10/28/21 07:30 AMB (Rec: 10/28/21 08:15 AMB [id number]) Physical Therapy Assessment Assessment Summary Assessment Gregory is doing well with his exercises, but continues to have nocturia. Has been successful with tightening, but then does have to relax at some point and then leaks at that point. Follow up on roll in roll outs next visit. Physical Therapy Plan Next Visit Focus/Plan Next Note Type Treatment Note Next Visit Plan progress HEP, sEMG as necessary
--- NOTE | 2021-11-05 08:10 | PT.OTN ---
Current Diagnoses Stress incontinence (female) (male) (11/05/21) Retention of urine, unspecified (11/05/21) Unspecified symptoms and signs involving the genitourinary system (11/05/21) Physical Therapy Treatment Note PT-OP-A Visit Information Start: 10/23/21 10:33 Freq: Status: Active Protocol: Document 11/05/21 07:35 AMB (Rec: 11/05/21 08:03 AMB [id number]) Out-Patient Physical Therapy Visit Information Visit Information Visit Type Treatment Note Visit Start Time 07:30 Visit Stop Time 08:15 Total Visit Minutes 45 Visit Number 3 PT-OP-B Current Condition Start: 10/23/21 10:33 Freq: Status: Active Protocol: Document 10/23/21 10:34 AMB (Rec: 10/23/21 10:54 AMB [id number]) Current Condition History of Current Condition Onset Date 03/30/21 Current Complaints Stress urinary incontinence History of Current Condition Was having urinary retention, had TURP done, but having incontinence since. Goes through 3-4 Depends during the day, at night doesn't leak much but does get up multiple times per night to use the bathroom. Notices leaking with moving from sit to stand or lifting. Was catheterized with a leg back for a while after surgery, then was self cathing, but has since stopped . Reports light yellow urine, constipation. Treatment Goals Patient/Caregiver Goals reduce incontinence Prior Functional Status Baseline Function- ADL's Modified Independent Baseline Function- Mobility Modified Independent Baseline Function- Other was having to self cath previously Current Functional Impairments (Reported) Functional Limitations- ADL's Wears depends all day long Personal Factors Other Personal Factors That May Effect Prostate cancer Therapy/Recovery PT-OP-C Subjective Start: 10/23/21 10:33 Freq: Status: Active Protocol: Document 11/05/21 07:35 AMB (Rec: 11/05/21 08:03 AMB [id number]) OP-PT Subjective Patient Comments Patient Comments Pt states he is getting better . Has been concentrating on doing his exercises. Getting up once at night at about 3: 30am, but then can make it to about 7:30 . Sit to stand has been getting a bit better. Had appt at yesterday, just going to watch it for now. PT-OP-I Pelvic Floor Start: 10/23/21 10:59 Freq: Status: Active Protocol: Document 10/23/21 11:07 AMB (Rec: 10/23/21 11:10 AMB [id number]) Pelvic Floor Assessment Urine Pelvic Floor Surgery Yes Urinary Symptoms Urge Sensation,Hesitancy, Incomplete Emptying,Pain Leakage Size Large Leakage Cause Cough,Exercise,Lifting,Sneeze Leaks Per Day constant Nocturia 4+ Pads Used In 24 Hours 4 Urine Pad Type Depends Bowel Bowel Symptoms Constipation SEMG (uV) Baseline 3.5 Quick Contraction 18 10 Second Contraction 13.5 Recruitment Pattern Fair Relaxation Good Holding Good Stability of Hold Fair SEMG Stability of Rest Good Comments Pelvic Floor Comments Gregory compensates slightly with abdominals when kristofer pelvic floor, but otherwise did well. PT-OP-Q Treatments Start: 10/23/21 10:59 Freq: Status: Active Protocol: Document 11/05/21 07:35 AMB (Rec: 11/05/21 08:03 AMB [id number]) Therapeutic Exercises Sitting Exercises 2 Sitting Exercise Name roll in roll out Resistance #3 band Reps/Minutes 2x10 1 Sitting Exercise Name quick flicks, long holds, kristofer when moving from sit to stand Reps/Minutes 10 min Standing Exercises 1 Standing Exercise Name sit to stand Reps/Minutes 10 PT-OP-T Assessment and Plan Start: 10/23/21 10:59 Freq: Status: Active Protocol: Document 11/05/21 07:35 AMB (Rec: 11/05/21 08:03 AMB [id number]) Physical Therapy Assessment Goals Two Impairment Continence Short Term Goal (STG) Gregory will report a decrease of nocturia to 2 or less. STG Duration 4 weeks Long-Term Goal (LTG) Gregory will report being able to use 2 Depends per 24 hours or less. LTG Duration 8 weeks One Impairment Pelvic floor strength Short Term Goal (STG) Gregory will be independent with a HEP to strengthen his pelvic floor. STG Duration 4 weeks Long-Term Goal (LTG) Gregory will contract his pelvic floor while moving from sit to stand to help prevent further leaking. LTG Duration 8 weeks Assessment Summary Assessment Gregory tells the same stories at multiple appointments, but was able to contract pelvic floor while moving from sit to stand today. Overall his symptoms appear to be improving well. Physical Therapy Plan Next Visit Focus/Plan Next Note Type Treatment Note Next Visit Plan progress HEP, sEMG as necessary
--- NOTE | 2021-11-12 15:36 | PT-OP ANOTE ---
No show- called pt and left a voicemail, pt called back to clinic and explained he thinks he has the flu, but is going to get covid tested to make sure he doesn't have covid.
--- NOTE | 2021-12-24 15:44 | PT.OPDS ---
Current Diagnoses Stress incontinence (female) (male) (11/05/21) Retention of urine, unspecified (11/05/21) Unspecified symptoms and signs involving the genitourinary system (11/05/21) Visit Care Team Role Provider Type Carina Alas PA-C Family Provider Non-Staff Primary Care Provider Specialty: Medical Address: [address] [place] [address], [phone] Email: Consuelo Barbosa MD Attending Provider Physician Referring Provider Specialty: Urology Address: [address] [place] [address], [address] Email: Visit Number Visit Number 3 Discharge Summary PT-OP-B Current Condition Start: 10/23/21 10:33 Freq: Status: Active Protocol: Document 10/23/21 10:34 AMB (Rec: 10/23/21 10:54 AMB [id number]) Current Condition History of Current Condition Onset Date 03/30/21 Current Complaints Stress urinary incontinence History of Current Condition Was having urinary retention, had TURP done, but having incontinence since. Goes through 3-4 Depends during the day, at night doesn't leak much but does get up multiple times per night to use the bathroom. Notices leaking with moving from sit to stand or lifting. Was catheterized with a leg back for a while after surgery, then was self cathing, but has since stopped . Reports light yellow urine, constipation. Treatment Goals Patient/Caregiver Goals reduce incontinence Prior Functional Status Baseline Function- ADL's Modified Independent Baseline Function- Mobility Modified Independent Baseline Function- Other was having to self cath previously Current Functional Impairments (Reported) Functional Limitations- ADL's Wears depends all day long Personal Factors Other Personal Factors That May Effect Prostate cancer Therapy/Recovery PT-OP-C Subjective Start: 10/23/21 10:33 Freq: Status: Active Protocol: Document 11/05/21 07:35 AMB (Rec: 11/05/21 08:03 AMB [id number]) OP-PT Subjective Patient Comments Patient Comments Pt states he is getting better . Has been concentrating on doing his exercises. Getting up once at night at about 3: 30am, but then can make it to about 7:30 . Sit to stand has been getting a bit better. Had appt at yesterday, just going to watch it for now. PT-OP-I Pelvic Floor Start: 10/23/21 10:59 Freq: Status: Active Protocol: Document 10/23/21 11:07 AMB (Rec: 10/23/21 11:10 AMB [id number]) Pelvic Floor Assessment Urine Pelvic Floor Surgery Yes Urinary Symptoms Urge Sensation,Hesitancy, Incomplete Emptying,Pain Leakage Size Large Leakage Cause Cough,Exercise,Lifting,Sneeze Leaks Per Day constant Nocturia 4+ Pads Used In 24 Hours 4 Urine Pad Type Depends Bowel Bowel Symptoms Constipation SEMG (uV) Baseline 3.5 Quick Contraction 18 10 Second Contraction 13.5 Recruitment Pattern Fair Relaxation Good Holding Good Stability of Hold Fair SEMG Stability of Rest Good Comments Pelvic Floor Comments Gregory compensates slightly with abdominals when kristofer pelvic floor, but otherwise did well. PT-OP-T Assessment and Plan Start: 10/23/21 10:59 Freq: Status: Active Protocol: Document 12/24/21 15:42 AMB (Rec: 12/24/21 15:43 AMB [id number]) Physical Therapy Assessment Goals Two Impairment Continence Short Term Goal (STG) Gregory will report a decrease of nocturia to 2 or less. STG Duration 4 weeks Lock And Dam Equipment Repairer Goal (LTG) Gregory will report being able to use 2 Depends per 24 hours or less. LTG Duration 8 weeks One Impairment Pelvic floor strength Short Term Goal (STG) Gregory will be independent with a HEP to strengthen his pelvic floor. STG Duration 4 weeks Lock And Dam Equipment Repairer Goal (LTG) Gregory will contract his pelvic floor while moving from sit to stand to help prevent further leaking. LTG Duration 8 weeks Assessment Summary Assessment At Gregory's last PT appointment he was having some improvement in symptoms. He then called the clinic to say he would be traveling to [place] and canceled his remaining appointments, he has not been seen in almost 2 months and has not called back to the clinic to reschedule, he will therefore be discharged, but would be welcome to return with a new referral. Physical Therapy Plan Discharge Physical Therapy Discharge Reasons No Longer Attending PT
== END 2021-12-30 12:42 ==
LOC: PHYS 07:30
PROVIDERS: Family Provider Physician Assistant; PCP Physician Assistant; Referring Provider Specialist; Visit Provider Specialist
DX: N39.3 Stress incontinence (female) (male) (principal); R33.9 Retention of urine, unspecified; R39.9 Unspecified symptoms and signs involving the genitourinary system
CPT/HCPCS: 97110; 97161; 97535

== ENCOUNTER → 2022-01-25 08:08 | Outpatient (CLI) | payer MEDICARE, OTHER, SELFPAY ==
[2021-10-20 10:44] VITALS: BMI 26.6
[2022-01-25 09:23] LABS: Add Manual Diff / Slide Review NO; Basophils Absolute Auto 100 /uL (0-100); Basophils Percent Auto 1.2 % (0-2); Eosinophils Absolute Auto 100 /uL (0-450); Eosinophils Percent Auto 2.8 % (2-4); Hematocrit 35.3 % (41-53); Lymphocytes Absolute Auto 1200 /uL (1100-4500); Lymphocytes Percent Auto 26.6 % (25-40); Mean Corpuscular HGB Conc 33.8 % (30-36); Mean Corpuscular Hemoglobin 31.9 PG (26-34); Mean Corpuscular Volume 94.4 fL (80-100); Monocytes Absolute Auto 500 /uL (0-900); Monocytes Percent Auto 12.1 % (3-14); Neutrophils Absolute Auto 2500 /uL (1500-7000); Neutrophils Percent Auto 57.3 % (50-75); Platelet Count 277 X10^3/uL (150-400); Red Blood Cell Count 3.74 X10^6/uL (4.5-5.9); White Blood Cell Count 4.4 X10^3/uL (4.5-11.0)
[2022-01-25 09:55] LABS: Alanine Aminotransferase 9 IU/L (<50); Albumin 3.6 g/dL (3.5-5.0); Albumin Globulin Ratio 1.2 (1.0-2.8); Alkaline Phosphatase 77 U/L (38-126); Aspartate Aminotransferase 18 IU/L (17-59); BUN Creatinine Ratio 26.8 (6-22); Bilirubin Total 0.3 mg/dL (0.2-1.3); Blood Urea Nitrogen 26 mg/dL (9-20); Calcium 8.6 mg/dL (8.4-10.2); Carbon Dioxide 24 mmol/L (22-32); Chloride 112 mmol/L (98-107); Estimated Glomerular Filt Rate > 60 mL/min (>60); Globulin 2.9 g/dL (1.7-4.1); Glucose 94 mg/dL (80-110); HEMOLYSIS < 15 (0-50); Potassium 4.6 mmol/L (3.4-5.1); Sodium 140 mmol/L (137-145); Total Protein 6.5 g/dL (6.3-8.2)
[2022-01-25 10:24] LABS: Thyroid Stimulating Hormone 3.57 uIU/mL (0.47-4.68)
[2022-01-25 10:57] LABS: Folate 5.5 ng/mL (2.76-20.0); Vitamin B12 386 pg/mL (239-931)
== END ==
PROVIDERS: Family Provider Physician Assistant; PCP Physician Assistant; Referring Provider Physician Assistant; Visit Provider Physician Assistant
DX: R41.3 Other amnesia (principal)
CPT/HCPCS: 36415; 80053; 82607; 82746; 84443; 85025

== ENCOUNTER → 2022-02-02 07:35 | Outpatient (CLI) | payer MEDICARE, OTHER, SELFPAY ==
[2021-10-20 10:44] VITALS: BMI 26.6
--- NOTE | 2022-02-02 | DI.MRI.S_ITS ---
PROCEDURE: MR HEAD/BRAIN WO/W CON INDICATIONS: chronic cough/memory loss TECHNIQUE: Noncontrast axial T1 spin echo, axial T2 fast spin echo, sagittal and axial FLAIR, coronal T2 fast spin echo, axial gradient echo, axial diffusion and ADC through the brain. After the administration of contrast, axial and coronal 3D VIBE or T1 spin echo with fat saturation through the brain. COMPARISON: None. FINDINGS: Image quality: Excellent. CSF Spaces: Basal cisterns are patent. No extra-axial fluid collections. Ventricles are normal in size and shape. Brain: No midline shift. No intracranial bleeds or masses. No abnormal intracranial enhancement. The brainstem appears normal. Diffusion-weighted images demonstrate no acute infarct. Moderate atrophy and mild multifocal white matter chronic ischemic change present. Old lacunar infarcts noted in the left caudate nucleus Normal intravascular flow voids are present. Skull and face: Calvarial marrow is normal in signal. Orbits appear normal. Sinuses: Sinuses and mastoids appear clear. IMPRESSION: Moderate atrophy and multifocal white matter chronic ischemic change without acute infarct, hemorrhage or mass lesion. Old left basal ganglia lacunar infarcts Dictated by: Allen Schaffer M.D. on 02/02/2022 at 11:34 Approved by: Allen Schaffer M.D. on 02/02/2022 at 11:39
--- NOTE | 2022-02-02 | DI.CT.S_ITS ---
PROCEDURE: CT CHEST W CON INDICATIONS: chronic cough/memory loss TECHNIQUE: After the administration of intravenous contrast, 5 mm thick sections acquired from the pulmonary apices to the posterior costophrenic angles. 1 mm axial lung, 5 mm thick coronal and sagittal reformats and 7 mm axial MIP were acquired. For radiation dose reduction, the following was used: automated exposure control, adjustment of mA and/or kV according to patient size. COMPARISON: [facility], CT, CT CHEST ABD PEL W CON, 05/11/2021, 13:40. FINDINGS: Image quality: Excellent. Lungs and pleura: No acute air space opacities. No pleural effusions or pneumothorax. Central and peripheral airways are patent and normal in caliber. Mild perihilar airway thickening. Mediastinum: Heart size is normal. No pericardial effusion. Coronary atherosclerotic vascular calcifications are noted. No mediastinal or hilar adenopathy by size criteria. Thoracic aorta and central pulmonary arteries are normal in size. Esophagus is normal in caliber. No hiatal hernia. Bones and chest wall: No suspicious bony lesions. No vertebral body compression fractures. No axillary or supraclavicular adenopathy by size criteria. Thyroid gland is unremarkable . Abdomen: Redemonstration of left renal cyst. Remaining visualized upper abdominal structures appear unremarkable. Upper abdominal bowel loops are normal in caliber. Scattered atherosclerotic calcifications of the abdominal aorta and iliac vessels without aneurysmal dilatation. The inferior vena cava appears patent. IMPRESSION: 1. CT chest without acute cardiopulmonary abnormalities. 2. Mild bilateral perihilar airway thickening which may represent an infectious or inflammatory bronchitis. There is no focal airspace disease/consolidation identified. 3. Atherosclerosis. Dictated by: Jake Gannon M.D. on 02/02/2022 at 11:34 Approved by: Jake Gannon M.D. on 02/02/2022 at 11:39
== END ==
PROVIDERS: Family Provider Physician Assistant; PCP Physician Assistant; Referring Provider Physician Assistant; Visit Provider Physician Assistant
DX: R41.3 Other amnesia (principal); R05.3 Chronic cough; I70.0 Atherosclerosis of aorta
CPT/HCPCS: 70553; 71260; A9579; Q9967

== ENCOUNTER → 2022-04-15 08:29 | Outpatient (CLI) | payer MEDICARE, OTHER, SELFPAY ==
[2021-10-20 10:44] VITALS: BMI 26.6
[2022-04-15 12:42] LABS: Prostate Specific Antigen 0.326 ng/mL (0.10-4.00)
== END ==
PROVIDERS: Family Provider Physician Assistant; PCP Physician Assistant; Referring Provider Specialist; Visit Provider Specialist
DX: R97.20 Elevated prostate specific antigen [PSA] (principal)
CPT/HCPCS: 36415; 84153

== ENCOUNTER 2022-08-26 13:35 | Emergency (ER) | payer MEDICARE, OTHER, SELFPAY ==
[2021-10-20 10:44] VITALS: BMI 26.6
[2022-08-26 13:59] VITALS: BP 104/65; PULSE 67; RESP 18; TEMP 36.2; O2SAT 97; BMI 27.3
--- NOTE | 2022-08-26 14:13 | DI.RAD.S_ITS ---
PROCEDURE: XR CHEST 1V INDICATIONS: chest pain TECHNIQUE: One view of the chest was acquired. COMPARISON: [facility], CR, XR CHEST 2V, 10/01/2019, 8:09. FINDINGS: Surgical changes and devices: None. Lungs and pleura: Slight appearance of increased right basilar streaky opacities. Mediastinum: Mediastinal contours appear normal. Heart size is enlarged. Bones and chest wall: No suspicious bony lesions. Overlying soft tissues appear unremarkable. IMPRESSION: Slight appearance of increased streaky right basilar opacity suggestive of developing pneumonia. Dictated by: Dee Dee Deleon M.D. on 08/26/2022 at 14:48 Approved by: Dee Dee Deleon M.D. on 08/26/2022 at 14:48
--- NOTE | 2022-08-26 14:13 | DI.CT.S_ITS ---
PROCEDURE: CT HEAD/BRAIN WO CON INDICATIONS: biaterall leg weakness TECHNIQUE: Noncontrast 4.5 mm thick angled axial sections acquired from the foramen magnum to the vertex, with coronal and sagittal reformats. For radiation dose reduction, the following was used: automated exposure control, adjustment of mA and/or kV according to patient size. COMPARISON: [facility], MR, MR HEAD/BRAIN WO/W CON, 02/02/2022, 8:27. [facility], CT, HEAD WITHOUT CONTRAST, 09/17/2011, 14:22. FINDINGS: Image quality: Excellent. CSF spaces: Basal cisterns are patent. No extra-axial fluid collections. The ventricles are symmetric in size and shape. Brain: No intracranial bleeds or masses. There is cerebral volume loss for age, with resultant ventricular and sulcal prominence. There are periventricular and deep white matter chronic small vessel ischemic changes. There is intracranial internal carotid artery atherosclerosis. Skull and face: Calvarium and visualized facial bones appear intact, without suspicious lesions. Sinuses: Visualized sinuses and mastoids are clear. IMPRESSION: 1. No acute intracranial process. 2. Moderate atrophy and chronic microvascular ischemic changes. Dictated by: Dee Dee Deleon M.D. on 08/26/2022 at 15:10 Approved by: Dee Dee Deleon M.D. on 08/26/2022 at 15:11
[2022-08-26 14:55] LABS: Add Manual Diff / Slide Review NO; Basophils Absolute Auto 0 /uL (0-100); Basophils Percent Auto 0.8 % (0-2); Eosinophils Absolute Auto 100 /uL (0-450); Eosinophils Percent Auto 1.4 % (2-4); Hematocrit 40.6 % (41-53); Hemoglobin 13.7 g/dL (13.5-17.5); Lymphocytes Absolute Auto 1000 /uL (1100-4500); Lymphocytes Percent Auto 22.5 % (25-40); Mean Corpuscular HGB Conc 33.7 % (30-36); Mean Corpuscular Hemoglobin 30.9 PG (26-34); Mean Corpuscular Volume 91.8 fL (80-100); Monocytes Absolute Auto 500 /uL (0-900); Monocytes Percent Auto 10.9 % (3-14); Neutrophils Absolute Auto 3000 /uL (1500-7000); Neutrophils Percent Auto 64.4 % (50-75); Platelet Count 244 X10^3/uL (150-400); Red Blood Cell Count 4.42 X10^6/uL (4.5-5.9); White Blood Cell Count 4.7 X10^3/uL (4.5-11.0)
[2022-08-26 15:00] LABS: PTT Partial Thromboplastin Tim 30 SECONDS (26-36)
[2022-08-26 16:16] VITALS: BP 176/90
[2022-08-26 16:17] VITALS: PULSE 57; RESP 18; O2SAT 99
[2022-08-26 16:31] LABS: Alanine Aminotransferase 20 IU/L (<50); Albumin Globulin Ratio 1.2 (1.0-2.8); Alkaline Phosphatase 71 U/L (38-126); Aspartate Aminotransferase 24 IU/L (17-59); BUN Creatinine Ratio 20.6 (6-22); Bilirubin Total 0.3 mg/dL (0.2-1.3); Blood Urea Nitrogen 20 mg/dL (9-20); Carbon Dioxide 27 mmol/L (22-32); Chloride 105 mmol/L (98-107); Creatine Kinase 133 U/L (55-170); Estimated Glomerular Filt Rate > 60 mL/min (>60); Globulin 3.4 g/dL (1.7-4.1); Glucose 92 mg/dL (80-110); HEMOLYSIS < 15 (0-50); Lipase 117 U/L (23-300); Magnesium 2.5 mg/dL (1.6-2.3); Potassium 4.6 mmol/L (3.4-5.1); Sodium 138 mmol/L (137-145); Total Protein 7.4 g/dL (6.3-8.2)
[2022-08-26 16:42] LABS: Troponin I < 0.012 ng/mL (0.01-0.034)
[2022-08-26 16:46] LABS: CKMB % Relative Index 0.9 % (1.5-5.0); Creatine Kinase MB 1.21 ng/mL (<2.37)
[2022-08-26 16:47] VITALS: BP 149/70; PULSE 59; RESP 20; O2SAT 98
--- NOTE | 2022-08-26 16:53 | ED_ITS ---
HPI - Neuro Symptoms/Deficit General Chief Complaint: Neuro Symptoms/Deficit Stated Complaint: SOB, Balance problems Time Seen by Provider: 08/26/22 16:53 Source: patient Mode of arrival: Wheelchair Limitations: no limitations History of Present Illness HPI Narrative: This is a 68-year-old male with recently diagnosed dementia, popliteal aneurysm with repair approximately 10-12 years ago and prostate cancer who is on Lupron, and prior OH secondary to carbon monoxide and altitude exposure in 2018 and takes aspirin twice daily for leg cramping. Patient presents today with sensation of feeling generally weak and unwell, no fevers or chills or diaphoresis. Patient denies headache. Denies chest pain or pressure but felt short of breath. He denies any nausea or vomiting he is had cough that has had white productive sputum. He states the cough has been present for a little while and he has been taking Mucinex twice daily for it. Patient denies diarrhea constipation. No dysuria urgency frequency. [place] balance. He denies vertigo symptoms. He denies new weakness on 1 side versus the other but had mu scle cramps in his bilateral legs. Patient states he had his tonsils out when he was younger, he had popliteal aneurysm repair and has some residual sensation with cramping and issues in his left leg from that. He denies allergies to medications. No tobacco recently, former smoker, no alcohol or illicit. He is accompanied by his . On Anticoagulants: No Related Data Home Medications Medication Instructions Recorded Confirmed acetaminophen 650 mg 1,300 mg PO Q12H PRN 10/20/21 10/20/22 tablet,extended release (Tylenol Arthritis Pain) aspirin 81 mg chewable tablet 81 mg PO DAILY 10/20/21 10/20/22 Allergies Allergy/AdvReac Type Severity Reaction Status Date / Time No Known Drug Allergies Allergy Verified 10/20/22 08:11 Review of Systems Review of Systems ROS Unobtainable: All systems reviewed & are unremarkable except as noted in HPI and below Hematologic/Lymphatic On Anticoagulants: No Patient History Medical History (Updated 10/20/22 @ 09:04 by Consuelo Barbosa MD) BPH (benign prostatic hyperplasia) HLD (hyperlipidemia) HTN (hypertension) Osteopenia Popliteal aneurysm Prostate cancer Prostate cancer metastatic to bone WENCESLAO (stress urinary incontinence), male Urinary retention Surgical History H/O cataract removal with insertion of prosthetic lens H/O hernia repair History of appendectomy Hx of cystoscopy (03/24/21) S/P aneurysm repair Family History Mother Uterine cancer Father CVA (cerebral vascular accident) Brother Heart attack Social History marital status: number of children: 1 household members: spouse Smoking Status: Former smoker Tobacco: How many years used: 6 alcohol intake: current caffeine: Yes Smoking Status: Former smoker alcohol intake frequency: 0-2 drinks per day Substance Use Type: does not use Exam Narrative Exam Narrative: GENERAL: Alert and oriented, patient does defer questions to his but can answer the majority of the history on his own. Clear speech. HEENT: Head normocephalic, atraumatic, EOMI, pupils reactive, face symmetric, moist mucous membranes NECK: Supple, full range of motion CARDIOVASCULAR: Regular rate and rhythm without murmurs, rubs or gallops. RESPIRATORY: Breath sounds equal bilaterally, no wheezes rales or rhonchi. No tachypnea or accessory muscle use. ABDOMEN: Soft, nontender. Normoactive bowel sounds all 4 quadrants. No guarding or rebound, rigidity, no mass : No CVA tenderness EXTREMITIES: Normal range of motion, no clubbing or edema. Neurovascularly intact NEUROLOGICAL: Cranial nerves II through XII grossly intact. Moving all extremities. 5/5 muscle strength in upper and lower extremities. Patient ambulated to the bathroom without issue. SKIN: Warm, dry, no petechiae, no rashes or lesions. Initial Vital Signs Initial Vital Signs: Vital Signs Temperature 97.2 F L 08/26/22 13:59 Pulse Rate 67 08/26/22 13:59 Respiratory Rate 18 08/26/22 13:59 Blood Pressure 104/65 08/26/22 13:59 Pulse Oximetry 97 08/26/22 13:59 Oxygen Delivery Method 08/26/22 13:59 Course Orders Ordered: Discontinued Medications Aspirin (Aspirin 81 Mg Chew Tab) 324 mg PO NOW ONE Stop: 08/26/22 14:13 Last Admin: 08/26/22 14:47 Dose: Not Given Documented By: JOSE Vital Signs Vital signs: Vital Signs - 8 hr 08/26/22 13:59 08/26/22 16:16 08/26/22 16:17 Temperature 97.2 F L Pulse Rate 67 57 L Respiratory Rate 18 18 Blood Pressure 104/65 176/90 H Pulse Oximetry 97 99 Oxygen Delivery Method Room Air Room Air 08/26/22 16:47 08/26/22 16:47 08/26/22 17:00 Temperature Pulse Rate 59 L Respiratory Rate 20 Blood Pressure 149/70 H 136/64 Pulse Oximetry 98 Oxygen Delivery Method 08/26/22 17:00 08/26/22 17:30 08/26/22 17:30 Temperature Pulse Rate 52 L 61 Respiratory Rate 23 22 Blood Pressure 149/87 H Pulse Oximetry 98 Oxygen Delivery Method Room Air MDM - Neuro Symptoms/Deficit Lab Data Result diagrams: 08/26/22 14:35 08/26/22 16:06 Labs: Lab Results 08/26/22 08/26/22 08/26/22 Range/Units 14:35 14:35 16:06 WBC 4.7 (4.5-11.0) X10^3/uL RBC 4.42 L (4.5-5.9) X10^6/uL Hgb 13.7 (13.5-17.5) g/dL Hct 40.6 L (41-53) % MCV 91.8 (80-100) fL MCH 30.9 (26-34) PG MCHC 33.7 (30-36) % RDW 14.0 (11.6-14.8) % Plt Count 244 (150-400) X10^3/uL Neut % (Auto) 64.4 (50-75) % Lymph % (Auto) 22.5 L (25-40) % [place] % (Auto) 10.9 (3-14) % Eos % (Auto) 1.4 L (2-4) % Baso % (Auto) 0.8 (0-2) % Neut # (Auto) 3000 (4501-9470) /uL Lymph # (Auto) 1000 L (1784-6146) /uL [place] # (Auto) 500 (0-900) /uL Eos # (Auto) 100 (0-450) /uL Baso # (Auto) 0 (0-100) /uL PT 11.0 (10.1-12.7) SECONDS INR 1.0 (0.9-1.3) APTT 30 (26-36) SECONDS Sodium 138 (137-145) mmol/L Potassium 4.6 (3.4-5.1) mmol/L Chloride 105 (98-107) mmol/L Carbon Dioxide 27 (22-32) mmol/L BUN 20 (9-20) mg/dL Creatinine 0.97 (0.66-1.25) mg/dL Estimated GFR > 60 (>60) mL/min BUN/Creatinine Ratio 20.6 (6-22) Glucose 92 (80-110) mg/dL Calcium 9.0 (8.4-10.2) mg/dL Magnesium 2.5 H (1.6-2.3) mg/dL Total Bilirubin 0.3 (0.2-1.3) mg/dL AST 24 (17-59) IU/L ALT 20 (<50) IU/L Alkaline Phosphatase 71 (38-126) U/L Total Creatine Kinase 133 (55-170) U/L CK-MB (CK-2) 1.21 (<2.37) ng/mL CK-MB (CK-2) Rel Index 0.9 L (1.5-5.0) % Troponin I < 0.012 (0.01-0.034) ng/mL Total Protein 7.4 (6.3-8.2) g/dL Albumin 4.0 (3.5-5.0) g/dL Globulin 3.4 (1.7-4.1) g/dL Albumin/Globulin Ratio 1.2 (1.0-2.8) Lipase 117 (23-300) U/L Urine RBC (0-5/HPF) Urine WBC (0-5/HPF) Ur Squamous Epith Cells (0-5/HPF) Urine Bacteria (None) Ur Culture Indicated? SARS-CoV-2 (PCR) (Negative) 08/26/22 08/26/22 Range/Units 16:40 16:45 WBC (4.5-11.0) X10^3/uL RBC (4.5-5.9) X10^6/uL Hgb (13.5-17.5) g/dL Hct (41-53) % MCV (80-100) fL MCH (26-34) PG MCHC (30-36) % RDW (11.6-14.8) % Plt Count (150-400) X10^3/uL Neut % (Auto) (50-75) % Lymph % (Auto) (25-40) % [place] % (Auto) (3-14) % Eos % (Auto) (2-4) % Baso % (Auto) (0-2) % Neut # (Auto) (7380-1441) /uL Lymph # (Auto) (5422-6686) /uL [place] # (Auto) (0-900) /uL Eos # (Auto) (0-450) /uL Baso # (Auto) (0-100) /uL PT (10.1-12.7) SECONDS INR (0.9-1.3) APTT (26-36) SECONDS Sodium (137-145) mmol/L Potassium (3.4-5.1) mmol/L Chloride (98-107) mmol/L Carbon Dioxide (22-32) mmol/L BUN (9-20) mg/dL Creatinine (0.66-1.25) mg/dL Estimated GFR (>60) mL/min BUN/Creatinine Ratio (6-22) Glucose (80-110) mg/dL Calcium (8.4-10.2) mg/dL Magnesium (1.6-2.3) mg/dL Total Bilirubin (0.2-1.3) mg/dL AST (17-59) IU/L ALT (<50) IU/L Alkaline Phosphatase (38-126) U/L Total Creatine Kinase (55-170) U/L CK-MB (CK-2) (<2.37) ng/mL CK-MB (CK-2) Rel Index (1.5-5.0) % Troponin I (0.01-0.034) ng/mL Total Protein (6.3-8.2) g/dL Albumin (3.5-5.0) g/dL Globulin (1.7-4.1) g/dL Albumin/Globulin Ratio (1.0-2.8) Lipase (23-300) U/L Urine RBC None seen (0-5/HPF) Urine WBC 0-1/hpf (0-5/HPF) Ur Squamous Epith Cells None seen (0-5/HPF) Urine Bacteria None seen (None) Ur Culture Indicated? Cult not indicated SARS-CoV-2 (PCR) Negative (Negative) Urine Dip Bedside Urine Glucose Negative Bedside Urine Bilirubin + 1 Bedside Urine Ketone - Negative Urine Specific Tea 1.030 Bedside Urine Occult Blood - Negative Bedside Urine pH 6.0 Bedside Urine Protein +/- 15 Bedside Urine Urobilinogen - Negative Bedside Urine Nitrite - Negative Bedside Urine Leukocytes - Negative Esterase Imaging Data Chest x-ray: Radiologist's Impression: [address] [address] XRay Report Signed Patient: Gregory Colvin MR#: [id number] : 1945 Acct:[id number] Age/Sex: 76 / M Date of Service: 08/26/22 Loc: ED Accession Number: [id number] ?? Procedure: XR chest 1V Ordering Provider: Loretta Portillo D.O. PROCEDURE:? XR CHEST 1V ? INDICATIONS:? chest pain ? TECHNIQUE:? One view of the chest was acquired.? ? COMPARISON:? [facility], , XR CHEST 2V, 10/01/2019, 8:09. ? FINDINGS:? ? Surgical changes and devices:? None.? ? Lungs and pleura:? Slight appearance of increased right basilar streaky opacities. ? Mediastinum:? Mediastinal contours appear normal.? Heart size is enlarged. ? Bones and chest wall:? No suspicious bony lesions.? Overlying soft tissues appear unremarkable.? ? IMPRESSION:? Slight appearance of increased streaky right basilar opacity suggestive of developing pneumonia. ? ? Dictated by: Dee Dee Deleon M.D. on 08/26/2022 at 14:48 ? ? Approved by: Dee Dee Deleon M.D. on 08/26/2022 at 14:48?? CT scan - head: Radiologist's Impression: [address] [address] [address] Scan Report Signed Patient: Gregory Colvin MR#: [id number] : 1945 Acct:[id number] Age/Sex: 76 / M Date of Service: 08/26/22 Loc: ED Accession Number: [id number] ?? Procedure: CT head/brain wo con Ordering Provider: Loretta Portillo D.O. PROCEDURE:? CT HEAD/BRAIN WO CON ? INDICATIONS:? biaterall leg weakness ? TECHNIQUE:? Noncontrast 4.5 mm thick angled axial sections acquired from the foramen magnum to the vertex, with coronal and sagittal reformats.? For radiation dose reduction, the following was used:? automated exposure control, adjustment of mA and/or kV according to patient size.? ? COMPARISON:? [facility], MR, MR HEAD/BRAIN WO/W CON, 02/02/2022, 8:27.? [facility], CT, HEAD WITHOUT CONTRAST, 09/17/2011, 14:22. ? FINDINGS:? Image quality:? Excellent.? ? CSF spaces:? Basal cisterns are patent.? No extra-axial fluid collections.? The ventricles are symmetric in size and shape.? ? Brain:? No intracranial bleeds or masses.? There is cerebral volume loss for age, with resultant ventricular and sulcal prominence.? There are periventricular and deep white matter chronic small vessel ischemic changes.? There is intracranial internal carotid artery atherosclerosis.? ? Skull and face:? Calvarium and visualized facial bones appear intact, without suspicious lesions.? ? Sinuses:? Visualized sinuses and mastoids are clear.? ? IMPRESSION:? ? 1. No acute intracranial process. ? 2. Moderate atrophy and chronic microvascular ischemic changes. ? ? ? Dictated by: Dee Dee Deleon M.D. on 08/26/2022 at 15:10 ? ? Approved by: Dee Dee Deleon M.D. on 08/26/2022 at 15:11?? ECG Data Attestation: I personally reviewed and interpreted this ECG as follows: Prior ECG tracings: available for review Interpretation: Sinus rhythm occasional PVC rate of 64 [place] 194 QRS 88 QTC 435. Patient has prior EKG from 11/09/2016 with no acute dynamic changes. MDM Narrative Medical decision making narrative: This is 76-year-old male with complaint of shortness of breath persistent cough with clear productive sputum, shortness of breath feeling weak and off today he had cramping in both legs. Labs are overall reassuring chest x-ray shows possible pneumonia, CT head was obtained but is negative. Point of care urine is negative for infection magnesium is elevated at 2.5. Patient does not take any supplementation. Plan to treat pneumonia for possible infection. Patient had COVID swab which was negative, offered influenza swab but they prefer to return home. We did discuss that he would be in the window for Tamiflu but they would defer taking this if he was positive. Discharge Plan Departure Patient Disposition: Home Clinical Impression: Pneumonia Instructions: DI for Pneumonia -- Adult Activity Restrictions/Additional Instructions: Your imaging shows suspicion for pneumonia. We did test you for COVID today which is negative but did not test you for influenza A which we are seeing a lot of in the community. Please take antibiotics until completely gone. [facility] [place]. You may continue your home medications as prescribed. You can take Tylenol up to a 1000 mg every 6 hours as needed for pain or muscle aches. Please return for rapidly worsening symptoms, new confusion, chest pain, shortness of breath, passing out, persistent vomiting, new weakness, loss of bowel or bladder control or other new or concerning changes. Prescriptions: No Action aspirin 81 mg tablet,chewable 81 mg PO DAILY acetaminophen [Tylenol Arthritis Pain] 650 mg tablet extended release 1,300 mg PO Q12H PRN Referrals: Carina Alas PA-C [Primary Care Provider] - Visit Report Forms: Patient Portal/API
[2022-08-26 17:00] VITALS: BP 136/64; PULSE 52; RESP 23; O2SAT 98
[2022-08-26 17:30] VITALS: BP 149/87; PULSE 61; RESP 22
[2022-08-26 17:33] LABS: COVID19 -Nasal RAPID Negative (Negative)
[2022-08-26 17:36] LABS: Bacteria Urine None Seen; Culture Indicated Urine Cult Not Indicated; RBC Urine None Seen (0-5/HPF); Squamous Epithelial Cell Urine None Seen (0-5/HPF); WBC Urine 0-1/HPF (0-5/HPF)
== END 2022-08-26 18:09 | disposition home or self-care (01) ==
PROVIDERS: Emergency Provider Emergency Medicine; Family Provider Physician Assistant; PCP Physician Assistant
DX: J18.9 Pneumonia, unspecified organism (principal); R07.9 Chest pain, unspecified; R25.2 Cramp and spasm; Z20.822 Contact with and (suspected) exposure to COVID-19
CPT/HCPCS: 36415; 70450; 71045; 80053; 81003; 81015; 82550; 82553; 83690; 83735; 84484; 85025; 85610; 85730; 87635; 93005; 99284; C9803

== ENCOUNTER → 2022-09-15 07:56 | Outpatient (CLI) | payer MEDICARE, OTHER, SELFPAY ==
[2021-10-20 10:44] VITALS: BMI 26.6
--- NOTE | 2022-09-15 08:00 | DI.CT.S_ITS ---
PROCEDURE: CT CHEST ABD PEL W CON INDICATIONS: PROSTATE CANCER TECHNIQUE: After the administration of oral and intravenous contrast, axial sections acquired from the supraclavicular neck to the pubic symphysis. Coronal and sagittal reformats were performed. For radiation dose reduction, the following was used: automated exposure control, adjustment of mA and/or kV according to patient size. COMPARISON: [facility], CT, CT CHEST W CON, 02/02/2022, 7:53. [facility], CT, CT CHEST ABD PEL W CON, 05/11/2021, 13:40. FINDINGS: Image quality: Good Lungs and pleura: Scattered scarring/atelectasis. No pleural effusions. No overtly suspicious pulmonary nodule. Mediastinum, heart, and esophagus: No hiatal hernia. Borderline cardiomegaly. Coronary calcifications. No pathologic adenopathy by size criteria. Chest wall and thyroid: Unremarkable Solid organs: Liver is unremarkable. No pathologic dilation of the biliary tree or pancreatic duct. The gallbladder is unremarkable. No splenomegaly. No adrenal nodules. Bosniak 1 and 2 renal lesions are present, for which no dedicated followup is necessary per 2019 proposed guidelines. No hydronephrosis. Vessels and lymph nodes: The main portal vein is patent. 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 No pathologic adenopathy by size criteria. Bowel and peritoneum: No bowel obstruction. No pathologic ascites. Moderate fecal loading. Body wall: Tiny fat containing midline hernia above the umbilicus. Fat containing left inguinal hernia. Pelvis: Prostatectomy. Overall similar soft tissue thickening around the prostatectomy bed since 2020. Bladder is under distended, overall unremarkable. Bones: Degenerative changes. No suspicious osseous lesion. IMPRESSION: No active metastases identified. Stable/incidental findings are described above. Soft tissue thickening at the prostatectomy bed seems stable and should be followed closely on subsequent imaging and laboratory evaluation. No enlarged lymph nodes by size criteria. Dictated by: Jerrod Nugent M.D. on 09/15/2022 at 10:22 Approved by: Jerrod Nugent M.D. on 09/15/2022 at 10:31
[2022-09-15 09:29] LABS: Add Manual Diff / Slide Review NO; Basophils Absolute Auto 0 /uL (0-100); Basophils Percent Auto 1.3 % (0-2); Eosinophils Absolute Auto 100 /uL (0-450); Eosinophils Percent Auto 2.9 % (2-4); Hematocrit 38.4 % (41-53); Lymphocytes Absolute Auto 1200 /uL (1100-4500); Lymphocytes Percent Auto 32.5 % (25-40); Mean Corpuscular HGB Conc 33.8 % (30-36); Mean Corpuscular Hemoglobin 31.4 PG (26-34); Mean Corpuscular Volume 92.7 fL (80-100); Monocytes Absolute Auto 400 /uL (0-900); Monocytes Percent Auto 12.4 % (3-14); Neutrophils Absolute Auto 1800 /uL (1500-7000); Neutrophils Percent Auto 50.9 % (50-75); Platelet Count 229 X10^3/uL (150-400); Red Blood Cell Count 4.14 X10^6/uL (4.5-5.9); Red Cell Distribution Width 14.3 % (11.6-14.8); White Blood Cell Count 3.5 X10^3/uL (4.5-11.0)
[2022-09-15 10:01] LABS: Alanine Aminotransferase 17 IU/L (<50); Albumin Globulin Ratio 1.5 (1.0-2.8); Alkaline Phosphatase 74 U/L (38-126); Aspartate Aminotransferase 20 IU/L (17-59); BUN Creatinine Ratio 26.6 (6-22); Bilirubin Total 0.3 mg/dL (0.2-1.3); Blood Urea Nitrogen 21 mg/dL (9-20); Calcium 8.7 mg/dL (8.4-10.2); Carbon Dioxide 22 mmol/L (22-32); Chloride 109 mmol/L (98-107); Cholesterol 216 mg/dL (140-199); Estimated Glomerular Filt Rate > 60 mL/min (>60); Globulin 2.7 g/dL (1.7-4.1); Glucose 84 mg/dL (80-110); HDL Cholesterol 64 mg/dL (40-60); HEMOLYSIS 17 (0-50); LDL Cholesterol Calculated 138 mg/dL (<100); Potassium 4.6 mmol/L (3.4-5.1); Sodium 138 mmol/L (137-145); Total Protein 6.7 g/dL (6.3-8.2); Triglycerides 71 mg/dL (35-150)
[2022-09-15 11:45] LABS: TSH w/ Reflex to FT4 1.96 uIU/mL (0.47-4.68)
== END ==
PROVIDERS: Family Provider Physician Assistant; PCP Physician Assistant; Referring Provider Family Medicine; Visit Provider Family Medicine
DX: C61 Malignant neoplasm of prostate (principal); M62.81 Muscle weakness (generalized); K40.90 Unilateral inguinal hernia, without obstruction or gangrene, not specified as recurrent; I25.10 Atherosclerotic heart disease of native coronary artery without angina pectoris; E78.5 Hyperlipidemia, unspecified; R53.83 Other fatigue; R35.0 Frequency of micturition; R03.0 Elevated blood-pressure reading, without diagnosis of hypertension
CPT/HCPCS: 36415; 71260; 74177; 80053; 80061; 82043; 82570; 84443; 85025; Q9967

== ENCOUNTER → 2022-10-19 08:10 | Outpatient (CLI) | payer MEDICARE, OTHER, SELFPAY ==
[2021-10-20 10:44] VITALS: BMI 26.6
[2022-10-19 09:55] LABS: Prostate Specific Antigen 3.17 ng/mL (0.10-4.00)
== END ==
PROVIDERS: Family Provider Physician Assistant; PCP Family Medicine; Referring Provider Specialist; Visit Provider Specialist
DX: C61 Malignant neoplasm of prostate (principal); R39.9 Unspecified symptoms and signs involving the genitourinary system
CPT/HCPCS: 36415; 84153

== ENCOUNTER → 2022-12-03 18:00 | Outpatient (CLI) | payer MEDICARE, OTHER, SELFPAY ==
[2022-10-20 09:15] VITALS: BMI 26.6
[2022-12-03 18:54] LABS: Influenza A - CEPHEID Flu A NEGATIVE (NEGATIVE); Influenza B - CEPHEID Flu B NEGATIVE (NEGATIVE); Respiratory Syncytial Virus Negative (Negative)
[2022-12-03 18:57] LABS: COVID-19 CEPHEID 4-PLEX PCR Negative (Negative)
== END ==
PROVIDERS: Family Provider Physician Assistant; PCP Family Medicine; Visit Provider Student in an Organized Health Care Education/Training Program
DX: R05.9 Cough, unspecified (principal)
CPT/HCPCS: 0241U

== ENCOUNTER → 2022-12-03 18:10 | Outpatient (CLI) | payer MEDICARE, OTHER, SELFPAY ==
[2022-10-20 09:15] VITALS: BMI 26.6
--- NOTE | 2022-12-03 18:12 | DI.RAD.S_ITS ---
PROCEDURE: XR CHEST 2V INDICATIONS: cough greater than three weeks TECHNIQUE: 2 views of the chest were acquired. COMPARISON: [facility], CT, CT CHEST ABD PEL W CON, 09/15/2022, 9:38. [facility], CR, XR CHEST 1V, 08/26/2022, 14:36. FINDINGS: Surgical changes and devices: None. Lungs and pleura: Lungs are clear. No pleural effusions or pneumothorax. Mediastinum: The cardiac contours are within normal limits. The aorta demonstrates calcification and tortuosity. Bones and chest wall: No suspicious bony abnormalities. Soft tissues appear unremarkable. IMPRESSION: Clear lungs, without infiltrates. Dictated by: Jassi Saleem M.D. on 12/03/2022 at 17:35 Approved by: Jassi Saleem M.D. on 12/03/2022 at 17:36
== END ==
PROVIDERS: Family Provider Physician Assistant; PCP Family Medicine; Referring Provider Student in an Organized Health Care Education/Training Program; Visit Provider Student in an Organized Health Care Education/Training Program
DX: R05.8 Other specified cough (principal)
CPT/HCPCS: 0241U; 71046

== ENCOUNTER → 2023-02-24 09:35 | Outpatient (CLI) | payer MEDICARE, OTHER, SELFPAY ==
[2022-10-20 09:15] VITALS: BMI 26.6
[2023-02-24 13:01] LABS: Blood Urea Nitrogen 18 mg/dL (9-20); Calcium 8.8 mg/dL (8.4-10.2); Carbon Dioxide 27 mmol/L (22-32); Chloride 104 mmol/L (98-107); Cholesterol 247 mg/dL (140-199); Estimated Glomerular Filt Rate > 60 mL/min (>60); Glucose 69 mg/dL (80-110); HDL Cholesterol 56 mg/dL (40-60); HEMOLYSIS < 15 (0-50); LDL Cholesterol Calculated 162 mg/dL (<100); Potassium 4.3 mmol/L (3.4-5.1); Sodium 139 mmol/L (137-145); Triglycerides 147 mg/dL (35-150)
== END ==
PROVIDERS: Family Provider Physician Assistant; PCP Family Medicine; Referring Provider Internal Medicine Cardiovascular Disease; Visit Provider Internal Medicine Cardiovascular Disease
DX: E78.2 Mixed hyperlipidemia (principal); I10 Essential (primary) hypertension
CPT/HCPCS: 36415; 80048; 80061

== ENCOUNTER → 2023-04-07 08:39 | Outpatient (CLI) | payer MEDICARE, OTHER, SELFPAY ==
[2022-10-20 09:15] VITALS: BMI 26.6
[2023-04-07 10:42] LABS: Prostate Specific Antigen 0.529 ng/mL (0.10-4.00)
== END ==
PROVIDERS: Family Provider Physician Assistant; PCP Family Medicine; Referring Provider Specialist; Visit Provider Specialist
DX: C61 Malignant neoplasm of prostate (principal); C79.51 Secondary malignant neoplasm of bone
CPT/HCPCS: 36415; 84153

== ENCOUNTER → 2023-09-14 12:42 | Outpatient (CLI) | payer MEDICARE, OTHER, SELFPAY ==
[2022-10-20 09:15] VITALS: BMI 26.6
== END ==
PROVIDERS: Family Provider Physician Assistant; PCP Family Medicine; Referring Provider Specialist; Visit Provider Specialist
DX: C61 Malignant neoplasm of prostate (principal); C79.51 Secondary malignant neoplasm of bone
CPT/HCPCS: 36415; 84153

== ENCOUNTER 2023-10-29 13:53 | Emergency (ER) | payer MEDICARE, OTHER, SELFPAY ==
[2022-10-20 09:15] VITALS: BMI 26.6
[2023-10-29] VITALS (10 sets, daily range): BP systolic 168–205; BP diastolic 82–97; PULSE 52–70; RESP 14–30; TEMP 36.9; O2SAT 95–99; BMI 27.3
--- NOTE | 2023-10-29 14:08 | DI.RAD.S_ITS ---
PROCEDURE: XR SHOULDER LT MIN 2V INDICATIONS: L SHOULDER PAIN, HX PROSTATE CA TECHNIQUE: 3 views of the shoulder were acquired. COMPARISON: None. FINDINGS: Bones: No fractures or dislocations. No suspicious bony lesions. Visualized ribs appear intact. Whole severe glenohumeral joint space narrowing with inferior osteophyte. No remodeling. Soft tissues: No suspicious soft tissue calcifications. IMPRESSION: Advanced glenohumeral osteoarthritis. No lytic or blastic lesions Approved by: Allen Schaffer M.D. on 10/29/2023 at 15:59
--- NOTE | 2023-10-29 14:09 | ED_ITS ---
HPI - Dizziness General Chief Complaint: Dizziness Stated Complaint: numbness in left arm/ dizzy Time Seen by Provider: 10/29/23 13:58 Source: patient Mode of arrival: Ambulatory History of Present Illness HPI Narrative: 77yoM presents with for L arm pain/numbness as well as lighheadedness. History obtained with help of , as patient has mild dementia. states that several months ago the patient injured his left arm after moving multiple heavy objects. They only recently had a tele health visit with his primary care physician, who recommended physical therapy, but no imaging was obtained. The patient's pain/numbness has been ongoing for several months, this is not new today. Patient states that the pain made him lightheaded today, which prompted their visit. states that they are about to move back to [place] for several months, and their primary care physician we will give a referral to physical therapy when they arrive in [place]. Related Data Home Medications Medication Instructions Recorded Confirmed acetaminophen 650 mg 1,300 mg PO Q12H PRN 10/20/21 10/29/23 tablet,extended release (Tylenol Arthritis Pain) aspirin 81 mg chewable tablet 81 mg PO DAILY 10/20/21 10/29/23 diphenhydramine HCl 25 mg capsule 25 mg PO TID PRN 04/27/23 10/29/23 (Benadryl) donepezil 10 mg tablet 10 mg PO DAILY 04/27/23 10/29/23 losartan 25 mg tablet 25 mg PO DAILY 04/27/23 10/29/23 magnesium 400 mg PO 04/27/23 10/29/23 Previous Rx's Medication Instructions Recorded benzonatate 100 mg capsule 100 mg PO TID PRN cough 7 days #21 12/03/22 caps apalutamide 60 mg tablet (Erleada) 120 mg (2 x 60 mg) PO DAILY #60 05/13/23 tabs Allergies Allergy/AdvReac Type Severity Reaction Status Date / Time No Known Drug Allergies Allergy Verified 10/29/23 14:05 Review of Systems Review of Systems Narrative: Negative except as noted above Patient History Medical History Prostate cancer metastatic to bone WENCESLAO (stress urinary incontinence), male Urinary retention HLD (hyperlipidemia) HTN (hypertension) Osteopenia BPH (benign prostatic hyperplasia) Prostate cancer Popliteal aneurysm Surgical History Hx of cystoscopy (03/24/21) History of appendectomy H/O cataract removal with insertion of prosthetic lens S/P aneurysm repair H/O hernia repair Family History Mother Uterine cancer Father CVA (cerebral vascular accident) Brother Heart attack Social History marital status: number of children: 1 household members: spouse Smoking Status: Former smoker Tobacco: How many years used: 6 alcohol intake: current caffeine: Yes Smoking Status: Former smoker alcohol intake frequency: holidays/special occasions only Substance Use Type: does not use Exam Initial Vital Signs Initial Vital Signs: Vital Signs Temperature 98.4 F 10/29/23 13:55 Pulse Rate 70 10/29/23 13:55 Respiratory Rate 14 10/29/23 13:55 Blood Pressure 205/95 H 10/29/23 13:55 Pulse Oximetry 96 10/29/23 13:55 Oxygen Delivery Method Room Air 10/29/23 13:55 Const: Awake, alert, no acute distress, nontoxic appearing Cardiac: regular rate, regular rhythm RESP: unlabored, clear bilaterally, no wheezing GI: Atraumatic, soft, nontender, nondistended, no rebound, no guarding MSK: No reproducible tenderness to palpation. Decreased Tricep extension LUE. Equal strength biceps/mentally retarded teacher bilaterally Skin: Warm, Dry, intact, no rashes Neuro: AO x3, CN II-XII grossly intact, moves all extremities Course Orders Ordered: ED Orders 10/29/23 14:07 EKG-12 Lead Stat 10/29/23 14:08 XR shoulder LT min 2V Stat 10/29/23 14:12 CBC Auto Diff [Complete Blood Count AUTO DIFF] Stat CMP [Comprehensive Metabolic Panel] Stat 10/29/23 14:56 UA Complete [Urinalysis and Microscopic] Stat Vital Signs Vital signs: Vital Signs - 8 hr 10/29/23 13:55 10/29/23 14:03 10/29/23 14:03 Temperature 98.4 F Pulse Rate 70 68 Respiratory Rate 14 Blood Pressure 205/95 H 205/95 H Pulse Oximetry 96 98 Oxygen Delivery Method Room Air 10/29/23 15:02 10/29/23 15:03 10/29/23 15:03 Temperature Pulse Rate 57 L 57 L Respiratory Rate Blood Pressure 187/86 H Pulse Oximetry 96 96 Oxygen Delivery Method 10/29/23 15:30 10/29/23 15:30 10/29/23 16:04 Temperature Pulse Rate 56 L 56 L Respiratory Rate 20 Blood Pressure 171/84 H 168/82 H Pulse Oximetry 95 95 Oxygen Delivery Method Room Air 10/29/23 16:19 10/29/23 16:21 10/29/23 16:21 Temperature Pulse Rate 53 L 55 L Respiratory Rate 30 H Blood Pressure 196/97 H Pulse Oximetry 96 99 Oxygen Delivery Method 10/29/23 16:30 10/29/23 16:30 Temperature Pulse Rate 52 L Respiratory Rate 25 H Blood Pressure 199/91 H Pulse Oximetry 98 Oxygen Delivery Method MDM - Dizziness Lab Data 10/29/23 14:12 10/29/23 14:12 Labs: Lab Results 10/29/23 10/29/23 Range/Units 14:12 14:56 WBC 5.3 (4.5-11.0) X10^3/uL RBC 3.94 L (4.5-5.9) X10^6/uL Hgb 12.4 L (13.5-17.5) g/dL Hct 37.3 L (41-53) % MCV 94.8 (80-100) fL MCH 31.4 (26-34) PG MCHC 33.1 (30-36) % RDW 13.4 (11.6-14.8) % Plt Count 264 (150-400) X10^3/uL Neut % (Auto) 63.4 (50-75) % Lymph % (Auto) 20.3 L (25-40) % Angelina % (Auto) 14.1 H (3-14) % Eos % (Auto) 1.6 L (2-4) % Baso % (Auto) 0.6 (0-2) % Neut # (Auto) 3300 (6801-7738) /uL Lymph # (Auto) 1100 (4567-5738) /uL Angelina # (Auto) 700 (0-900) /uL Eos # (Auto) 100 (0-450) /uL Baso # (Auto) 0 (0-100) /uL Sodium 139 (137-145) mmol/L Potassium 3.9 (3.4-5.1) mmol/L Chloride 104 (98-107) mmol/L Carbon Dioxide 25 (22-32) mmol/L BUN 28 H (9-20) mg/dL Creatinine 0.84 (0.66-1.25) mg/dL Estimated GFR > 60 (>60) mL/min BUN/Creatinine Ratio 33.3 H (6-22) Glucose 83 (80-110) mg/dL Calcium 9.9 (8.4-10.2) mg/dL Total Bilirubin 0.5 (0.2-1.3) mg/dL AST 24 (17-59) IU/L ALT 14 (<50) IU/L Alkaline Phosphatase 83 (38-126) U/L Total Protein 7.5 (6.3-8.2) g/dL Albumin 4.1 (3.5-5.0) g/dL Globulin 3.4 (1.7-4.1) g/dL Albumin/Globulin Ratio 1.2 (1.0-2.8) Urine Color Yellow Urine Appearance Clear Urine pH 5.5 (4.5-8.0) Ur Specific [place] >=1.030 H (1.000-1.035) Urine Protein Negative (Negative) Urine Glucose (UA) Negative (Negative) g/dL Urine Ketones Negative (NEGATIVE) Urine Occult Blood Negative (Negative) Urine Nitrate Negative (Negative) Urine Bilirubin Negative (NEGATIVE) Urine Urobilinogen 0.2 (0.2) E.U./dL Ur Leukocyte Esterase Negative (NEGATIVE) Urine RBC None seen (0-5/HPF) Urine WBC None seen (0-5/HPF) Ur Squamous Epith Cells None seen (0-5/HPF) Urine Bacteria None seen (None) Ur Culture Indicated? Cult not indicated Vol Urine Centrifuged 10ml (spun) MDM Narrative Medical decision making narrative: Well-appearing patient with several months of ongoing shoulder pain. He does have decreased strength in his triceps on the left side, equal biceps strength and mentally retarded teacher strength. Negative Spurling sign and axial load test, this is likely related to the shoulder compartment. No other deficit to suggest central process. Laboratory work was obtained, no significant abnormalities identified. X-ray of the shoulder shows advanced arthritis but no lesions to suggest metastatic disease in the shoulder. Patient and updated of results. I recommended Orthopedic follow up and agreed with PCP recommendation for physical therapy. states that they are going to defer further evaluation until they get to [place], where they will be staying for the next several months. A referral to local orthopedic was provided any way. I recommended heat, ice, Tylenol as needed for pain. Discharge Plan Departure Patient Disposition: Home Clinical Impression: Left shoulder pain, Peripheral neuropathy Instructions: DI for Shoulder Tendinopathy Prescriptions: No Action benzonatate 100 mg capsule 100 mg PO TID PRN (Reason: cough) 7 Days Qty: 21 1RF Erleada 60 mg tablet 120 mg PO DAILY Qty: 60 11RF leuprolide acetate (6 month) 45 mg syringe 45 mg SUBCUT ONCE Qty: 1 0RF denosumab 60 mg/mL syringe 1 mg SUBCUT ONCE Qty: 1 0RF aspirin 81 mg tablet,chewable 81 mg PO DAILY acetaminophen [Tylenol Arthritis Pain] 650 mg tablet extended release 1,300 mg PO Q12H PRN donepezil 10 mg tablet 10 mg PO DAILY losartan 25 mg tablet 25 mg PO DAILY diphenhydramine HCl [Benadryl] 25 mg capsule 25 mg PO TID PRN magnesium 400 mg PO Referrals: Georgia Guajardo ARNP [Primary Care Provider] - Seven Brewer MD [Physician] - Stand Alone Forms: Patient Portal/API
[2023-10-29 14:18] LABS: Add Manual Diff / Slide Review NO; Basophils Absolute Auto 0 /uL (0-100); Basophils Percent Auto 0.6 % (0-2); Eosinophils Absolute Auto 100 /uL (0-450); Eosinophils Percent Auto 1.6 % (2-4); Hematocrit 37.3 % (41-53); Hemoglobin 12.4 g/dL (13.5-17.5); Lymphocytes Absolute Auto 1100 /uL (1100-4500); Lymphocytes Percent Auto 20.3 % (25-40); Mean Corpuscular HGB Conc 33.1 % (30-36); Mean Corpuscular Hemoglobin 31.4 PG (26-34); Mean Corpuscular Volume 94.8 fL (80-100); Monocytes Absolute Auto 700 /uL (0-900); Monocytes Percent Auto 14.1 % (3-14); Neutrophils Absolute Auto 3300 /uL (1500-7000); Neutrophils Percent Auto 63.4 % (50-75); Platelet Count 264 X10^3/uL (150-400); Red Blood Cell Count 3.94 X10^6/uL (4.5-5.9); Red Cell Distribution Width 13.4 % (11.6-14.8); White Blood Cell Count 5.3 X10^3/uL (4.5-11.0)
[2023-10-29 14:58] LABS: Alanine Aminotransferase 14 IU/L (<50); Albumin 4.1 g/dL (3.5-5.0); Albumin Globulin Ratio 1.2 (1.0-2.8); Alkaline Phosphatase 83 U/L (38-126); Aspartate Aminotransferase 24 IU/L (17-59); BUN Creatinine Ratio 33.3 (6-22); Bilirubin Total 0.5 mg/dL (0.2-1.3); Blood Urea Nitrogen 28 mg/dL (9-20); Calcium 9.9 mg/dL (8.4-10.2); Carbon Dioxide 25 mmol/L (22-32); Chloride 104 mmol/L (98-107); Estimated Glomerular Filt Rate > 60 mL/min (>60); Globulin 3.4 g/dL (1.7-4.1); Glucose 83 mg/dL (80-110); HEMOLYSIS < 15 (0-50); Potassium 3.9 mmol/L (3.4-5.1); Sodium 139 mmol/L (137-145); Total Protein 7.5 g/dL (6.3-8.2)
[2023-10-29 15:34] LABS: Urine Volume 10mL (spun)
[2023-10-29 15:46] LABS: Appearance Urine UA CLEAR; Bilirubin Urine UA NEGATIVE (NEGATIVE); Color Urine UA YELLOW; Glucose Urine UA NEGATIVE (Negative); Ketones Urine UA NEGATIVE (NEGATIVE); Leukocyte Esterase Urine UA NEGATIVE (NEGATIVE); Nitrite Urine UA NEGATIVE (Negative); Occult Blood Urine UA NEGATIVE (Negative); Protein Urine UA NEGATIVE (Negative); Specific Gravity Urine UA >=1.030 (1.000-1.035); Urobilinogen Urine UA 0.2 E.U./dL (0.2); pH Urine UA 5.5 (4.5-8.0)
[2023-10-29 15:59] LABS: Bacteria Urine None Seen; Culture Indicated Urine Cult Not Indicated; RBC Urine None Seen (0-5/HPF); Squamous Epithelial Cell Urine None Seen (0-5/HPF); WBC Urine None Seen (0-5/HPF)
== END 2023-10-29 17:28 | disposition home or self-care (01) ==
PROVIDERS: Emergency Provider Emergency Medicine; Family Provider Physician Assistant; PCP Family Medicine
DX: M25.512 Pain in left shoulder (principal); G62.9 Polyneuropathy, unspecified; R07.9 Chest pain, unspecified; R42 Dizziness and giddiness
CPT/HCPCS: 36415; 73030; 80053; 81001; 85025; 93005; 93010; 99284

== ENCOUNTER → 2024-01-17 13:47 | Outpatient (CLI) | payer MEDICARE, OTHER, SELFPAY ==
[2022-10-20 09:15] VITALS: BMI 26.6
[2024-01-17 14:28] LABS: Add Manual Diff / Slide Review NO; Basophils Absolute Auto 0 /uL (0-100); Basophils Percent Auto 0.9 % (0-2); Eosinophils Absolute Auto 0 /uL (0-450); Eosinophils Percent Auto 0.8 % (2-4); Hematocrit 38.4 % (41-53); Hemoglobin 12.9 g/dL (13.5-17.5); Lymphocytes Absolute Auto 1100 /uL (1100-4500); Lymphocytes Percent Auto 23.7 % (25-40); Mean Corpuscular HGB Conc 33.5 % (30-36); Mean Corpuscular Hemoglobin 31.8 PG (26-34); Mean Corpuscular Volume 94.9 fL (80-100); Monocytes Absolute Auto 600 /uL (0-900); Monocytes Percent Auto 12.9 % (3-14); Neutrophils Absolute Auto 2700 /uL (1500-7000); Neutrophils Percent Auto 61.7 % (50-75); Platelet Count 235 X10^3/uL (150-400); Red Blood Cell Count 4.05 X10^6/uL (4.5-5.9); Red Cell Distribution Width 13.8 % (11.6-14.8); White Blood Cell Count 4.4 X10^3/uL (4.5-11.0)
[2024-01-17 15:27] LABS: Alanine Aminotransferase 12 IU/L (<50); Albumin 3.8 g/dL (3.5-5.0); Albumin Globulin Ratio 1.2 (1.0-2.8); Alkaline Phosphatase 93 U/L (38-126); Aspartate Aminotransferase 27 IU/L (17-59); BUN Creatinine Ratio 23.6 (6-22); Bilirubin Total 0.6 mg/dL (0.2-1.3); Blood Urea Nitrogen 25 mg/dL (9-20); Calcium 9.2 mg/dL (8.4-10.2); Carbon Dioxide 24 mmol/L (22-32); Chloride 108 mmol/L (98-107); Estimated Glomerular Filt Rate > 60 mL/min (>60); Globulin 3.2 g/dL (1.7-4.1); Glucose 95 mg/dL (80-110); HEMOLYSIS < 15 (0-50); Potassium 4.1 mmol/L (3.4-5.1); Sodium 138 mmol/L (137-145)
[2024-01-17 15:46] LABS: Vitamin D 25 Hydroxy (D3) 59.6 ng/mL (30.0-100.0)
[2024-01-19 06:11] LABS: Cholesterol HDL Ratio 4.2 ratio (0.0-5.0); Cholesterol,Total 216 mg/dL (100-199); HDL Cholesterol 52 mg/dL (>39); LDL Cholesterol Cal 140 mg/dL (0-99); Triglycerides 136 mg/dL (0-149); VLDL Cholesterol Cal 24 mg/dL (5-40)
== END ==
LOC: LAB 13:49
PROVIDERS: Family Provider Physician Assistant; PCP Nurse Practitioner Family; Referring Provider Nurse Practitioner Family; Visit Provider Nurse Practitioner Family
DX: E78.5 Hyperlipidemia, unspecified (principal); E55.9 Vitamin D deficiency, unspecified; D72.819 Decreased white blood cell count, unspecified
CPT/HCPCS: 36415; 80053; 80061; 82306; 85025

== ENCOUNTER → 2024-01-19 11:14 | Outpatient (CLI) | payer MEDICARE, OTHER, SELFPAY ==
[2022-10-20 09:15] VITALS: BMI 26.6
[2024-01-19 16:23] LABS: Prostate Specific Antigen 10.3 ng/mL (0.10-4.00)
== END ==
PROVIDERS: Family Provider Physician Assistant; PCP Nurse Practitioner Family; Referring Provider Specialist; Visit Provider Specialist
DX: C61 Malignant neoplasm of prostate (principal); C79.51 Secondary malignant neoplasm of bone; C78.7 Secondary malignant neoplasm of liver and intrahepatic bile duct
CPT/HCPCS: 36415; 84153; 99215